=== PATIENT | male | born 1990 | race Caucasian/White ===

== ENCOUNTER 2017-06-23 18:51 | Emergency (ER) | payer MEDICAID ==
[~2017-06-23] VITALS: Ht 203.2 cm; Wt 141.5 kg
[~2017-06-23 18:51] MED LIST: APAP/HYDROCODON1 TA9 PO; AUGMENTIN 875-1 EACH PO; BUPROPION HCL75 M1 PO; CLONAZEPAM0.5 M1 PO; CYCLOBENZAPRINE10 M1 OR; DICLOFENAC 50MG50 MG PO; GABAPENTIN300 M1 PO; KEFLEX 500MG.500 MG PO; LISINOPRIL10 MG PO; MEDROL 4MG. DOSE4 MG PO; MOBIC7.5 MG PO; OXYCODONE 5MG TA5 MG PO; PANTOPRAZOLE SO40 M1 PO; PREDNISONE 20MG20 MG PO; PROTONIX 40MG T40 MG PO; TESSALON PERLE100 M1 PO; ZITHROMAX Z PA250 MG PO
[2017-06-23] MEDS ORDERED: ZITHROMAX Z-PA250 M2 PO (19:12)
[2017-06-23] MEDS ORDERED: PREDNISONE 20MG20 MG PO (19:12)
--- NOTE | 2017-06-23 19:12 | Urgent Treatment Center Report ---
History of Present Issue Date/Time Seen by Provider 06/23/17 1908 Visit Reason Pt arrived:Walked Presenting Problem:PT STATES HEADACHE, COLD CHILLS, COUGH, CONGESTION, TIREDNESS AND NAUSEA X1 WEEK Location if Accident: Onset of symptoms date/time:/ or onset unknown for:MEDICAL HX UNKNOWN Have you (or family members/close friends) recently traveled outside the [place]? N If Yes, where/when: Have you had exposure to infectious disease within the past month? TB? Other? Specify: Source patient Exam Limitations no limitations Comment 26-year-old male presents for cough, chest congestion, fever, chills, body aches , and nausea for one week. ALLERGIES Coded Allergies: tramadol (03/16/17) Home Medications Active Scripts Meloxicam (Mobic 7.5MG) 7.5 MG PO DAILY #7 TAB Prov: 04/06/17 Methylprednisolone (Medrol Dose Jason) 4 MG PO UD #1 JASON Prov: 05/10/17 Prednisone (Prednisone 20MG) 20 MG PO BID #10 TAB Prov: 04/01/17 Reported Medications BUPROPION HCL (Bupropion HCl 75MG) 75 MG PO DAILY #60 Lisinopril 10 MG PO DAILY #30 OXYCODONE IR (Oxycodone IR) 5 MG PO Q4HP PRN PAIN #90 Gabapentin 300 MG PO BID #60 Clonazepam (Clonazepam 0.5MG) 0.5 MG PO QHS #60 Pantoprazole Sodium 40 MG PO DAILY #30 History Medical History General CAD? No Angina: No [place]: No Hypertension? Yes Hyperlipidemia? No CHF? No DVT? No PE? No COPD? No Asthma? No Anemia? No GERD? No Gastric ulcers? No GI Bleed? No Hernia? No Thyroid Problems? No Hypothyroidism? No CVA? No Seizures? No Diabetes? No Renal Insuffiency? No UTI? No Stones? No BPH? No GB Disease: No Nephritic Syndrome? No Asplenia? No Hepatitis? No Sickle Cell Disease? No Arthritis? No Migraines? No Cataracts? No Glaucoma? No MRSA? No HIV? No TB? No Anxiety? Yes Depression? No Cancer? No More? Yes Additional hx: BACK PROBLEMS, ANXIETY, LUPUS Immunization HX DT/Tetanus 1-4 Years Ago Surgical Hx Previous Surgery?Y TONSILS Social History Smoking Hx Smoker: Current Every Day Smoker Tobacco: Yes Type Cigarettes Packs/day 1 1/2 - 2 Packs Alcohol Alcohol: No Review of Systems All Other Systems Reviewed and Negative Respiratory see HPI, cough, wheezing Physical Exam Vital Signs Vital Signs Date Time Temp Pulse Resp B/P Pulse O2 O2 Flow FiO2 Ox Delivery Rate 06/23 2003 97.7 67 20 143/99 100 06/23 1902 97.7 67 20 143/99 100 - WBC >12,000 or <4,000 or 10% bands? 2 or more SIRS Criteria Met? B/P:143/99 MAP:113 Creatinine >2.0? UA output<0.5ml/kg/hr for 2 hrs? Platelet count >100,000? Lactate >2.0mmol/1? INR >1.2 or PTT > than 60 sec? Evidence of Organ Dysfunction? Provider documented clinical suspician of infection? Sepsis Criteria Count: 1 Sepsis Risk: General Appearance normal appearance, WD/WN, no apparent distress Ear, Nose, Throat hearing grossly normal, normal ENT inspection, normal pharynx Neck normal inspection, full range of motion Respiratory Status Yes: trachea midline, chest symmetrical, non tender chest. No: respiratory distress. Lung Sounds posterior: decreased breath sounds, rhonchi, wheezing. left: decreased breath sounds, rhonchi, wheezing. Cardiovascular normal exam, regular rate/rhythm Neurologic alert, normal exam, oriented x 3 Medical Decision Making LABS/Meds/Orders Pt receiving controlled substance in ED? No Results/Orders Laboratory Tests 06/23/17 1930: Sodium 140, Potassium 3.8, Chloride 102, Carbon Dioxide 29, BUN 18, Creatinine 1.0, Estimated Creat Clear 220 H, Estimated GFR (MDRD) 89, Glucose 101, Calcium 9.4, Total Bilirubin 0.7, AST 24, ALT 34, Alkaline Phosphatase 90, Total Protein 7.8, Albumin 4.2, Globulin 3.6 H, Albumin/Globulin Ratio 1.2, WBC 6.8, RBC 4.88 , Hgb 14.7, Hct 44.1, MCV 90.4, RDW 13.8, Plt Count 148, Gran % 68.3, Gran # 4.6 , Lymphocytes % 27.3, Monocytes % 4.4, Lymphocytes # 1.9, Monocytes # 0.3, PUBS MCHC 33.3, MCH 30.1 Orders Procedure Date/time Status CHEST(2 VIEWS-NOT PORTABLE) 06/23 1907 Active CBC WITH AUTO DIFF 06/23 1907 Complete CHEM 12 PROFILE 06/23 1907 Complete Departure Departure Time of Disposition 1909 Disposition DC Home or Self Care(routine) Clinical Impression Primary Impression: Acute bronchitis Qualifiers: Bronchitis organism: unspecified organism Qualified Code: J20.9 - Acute bronchitis, unspecified Condition STABLE Referrals Chai NAVARRO,Guevara Shaffer (Family) Patient Instructions Acute Bronchitis, DI for Acute Bronchitis Additional Instructions Medications as ordered Follow-up with PCP this week if no improvement Tylenol Motrin as needed for pain or fever Return or be seen in the ER if symptoms worsen or do not improve Increase fluids Discharge Counseling Counseled pt/family regarding diagnosis, test results, medications/RX, home care, follow up needs Prescriptions Current Visit Scripts Azithromycin (Zithromax) 250 MG PO DAILY #6 TAB USE DIRECTED. Prednisone (Prednisone 20MG) 20 MG PO BID 5 Days at 2004
[2017-06-23 19:43] LABS: HEMOGLOBIN 14.7 g/dL (14.1-18.0)
[2017-06-23 19:44] LABS: LYMPH # 1.9 K/mm3 (0.7-4.5); LYMPH % 27.3 % (10-50)
[2017-06-23 20:03] VITALS: BP 143/99
--- NOTE | 2017-06-23 20:12 | RADIOLOGY REPORT PS360 ---
CHEST(2 VIEWS-NOT PORTABLE) INDICATION: Cough COMPARISON: PA and lateral chest 12/28/2016 FINDINGS: The lung white are well expanded and appear clear of infiltrate. The cardiomediastinal silhouette and vascularity are normal. The costophrenic angles are clear. The bony thorax is normal. IMPRESSION: Normal chest.
== END 2017-06-23 20:08 | disposition home or self-care (01) ==
LOC: UTC 18:51
PROVIDERS: Nurse Practitioner Family
DX: J20.9 Acute bronchitis, unspecified (principal); I10 Essential (primary) hypertension; F17.210 Nicotine dependence, cigarettes, uncomplicated; M35.9 Systemic involvement of connective tissue, unspecified; Z79.891 Long term (current) use of opiate analgesic; Z79.899 Other long term (current) drug therapy

== ENCOUNTER 2017-07-13 06:17 | Emergency (ER) | payer MEDICAID ==
[~2017-07-13] VITALS: Ht 203.2 cm; Wt 140.6 kg
--- NOTE | 2017-07-13 06:43 | Emergency Room Report ---
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 N Clinical Suspician of Infection? N Mental Status: 1 - Regular (Normal Baseline) Sepsis Risk:Low Sepsis Risk Have you (or family members/close friends) recently traveled outside the [place]? N If Yes, where/when: Have you had exposure to infectious disease within the past month? N TB? Other? Specify: Source patient, RN notes reviewed, family, old records Exam Limitations no limitations Comment hit scalp against light bulb with lac this am Cardiac Chest Pain Chest pain indicative of cardiac No Timing/Duration this morning Severity moderate ALLERGIES Coded Allergies: tramadol (03/16/17) Home Medications Active Scripts Azithromycin (Zithromax) 250 MG PO DAILY #6 TAB Prov: 06/23/17 Prednisone (Prednisone 20MG) 20 MG PO BID 5 Days Prov: 06/23/17 Meloxicam (Mobic 7.5MG) 7.5 MG PO DAILY #7 TAB Prov: 04/06/17 Methylprednisolone (Medrol Dose Jason) 4 MG PO UD #1 JASON Prov: 05/10/17 Prednisone (Prednisone 20MG) 20 MG PO BID #10 TAB Prov: 04/01/17 Reported Medications BUPROPION HCL (Bupropion HCl 75MG) 75 MG PO DAILY #60 Lisinopril 10 MG PO DAILY #30 OXYCODONE IR (Oxycodone IR) 5 MG PO Q4HP PRN PAIN #90 Gabapentin 300 MG PO BID #60 Clonazepam (Clonazepam 0.5MG) 0.5 MG PO QHS #60 Pantoprazole Sodium 40 MG PO DAILY #30 History Medical History General CAD? No Angina: No [place]: No Hypertension? Yes Hyperlipidemia? No CHF? No DVT? No PE? No COPD? No Asthma? No Anemia? No GERD? No Gastric ulcers? No GI Bleed? No Hernia? No Thyroid Problems? No Hypothyroidism? No CVA? No Seizures? No Diabetes? No Renal Insuffiency? No End Stage Renal Disease? No UTI? No Stones? No BPH? No GB Disease: No Nephritic Syndrome? No Asplenia? No Hepatitis? No Sickle Cell Disease? No Arthritis? No Migraines? No Cataracts? No Glaucoma? No MRSA? No HIV? No TB? No Anxiety? Yes Depression? No Cancer? No More? Yes Additional hx: BACK PROBLEMS, ANXIETY, LUPUS Immunization Hx DT/Tetanus 1-4 Years Ago Surgical Hx Previous Surgery?Y TONSILS Social History Smoking Hx Smoker: Current Every Day Smoker Tobacco: Yes Type Cigarettes Packs/day 1 1/2 - 2 Packs Alcohol Alcohol: No Drugs none Review of Systems All Other Systems Reviewed and Negative Constitutional denies fever Eyes denies drainage ENT denies: ear pain, epistaxis, throat swelling. Respiratory denies cough, denies shortness of breath Cardiovascular denies chest pain, denies syncope Gastrointestinal denies abdominal pain, denies diarrhea, denies vomiting Genitourinary denies: dysuria, frequency, hesitancy, hematuria. Musculoskeletal denies back pain, denies joint pain, denies joint swelling, denies neck pain Skin see HPI, denies rash, other Psychiatric/Neurological denies headache, denies seizure Physical Exam Vital Signs Vital Signs Date Time Temp Pulse Resp B/P Pulse O2 O2 Flow FiO2 Ox Delivery Rate 07/13 0622 97.9 79 20 131/99 96 - WBC >12,000 or <4,000 or 10% bands? 2 or more SIRS Criteria Met? B/P:131/99 MAP:109 Creatinine >2.0? UA output<0.5ml/kg/hr for 2 hrs? Platelet count >100,000? Lactate >2.0mmol/1? INR >1.2 or PTT > than 60 sec? Evidence of Organ Dysfunction? Provider documented clinical suspician of infection? N Sepsis Criteria Count: 1 Sepsis Risk: Low Sepsis Risk General Appearance no apparent distress Eye Exam - bilateral eye PERRL, bilateral eye EOMI Ear, Nose, Throat normal ENT inspection Neck supple Respiratory Status No: respiratory distress. 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 No Results/Orders Current Medication Orders Sig/Jonathan Start time Last Medication Dose Route Stop Time Status Admin Lidocaine HCl 0 .STK-MED ONE 07/13 0644 DC .ROUTE Procedures Laceration/Wound Repair Laceration/Wound Repair Risks/benefits discussed with pt/guardian? Yes Tetanus status up to date Wound Location head Wound Length (cm) 1 Wound's Depth, Shape sucutaneous tissue Wound Explored no FB identified Risk of retained FB explained to pt/guardian? Yes Irrigated w/ Saline (ccs) 0 Wound Prep Hibiclens, Saline Anesthesia 1% Lidocaine, Local Volume Anesthetic (ccs) 2 Wound Debrided none Wound Repaired With karina Layer Closure No Total Number Sutures 3 Sterile Dressing Applied No Splint Applied No Sling Applied No Departure Departure Time of Disposition 0643 Disposition DC Home or Self Care(routine) Clinical Impression Primary Impression: Scalp laceration Qualifiers: Encounter type: initial encounter Qualified Code: S01.01XA - Laceration without foreign body of scalp, initial encounter Condition STABLE Patient Instructions DI for Laceration Repair -- [place] Additional Instructions karina out 10 days Discharge Counseling Counseled pt/family regarding diagnosis, follow up needs ED Critical Care Critical Care No at 0674
[2017-07-13 06:55] VITALS: BP 131/99
--- OUTSIDE RECORDS SUMMARY | 2017-07-20 02:21 | External Medical Summary Rpt | CCD ---
Author Author , MARCELLA NARANJO Address Unknown Phone [email or web address] Care Team Providers Care Radius Grinder Name Role Phone PANG, PANG Unavailable Unavailable [facility] Unavailable Unavailable PHYSICIANS, [facility] DEREK REED Unavailable Unavailable JR FITZPATRICK FULLER, Unavailable Unavailable MIKI MICHELLE Unavailable Unavailable [facility] Unavailable Unavailable [facility], [facility] DOWD, DOWD Unavailable Unavailable DOW[facility], DOWD Unavailable Unavailable [facility], Unavailable Unavailable [facility] Unavailable Unavailable IM[facility]ING [facility], [facility], Unavailable Unavailable PLL[facility], [facility] RENUSCH, RENUSCH Unavailable Unavailable MARILY, Unavailable Unavailable MARILY NAVARRETE, Unavailable Unavailable [facility] Purpose Continuity of Care Document - 04-29-2014 through 2016 Problems Code Diagnosis DOS Provider Status [id number] OTHER LONG 05-18-2017 [facility] CURRENT INC DRUG THERAPY G8929 OTHER 05-11-2017 [facility]RONIC [facility] PAIN PLL[facility] I10 ESSENTIAL 05-11-2017 [facility] HYPERTENSIO INC N M545 LOW BACK 05-11-2017 [facility] PAIN [facility] Z720 TOBACCO USE 05-11-2017 [facility] INC L34935 PAIN IN 04-06-2017 [facility] 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 [facility] NEC E651LDC CONTUSION 04-06-2017 [facility] LOWER BACK PHYSICIANS, & PELVIS PLLC INITIAL ENCOUNTER [id number] STRAIN 04-06-2017 [facility] MUSCLE [facility], FASCIA & PLLC TENDON LOW BACK INITIAL N23 UNSPECIFIED 03-25-2017 [facility] RENAL [facility], COLIC PLLC R1012 LEFT UPPER 03-25-2017 [facility] PAIN INC R109 UNSPECIFIED 03-25-2017 [facility] ABDOMINAL [facility], PAIN PLLC K20159 PAIN IN 03-16-2017 [facility] LEFT MEDICAL SHOULDER [facility] X28825 PAIN IN 03-16-2017 [facility]IP [facility] H12290 PAIN IN 03-16-2017 [facility] LEFT ANKLE [facility]ICAL [facility] [id number] CONTUSION 03-16-2017 [facility] OF LEFT HIP PHYSICIANS, INITIAL PLLC ENCOUNTER E5866MC CONTUSION 03-16-2017 [facility] OF LEFT PHYSICIANS, LOWER LEG PLLC INITIAL ENCOUNTER [id number] CONTUSION 03-16-2017 [facility] ANKLE INC INITIAL ENCOUNTER T148 OTHER 03-16-2017 [facility] INJURY OF PHYSICIANS, UNSPECIFIED PLLC BODY REGION R070 PAIN IN 03-08-2017 [facility] THROAT [facility], PLLC R0989 OTH SPEC SX 03-08-2017 [facility] & SIGNS PHYSICIANS, INVLV THE PLLC CIRC & RESP SYS R42 DIZZINESS 03-08-2017 [facility] GIDDINESS INC M542 CERVICALGIA 02-05-2017 [facility] INC H5203 HYPERMETROP 02-02-2017 [facility] IA BILATERAL M5416 RADICULOPAT 01-17-2017 [facility] HY LUMBAR [facility]YS[facility] GROUP R768 OTH SPEC 01-17-2017 [facility] ABNORMAL PHYS[facility]ANS IMMUNOLOGIC GROUP AL FIND IN SERUM K219 GASTRO-ESOP 01-14-2017 [facility] H REFLUX PHYSICIANS, DISEASE PLLC WITHOUT ESOPHAGITIS R4702 DYSPHASIA 01-14-2017 [facility] [id number] UNS FB 01-14-2017 [facility] PHARYNX PHYSICI[facility], CAUSING OTH PLLC INJURY INIT ENC Z0000 ENCOUNTER 01-09-2017 [facility] MED EXAM INC W/O ABNORMAL FIND M5116 INTERVERTEB 01-07-2017 [facility] D/O INC W/RADICULOP ATHY LUMB RGN J209 ACUTE 12-28-2016 [facility] UNSPECIFIED INC R0602 SHORTNESS 12-28-2016 [facility] Z164SVE SPRAIN 12-10-2016 [facility] CERVICAL PHYSICIANS SPINE INITIAL ENCOUNTR J0100 ACUTE 11-22-2016 [facility] SINUSITIS INC UNSPECIFIED Allergies, Adverse Reactions, Alerts Clinical Alert Notifications Alert Member has >/= 10 ED visits within the past 365 days Medications Na ND Rx Da Fi Fi Am Da Di Ph RX Ph St me C No te ll ll ou ys ag ar # ys at rm s nt no ma ic us Or Da si cy ia de te s n re d HY 00 09 10 [address] 40 -0 -0 .0 00 TE ti OC 60 8- 6- 00 01 ve OD 12 20 20 19 AI ON 30 17 17 88 D -A 1 05 PH CE AR TA MA ID CY NO PH #3 EN 93 8 5- 32 5 LI 00 09 09 30 30 00 EA Ac SI 37 -0 -[address] ti NO 82 3- 9- 00 00 SI ve DE 07 20 20 50 DE IL 41 17 17 01 0 95 PH 10 AR MA MG CY TA OF BL CY ET NT HI AN A IN C ES 65 08 09 30 30 00 EA Ac CI 86 -1 -[address] ti TA 20 1- 8- 00 00 SI ve LO 37 20 20 49 DE DE 40 17 17 76 AM 1 51 PH AR 10 MA CY MG OF TA CY BL NT ET HI AN A IN C HY 00 08 09 [address] 40 -1 -[address] ti OC 60 1- 8- 00 00 SI ve OD 12 20 20 49 DE ON 30 17 17 76 -A 5 00 PH CE AR TA MA ID CY NO PH OF EN CY NT 5- HI 32 AN 5 A IN C GA 67 08 09 60 30 00 EA Ac BA 87 -1 -[address] ti PE 70 6- 8- 00 00 SI ve NT 22 20 20 49 DE IN 30 17 17 47 5 78 PH 30 AR 0 MA MG CY CA OF PS CY UL NT E HI AN A IN C CL 00 08 09 60 30 00 EA Ac ON 22 -1 -[address] ti AZ 83 6- 8- 00 00 SI ve EP 00 20 20 49 DE AM 35 17 17 47 0 77 PH 0. AR 5 MA MG CY TA OF BL CY ET NT HI AN A IN C LI 00 07 08 30 30 00 EA Ac SI 18 -3 -[address] ti NO 50 1- 5- 00 00 SI ve DE 61 20 20 49 DE IL 01 17 17 63 0 26 PH 10 AR MA MG CY TA OF BL CY ET NT HI AN A IN C BU 00 07 08 60 30 00 EA Ac DE 59 -3 -[address] ti OP 13 1- 5- 00 00 SI ve IO 54 20 20 49 DE N 10 17 17 34 HC 5 91 PH L AR SR MA CY 15 0 OF MG CY NT TA HI BL AN ET A IN C CL 00 07 08 60 30 00 EA Ac ON 22 -1 -[address] ti AZ 83 8- 1- 00 00 SI ve EP 00 20 20 49 DE AM 35 17 17 47 0 77 PH 0. AR 5 MA MG CY TA OF BL CY ET NT HI AN A IN C GA 67 07 08 60 30 00 EA Ac BA 87 -1 -[address] ti PE 70 8- 1- 00 00 SI ve NT 22 20 20 49 DE IN 30 17 17 47 5 78 PH 30 AR 0 MA MG CY CA OF PS CY UL NT E HI AN A IN C OX 65 07 08 90 30 00 EA Ac YC 16 -1 -[address] ti OD 20 8- 1- 00 00 SI ve ON 20 20 20 49 DE -A 75 17 17 47 CE 0 84 PH TA AR ID MA NO CY PH EN OF CY 7. NT 5- HI 32 AN 5 A IN C HY 00 07 07 [address] 40 -0 -[address] ti OC 60 5- 8- 00 00 SI ve OD 12 20 20 49 DE ON 40 17 17 34 -A 5 80 PH CE AR TA MA ID CY NO PH OF CY 7. NT 5- HI 32 AN 5 A IN C BU 60 07 07 60 30 00 EA Ac DE 50 -0 -[address] ti OP 50 1- 8- 00 00 SI ve IO 15 20 20 48 DE N 80 17 17 65 HC 1 70 PH L AR 75 MA CY MG OF TA CY BL NT ET HI AN A IN C LI 00 07 07 30 30 00 EA Ac SI 18 -0 -[address] ti NO 50 1- 8- 00 00 SI ve DE 61 20 20 48 DE IL 01 17 17 65 0 64 PH 10 AR MA MG CY TA OF BL CY ET NT HI AN A IN C OX 13 06 07 90 30 00 EA Ac YC 10 -2 -[address] ti OD 70 0- 4- 00 00 SI ve ON 05 20 20 49 DE E 50 17 17 19 HC 1 77 PH L AR 5 MA MG CY TA OF BL CY ET NT HI AN A IN C DI 00 06 07 30 15 00 EA Ac CL 22 -0 -[address] ti OF 82 9- 7- 00 00 SI ve EN 55 20 20 49 DE AC 09 17 17 08 6 19 PH SO AR D MA EC CY 50 OF CY MG NT HI TA AN B A IN C CL 06 06 60 30 00 EA Ac ON 18 -0 -[address] ti AZ 50 6- 0- 00 00 SI ve EP 06 20 20 49 DE AM 30 17 17 03 5 04 PH 0. AR 5 MA MG CY TA OF BL CY ET NT HI AN A IN C HY 06 90 [address] 40 -0 -[address] ti OC 60 6- 0- 00 00 SI ve OD 12 20 20 49 DE ON 40 17 17 03 -A 5 05 PH CE AR TA MA ID CY NO PH OF CY 7. NT 5- HI 32 AN 5 A IN C GA 06 60 30 00 EA Ac BA 87 -0 -[address] ti PE 70 7- 0- 00 00 SI ve NT 22 20 20 48 DE IN 30 17 17 65 5 63 PH 30 AR 0 MA MG CY CA OF PS CY UL NT E HI AN A IN C LI 06 30 30 00 EA Ac SI 18 -0 -[address] ti NO 50 7- 0- 00 00 SI ve DE 61 20 20 48 DE IL 01 17 17 65 0 64 PH 10 AR MA MG CY TA OF BL CY ET NT HI AN A IN C BU 60 05 06 60 30 00 EA Ac DE 50 -1 -[address] ti OP 50 8- 6- 00 00 SI ve IO 15 20 20 48 DE N 80 17 17 65 HC 1 70 PH L AR 75 MA CY MG OF TA CY BL NT ET HI AN A IN C HY 06 [address] 40 -0 -[address] ti OC 60 8- 2- 00 00 SI ve OD 12 20 20 48 DE ON 40 17 17 65 -A 5 65 PH CE AR TA MA ID CY NO PH OF CY 7. NT 5- HI 32 AN 5 A IN C GA 06 60 30 00 EA Ac BA 87 -0 -[address] ti PE 70 8- 2- 00 00 SI ve NT 22 20 20 48 DE IN 30 17 17 65 5 63 PH 30 AR 0 MA MG CY CA OF PS CY UL NT E HI AN A IN C LI 00 05 06 30 30 00 EA Ac SI 18 -0 -[address] ti NO 50 8- 2- 00 00 SI ve DE 61 20 20 48 DE IL 01 17 17 65 0 64 PH 10 AR MA MG CY TA OF BL CY ET NT HI AN A IN C OX 13 04 05 90 30 00 EA Ac YC 10 -1 -[address] ti OD 70 8- 2- 00 00 SI ve ON 05 20 20 48 DE E 50 17 17 40 HC 1 45 PH L AR 5 MA MG CY TA OF BL CY ET NT HI AN A IN C BU 60 04 05 60 30 00 WA Ac DE 50 -1 -1 .0 00 L- ti OP 50 8- 2- 00 07 MA ve IO 15 20 20 48 RT N 80 17 17 30 HC 1 87 PH L AR 75 MA CY MG #5 TA 91 BL ET CL 16 04 05 60 30 00 WA Ac ON 72 -1 -1 .0 00 L- ti AZ 90 8- 2- 00 04 MA ve EP 13 20 20 53 RT AM 61 17 17 00 6 58 PH 0. AR 5 MA MG CY TA #5 BL 91 ET PA 68 04 05 30 30 00 WA Ac NT 64 -0 -0 .0 00 L- ti OP 50 9- 5- 00 07 MA ve RA 49 20 20 48 RT ZO 27 17 17 12 LE 0 14 PH AR SO MA D CY DR #5 40 91 MG TA B HY 00 04 05 [address] 40 -1 -0 .0 00 TE ti OC 60 2- 5- 00 01 ve OD 12 20 20 17 AI ON 40 17 17 96 D -A 1 89 PH CE AR TA MA ID CY NO PH #3 93 7. 8 5- 32 5 LI 54 04 05 30 30 00 WA Ac SI 45 -1 -0 .0 00 L- ti NO 80 2- 5- 00 07 MA ve DE 99 20 20 48 RT IL 71 17 17 20 0 01 PH 10 AR MA MG CY TA #5 BL 91 ET GA 53 04 05 60 30 00 WA Ac BA 74 -1 -0 .0 00 L- ti PE 60 2- 5- 00 07 MA ve NT 10 20 20 48 RT IN 20 17 17 20 5 02 PH 30 AR 0 MA MG CY CA #5 PS 91 UL E PO 62 04 05 51 30 00 WA Ac LY 17 -1 -0 0. 00 L- ti ET 50 2- 5- 00 07 MA ve HY 44 20 20 0 48 RT LE 21 17 17 20 NE 5 03 PH AR GL MA YC CY OL #5 33 91 50 PO WD HY 00 04 04 30 [address] 40 -0 -2 .0 00 L- ti OC 60 4- 8- 00 02 MA ve OD 12 20 20 23 RT ON 30 17 17 98 -A 1 04 PH CE AR TA MA ID CY NO PH #5 EN 91 5- 32 5 GA 53 04 04 90 30 00 IL Ac BA 74 -0 -2 .0 00 L- ti PE 60 4- 8- 00 07 MA ve NT 10 20 20 48 RT IN 10 17 17 04 5 51 PH 10 AR 0 MA MG CY CA #5 PS 91 UL E DE 00 04 04 10 5 00 IL Ac ED 14 -0 -2 .0 00 L- ti NI 39 4- 8- 00 07 MA ve SO 73 20 20 48 RT NE 80 17 17 00 5 75 PH 20 AR MA MG CY TA #5 BL 91 ET AM 00 03 04 20 10 00 IL Ac OX 78 -2 -2 .0 00 L- ti -C 11 3- 1- 00 07 MA ve LA 85 20 20 47 RT V 22 17 17 82 87 0 43 PH 5- AR 12 MA 5 CY MG #5 TA 91 BL ET BE 68 03 04 30 10 00 [facility] [place] 38 -2 -2 .0 00 L- ti ON 20 3- 1- 00 07 MA ve AT 24 20 20 47 RT AT 70 17 17 82 E 1 44 PH 10 AR 0 MA MG CY CA #5 PS 91 UL E CY 10 03 03 30 10 00 RI Ac CL 70 -0 -3 .0 00 TE ti OB 20 6- 1- 00 01 ve EN 00 20 20 17 AI ZA 75 17 17 38 D DE 0 05 PH IN AR E MA 10 CY MG #3 93 TA 8 BL ET NA 68 03 03 30 15 00 RI Ac DE 46 -0 -3 .0 00 TE ti OX 20 6- 1- 00 01 ve EN 19 20 20 17 AI 00 17 17 38 D 50 1 06 PH 0 AR MG MA CY TA BL #3 ET 93 8 AZ 59 02 03 6. 5 00 IL Ac IT 76 -1 -1 00 00 L- ti HR 23 6- 7- 0 07 MA ve OM 06 20 20 47 RT YC 00 17 17 10 IN 1 53 PH AR 25 MA 0 CY MG #5 TA 91 BL ET Results Labs Lab Lab Date Result Refere Interp Status Commen Order Detail nces retati t Range on Drugs identified in Urine by Screen method (05-18-2017 09:35) Ampheta 0811-2 NEGATIV <1000 complet mine 017 E ed [Presen 09:35 ce] in Urine by Screen method 11-Hydr NEGATIV <50 complet oxy 017 E ed delta-9 09:35 tetrahy drocann abinol [Presen ce] in Unspeci fied specime n Urinalysis dipstick W Reflex Microscopic panel in Urine (05-15-2017 22:45) Bacteri 1+ O complet a 017 ed [Presen 22:45 ce] in Urine sedimen t by Light microsc opy Mucus OCC NONE complet [Presen 017 ed ce] in 22:45 Urine sedimen t by Light microsc opy Erythro OCC 0 complet cytes 017 ed [Presen 22:45 ce] in Urine sedimen t by Light microsc opy Drugs identified in Urine by Screen method (05-15-2017 22:45) Ampheta NEGATIV <1000 complet mine 017 E ed [Presen 22:45 ce] in Urine by Screen method 11-Hydr NEGATIV <50 complet oxy 017 E ed delta-9 22:45 tetrahy drocann abinol [Presen ce] in Unspeci fied specime n Urinalysis dipstick W Reflex Microscopic panel in Urine (05-15-2017 22:45) Appeara CLEAR CLEAR complet nce of 017 ed Urine 22:45 Bilirub NEGATIV NEG complet in 017 E ed [Presen 22:45 ce] in Urine by Test strip Erythro NEGATIV NEG complet cytes 017 E ed [Presen 22:45 ce] in Urine Color YELLOW YELLOW complet of 017 ed Urine 22:45 Ketones NEGATIV NEG complet 017 E ed [Presen 22:45 ce] in Urine by Automat ed test strip Mucus NEGATIV NEG complet [Presen 017 E ed ce] in 22:45 Urine sedimen t by Light microsc opy Nitrite NEGATIV NEG complet 017 E ed [Presen 22:45 ce] in Urine by Test strip Urobili 08-08-2 0.2 NEG complet nogen 017 ed [Presen 22:45 ce] in Urine by Test strip Drugs identified in Urine by Screen method (04-24-2017 09:45) Ampheta 04-24-2 NEGATIV <1000 complet mine 017 E ed [Presen 09:45 ce] in Urine by Screen method 11-Hydr 04-24-2 NEGATIV <50 complet oxy 017 E ed delta-9 09:45 tetrahy drocann abinol [Presen ce] in Unspeci fied specime n Drugs identified in Urine by Screen method (04-11-2017 14:15) Ampheta --2 NEGATIV <1000 complet mine 017 E ed [Presen 14:15 ce] in Urine by Screen method 11-Hydr 04-11-2 NEGATIV <50 complet oxy 017 E ed delta-9 14:15 tetrahy drocann abinol [Presen ce] in Unspeci fied specime n Drugs identified in Urine by Screen method (03-27-2017 13:10) Ampheta 03-27-2 NEGATIV <1000 complet mine 017 E ed [Presen 13:10 ce] in Urine by Screen method 11-Hydr 03-27-2 NEGATIV <50 complet oxy 017 E ed delta-9 13:10 tetrahy drocann abinol [Presen ce] in Unspeci fied specime n Drugs identified in Urine by Screen method (03-13-2017 13:15) Ampheta 06--2 NEGATIV <1000 complet mine 017 E ed [Presen 13:15 ce] in Urine by Screen method 11-Hydr 03-13-2 NEGATIV <50 complet oxy 017 E ed delta-9 13:15 tetrahy drocann abinol [Presen ce] in Unspeci fied specime n SYPHILIS IGG TEST (EIA) (06-10-2014 08:00) Community Outreach Advocate: Sadie Marquez MD FCAP Lab: [facility] Division of Laboratory Services Lab Address: [address] [place] [address], [address] [place] [address] 06-10-2014 8:00 am Specimen Collection Start Date/Time: Manager Credit Risk: Specimen Ming'valdez 06-15-2014 9:29 am Date/Time: Ordering Physician: ASIYA BEAL (RENETTA) 06-16-2014 8:31 am Results Rpt/Status Change Date/Time: This report contains patient information that must be protected in accordance with the Health Insurance Portability and Accountability Act. SYPHILI NON-GHASSAN complet S IGG 014 CTIVE ed TEST 08:00 (EIA) Comment: METHOD OF ANALYSIS: EIA Comment: NORMAL RANGE: NON-REACTIVE Comment: \E\.br\E\This report contains patient information that must be protected in accordance with the Health Insurance Portability and Accountability Act. CHART [id number] complet NUMBER 014 ed 08:00 SPECIME BLOOD complet N 014 ed SOURCE 08:00 PURPOSE ROUTINE complet OF 014 ed EXAM 08:00 ETHNICI W complet TY 014 ed 08:00 COLLECT N/A complet OR 014 ed 08:00 Treponema pallidum IgG Ab [Presence] in Serum by Immunoassay (06-10-2014 08:00) Trepone NON-GHASSAN complet ma 014 CTIVE ed pallidu 08:00 m IgG Ab [Presen ce] in Serum by Immunoa ssay Treponema pallidum IgG Ab [Presence] in Serum by Immunoassay (06-10-2014 08:00) COLLECT N/A complet OR 014 ed 08:00 ETHNICI W complet TY 014 ed 08:00 PURPOSE ROUTINE complet OF 014 ed EXAM 08:00 SPECIME BLOOD complet N 014 ed SOURCE 08:00 CHART [id number] complet NUMBER 014 ed 08:00 Trepone Pending complet ma 014 ed pallidu 08:00 m IgG Ab [Presen ce] in Serum by Immunoa ssay Procedures Procedure DOS Code Location Performer Comment DRUG TEST 67110 [facility] QUAL DIR INC INC OPTICAL OBS PER DAY THERAPEUT 00227 [facility] IC [facility] PROPHYLAC INC INC TIC/DX INJECTION SUBQ/IM DRUG TEST 64840 [facility] QUAL DIR INC INC OPTICAL OBS PER DAY DRUG TEST 87911 [facility]V [facility] QUAL DIR INC INC OPTICAL OBS PER DAY RADEX 94667 [facility] SPINE [facility] LUMBOSACR INC INC AL MINIMUM 4 VIEWS RADEX 30501 [facility] SACRUM & [facility] COCCYX INC INC MINIMUM 2 VIEWS RADIOLOGI 03306 [facility] C [facility] EXAMINATI INC INC ON PELVIS 1/2 VIEWS DRUG TEST 60372 [facility] QUAL DIR INC INC OPTICAL OBS PER DAY COMPREHEN 64573 [facility] SIVE [facility] METABOLIC INC INC PANEL URNLS DIP 00928 [facility] STICK/TAB INC INC LET RGNT AUTO W/O MICROSCOP Y FINAL G9638 [place] [facility] REPORTS 7 MEDICAL W/O DOC IMAGING 1/MORE ASS DOSE REDUCTION TECH FINAL G9551 [place] [facility] REPR ABD 7 MEDICAL IMAG STS IMAGING W/O ASS INCIDNT FND LES NTD: THER 66059 [facility] PROPH/DX [facility] NJX EA INC INC SEQL IV PUSH SBST/[place] [address] [facility]OM[facility] & 7 MEDICAL PELVIS IMAGING [place] [address] [facility] INFUSION [facility] THERAPY/P INC INC ROPHYLAXI S /DX 1ST TO 1 HR THERAPEUT 31257 [facility] IC [facility] INJECTION INC INC IV PUSH EACH NEW DRUG BLOOD 03228 [facility] COUNT [facility] COMPLETE INC INC AUTO&AUTO DIFRNTL WBC RADEX 11663 [facility] HIPS [facility] BILATERAL INC INC WITH PELVIS 2 VIEWS RADEX 67794 [facility] SACRUM & 7 MEDICAL COCCYX IMAGING MINIMUM 2 ASS VIEWS RADEX 11003 [place] [facility] HIPS 7 MEDICAL BILATERAL IMAGING WITH ASS PELVIS 3-4 VIEWS RADEX 72547 [facility] ANKLE 7 MEDICAL COMPLETE IMAGING MINIMUM 3 ASS VIEWS DRUG TEST G0481 [facility] DEFINITV [address] [facility] [address] ID INC INC METH P DAY 8-14 DRUG CL DRUG TEST 46638 [facility] QUAL DIR INC INC OPTICAL OBS PER DAY FINAL G9638 [facility] REPORTS 7 MEDICAL W/O DOC IMAGING 1/MORE ASS DOSE REDUCTION TECH CT SOFT 84065 [facility] TISSUE 7 MEDICAL NECK IMAGING W/CONTRAS ASS T MATERIAL BLOOD 76004 [facility] COUNT [facility] COMPLETE INC INC AUTO&AUTO DIFRNTL WBC FINAL RPT G[address]/MRI 7 MEDICAL CHEST/NCK IMAGING /U/S NO ASS THR NOD<1.0 CM BASIC 11906 [facility] METABOLIC [facility] PANEL INC INC CALCIUM TOTAL THERAPEUT 20211 [facility] IC PX 1/> 7 [facility] AREAS INC INC EACH 15 MIN EXERCISES DRUG TEST 54528 [facility]V [facility] QUAL DIR INC INC OPTICAL OBS PER DAY DRUG 42053 [facility] SCREENING 7 [facility] OPIOIDS INC INC & OPIATE ANALOGS 5/MORE THERAPEUT 09378 [facility] IC PX 1/> 7 [facility] AREAS INC INC EACH 15 MIN EXERCISES OPHTH 87096 [facility] 7 XM&EVAL COMPRE NEW PT 1/> VST THERAPEUT 17915 [facility] IC PX 1/> 7 [facility] AREAS INC INC EACH 15 MIN EXERCISES DRUG 48966 [facility] SCREENING 7 [facility] OPIOIDS INC INC & OPIATE ANALOGS 5/MORE DRUG TEST 09662 [facility] PRSMV [facility] QUAL DIR INC INC OPTICAL OBS PER DAY PHYSICAL 87073 [facility] THERAPY 7 [facility] EVALUATIO INC INC N MOD COMPLEX 30 MINS RADIOLOGI 65722 [facility] C [facility] EXAMINATI [place] [address] [facility] STREPTOCO 7 [facility] CCUS INC INC GROUP A CUL BACT 36340 [facility] XCPT [facility] URINE INC INC BLOOD/[place] [address] [facility] BLOOD/URI 7 [facility] C ACID INC INC BLOOD 40734 [facility] COUNT 7 [facility] COMPLETE INC INC AUTO&AUTO DIFRNTL WBC ANTINUCLE 54871 [facility] AR 7 [facility] ANTIBODIE INC INC S ANITA SEDIMENTA 38015 [facility] TIJOSHUA RATE 7 [facility] RBC INC INC NON-AUTOM ATED C-REACTIV 85882 [facility] E PROTEIN 7 [facility] INC INC COMPREHEN 55922 [facility] SIVE 7 [facility] METABOLIC INC INC PANEL DRUG TEST 38794 [facility] PRSMV 7 [facility] QUAL DIR INC INC OPTICAL OBS PER DAY LIPID 27352 [facility] PANEL 7 [facility] INC INC RHEUMATOI 63256 [facility] D FACTOR 7 [facility] QUANTITAT INC INC JOAN HEMOGLOBI 97208 W[facility] N 7 [facility] GLYCOSYLA [place] [address] [facility] FREE [facility] [place] [address] [facility] THYROID 7 [facility] STIMULATI INC INC NG HORMONE TSH URNLS DIP 27535 [facility] STICK/TAB INC INC LET REAGENT AUTO MICROSCOP Y RADIOLOGI 05962 [facility] EXAM 7 MEDICAL CHEST 2 IMAGING VIEWS ASS FRONTAL&L ATERAL IAADIADOO 51419 [facility] STREPTOCO INC INC CCUS GROUP A IAADIADOO 84299 [facility] INFLUENZA INC INC Encounters Encounter Start End Date Code Location Performer Type Date [facility] WAN - 7 7 [facility] OUTPATIEN INC T EMERGENCY 69601 [facility] FERREIRA 7 7 PHYSICIAN DEPARTMEN S [facility] T VISIT HIGH/URGE NT SEVERITY HOSPITAL WAN Guzman 7 [facility] OUTPATIEN INC T EMERGENCY 57948 WAN 7 7 [facility] DEPARTMEN [facility] T VISIT LOW/MODER SEVERITY HOSPITAL WAN - 7 7 [facility] OUTPATIEN INC T HOSPITAL WAN - 7 7 [facility] OUTPATIEN INC T EMERGENCY 94043 MARRY LIVINGSTON 7 7 PHYSICIAN [facility] T VISIT HIGH/URGE NT SEVERITY EMERGENCY 66531 WAN 7 7 [facility] DEPARTMEN [facility] T VISIT LOW/MODER SEVERITY HOSPITAL WAN - 7 7 [facility] OUTPATIEN INC HOSPITAL WAN - 7 7 [facility] OUTPATIEN INC T EMERGENCY 24432 WAN CORTEST 7 7 [facility] VISIT INC HIGH SEVERITY& THREAT FUN HOSPITAL WAN - 7 7 [facility] OUTPATIEN INC HOSPITAL WAN - 7 7 [facility] OUTPATIEN INC T EMERGENCY 75734 Megan YANG 7 [facility] T VISIT HIGH/URGE NT SEVERITY EMERGENCY 75014 WAN 7 7 [facility] DEPARTMEN INC T VISIT LOW/MODER SEVERITY HOSPITAL WAN - Megan 7 [facility] OUTPATIEN INC T EMERGENCY [id number] MARRY GALINDO 7 7 PHYSICIAN VISIT S, [facility] HIGH SEVERITY& THREAT FUNCJ EMERGENCY [id number] WAN 7 7 [facility] DEPARTMEN [facility] T VISIT LOW/MODER SEVERITY [facility]OSPITAL WAN - 7 7 [facility] T [facility] WAN - 7 7 [facility] T [facility] WAN - 7 7 [facility] T [facility] WAN - 7 7 [facility] T OFF[facility] [id number] [facility]YSICIAN T VISIT S GROUP 25 MINUTES HOSPITAL WAN - 7 7 [facility] OUTPATIEN INC T EMERGENCY [id number] WAN 7 7 [facility] DEPARTMEN [facility] T VISIT LOW/MODER SEVERITY HOSPITAL WAN - 7 7 [facility] OUTPATIEN INC T EMERGENCY [id number] MARRY TEMPLE 7 7 PHYSICIAN U DEPARTMEN S, [facility] T VISIT HIGH/URGE NT SEVERITY HOSPITAL WAN - 7 7 [facility] OUTPATIEN INC T EMERGENCY [id number] WAN 7 7 [facility] DEPARTMEN [facility] T VISIT LOW/MODER SEVERITY HOSPITAL WAN - 7 7 [facility] OUTPATIEN [facility] T HOSPITAL WAN - 7 7 [facility] OUTPATIEN [facility] T EMERGENCY [id number] WAN 7 7 [facility] DEPARTMEN [facility] T VISIT LOW/MODER SEVERITY EMERGENCY [id number] CHITO CASEY 7 7 EMERGENCY N DEPARTMEN T VISIT PHYSICIAN MODERATE S SEVERITY OFFICE [id number] WAN NAVAS 7 7 [facility] T NEW 10 INC MINUTES HOSPITAL WAN - 7 7 [facility] OUTPATIEN INC T
--- OUTSIDE RECORDS SUMMARY | 2017-07-20 02:21 | External Medical Summary Rpt | CCD ---
Author Author , MARCELLA NARANJO Address Unknown Phone [email or web address] Care Team Providers Care Gallery Or Museum Guide Name Role Phone PANG, PANG Unavailable Unavailable [facility] Unavailable Unavailable PHYSICIANS, [facility] DEREK REED Unavailable Unavailable JR FITZPATRICK FULLER, Unavailable Unavailable MIKI MICHELLE Unavailable Unavailable [facility] Unavailable Unavailable INC, [facility] DOWD, DOWD Unavailable Unavailable [facility], DOWD Unavailable Unavailable [facility], Unavailable Unavailable [facility] Unavailable Unavailable IM[facility]ING [facility], [facility], Unavailable Unavailable PLL[facility], [facility] RENUSCH, RENUSCH Unavailable Unavailable MARILY, Unavailable Unavailable MARILY NAVARRETE, Unavailable Unavailable SOT[facility] Purpose Continuity of Care Document - 04-29-2014 through 2016 Problems Code Diagnosis DOS Provider Status [id number] OTHER LONG 05-18-2017 [facility] CURRENT INC DRUG THERAPY G8929 OTHER 05-11-2017 [facility]RONIC [facility] PAIN [facility] I10 ESSENTIAL 05-11-2017 [facility] HYPERTENSIO INC N M545 LOW BACK 05-11-2017 [facility] PAIN [facility] Z720 TOBACCO USE 05-11-2017 [facility] INC N72814 PAIN IN 04-06-2017 [facility] 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 04-06-2017 [facility]AL [facility] DISORDERS [facility] NEC H171CSG CONTUSION 04-06-2017 [facility] LOWER BACK PHYSICIANS, & PELVIS PLLC INITIAL ENCOUNTER [id number] STRAIN 04-06-2017 [facility] MUSCLE [facility], FASCIA & PLLC TENDON LOW BACK INITIAL N23 UNSPECIFIED 03-25-2017 [facility] RENAL [facility], COLIC PLLC R1012 LEFT UPPER 03-25-2017 [facility] PAIN INC R109 UNSPECIFIED 03-25-2017 [facility] ABDOMINAL [facility], PAIN PLLC M05672 PAIN IN 03-16-2017 [facility] LEFT MEDICAL SHOULDER [facility] W16708 PAIN IN 03-16-2017 [facility] LEFT [facility]IP [facility] J51968 PAIN IN 03-16-2017 [facility] LEFT ANKLE [facility]ICAL [facility] J2040QE CONTUSION 03-16-2017 [facility] OF LEFT HIP PHYSICIANS, INITIAL PLLC ENCOUNTER G9006VX CONTUSION 03-16-2017 [facility] OF LEFT PHYSICIANS, LOWER LEG PLLC INITIAL ENCOUNTER G6193GH CONTUSION 03-16-2017 [facility] LEFT [facility] [...] 02-02-2017 [facility] IA BILATERAL M5416 RADICULOPAT 01-17-2017 [facility] R768 OTH SPEC 01-17-2017 [facility] ABNORMAL [facility] IMMUNOLOGIC GROUP AL FIND IN SERUM K219 GASTRO-ESOP 01-14-2017 [facility] H REFLUX [facility]YS[facility], DISEASE PLLC WITHOUT ESOPHAGITIS R4702 DYSPHASIA 01-14-2017 [facility] [id number] UNS FB 01-14-2017 [facility] PHARYNX [facility], CAUSING OTH PLLC INJURY INIT ENC Z0000 ENCOUNTER 01-09-2017 [facility] MED EXAM INC W/O ABNORMAL FIND M5116 INTERVERTEB 01-07-2017 [facility] D/O INC W/RADICULOP ATHY LUMB RGN J209 ACUTE 12-28-2016 [facility] UNSPECIFIED INC R0602 SHORTNESS 12-28-2016 [facility] MEDICAL [facility] [id number] SPRAIN 12-10-2016 [facility] CERVICAL PHYSIC[facility]ANS [...] 1 05 PH CE AR TA MA NM CY NO PH #3 EN 93 8 5- 32 5 LI 00 09 09 30 30 00 EA Ac SI 37 -0 -[address] ti NO 82 3- 9- 00 00 SI ve NH 07 20 20 50 DE IL 41 17 17 01 0 95 PH 10 AR MA MG CY TA OF BL CY ET NT HI AN A IN C ES 65 08 09 30 30 00 EA Ac CI 86 -1 -[address] ti TA 20 1- 8- 00 00 SI ve LO 37 20 20 49 DE NH 40 17 17 76 AM 1 51 [...] 5 00 PH CE AR TA MA NM CY NO PH OF EN CY NT [...] 50 1- 5- 00 00 SI ve NH 61 20 20 49 DE IL 01 17 17 63 0 26 PH 10 AR MA MG CY TA OF BL CY ET NT HI AN A IN C BU 00 07 08 60 30 00 EA Ac NH 59 -3 -[address] ti [...] 47 CE 0 84 PH TA AR NM MA NO CY PH EN OF CY 7. NT 5- HI 32 AN 5 A IN C HY 00 07 07 [address] 40 -0 -[address] ti OC 60 5- 8- 00 00 SI ve OD 12 20 20 49 DE ON 40 17 17 34 -A 5 80 PH CE AR TA MA NM CY NO PH OF CY 7. NT 5- HI 32 AN 5 A IN C BU 60 07 07 60 30 00 EA Ac NH 50 -0 -[address] ti [...] 50 1- 8- 00 00 SI ve NH 61 20 20 48 DE IL 01 [...] 5 05 PH CE AR TA MA NM CY NO PH OF CY 7. NT [...] 50 7- 0- 00 00 SI ve NH 61 20 20 48 DE IL 01 17 17 65 0 64 PH 10 AR MA MG CY TA OF BL CY ET NT HI AN A IN C BU 60 05 06 60 30 00 EA Ac NH 50 -1 -[address] ti [...] 5 65 PH CE AR TA MA NM CY NO PH OF CY 7. NT [...] 50 8- 2- 00 00 SI ve NH 61 20 20 48 DE IL 01 [...] 04 05 60 30 00 WA Ac NH 50 -1 -1 .0 00 L- ti [...] 1 89 PH CE AR TA MA NM CY NO PH #3 93 7. 8 5- 32 5 LI 54 04 05 30 30 00 WA Ac SI 45 -1 -0 .0 00 L- ti NO 80 2- 5- 00 07 MA ve NH 99 20 20 48 RT IL 71 [...] 1 04 PH CE AR TA MA NM CY NO PH #5 EN 91 5- 32 5 GA 53 04 04 90 30 00 MI Ac BA 74 -0 -2 .0 00 L- ti PE 60 4- 8- 00 07 MA ve NT 10 20 20 48 RT IN 10 17 17 04 5 51 PH 10 AR 0 MA MG CY CA #5 PS 91 UL E NH 00 04 04 10 5 00 MI Ac ED 14 -0 -2 .0 00 L- ti NI 39 4- 8- 00 07 MA ve SO 73 20 20 48 RT NE 80 17 17 00 5 75 PH 20 AR MA MG CY TA #5 BL 91 ET AM 00 03 04 20 10 00 MI Ac OX 78 -2 -2 .0 00 L- ti -C 11 3- 1- 00 07 MA ve LA 85 20 20 47 RT V 22 17 17 82 87 0 43 PH 5- AR 12 MA 5 CY MG #5 TA 91 BL ET BE 68 03 04 30 10 00 [facility] [place] 38 -2 -2 .0 00 L- [...] AI ZA 75 17 17 38 D NH 0 05 PH IN AR E MA 10 CY MG #3 93 TA 8 BL ET NA 68 03 03 30 15 00 RI Ac NH 46 -0 -3 .0 00 TE ti OX 20 6- 1- 00 01 ve EN 19 20 20 17 AI 00 17 17 38 D 50 1 06 PH 0 AR MG MA CY TA BL #3 ET 93 8 AZ 59 02 03 6. 5 00 MI Ac IT 76 -1 -1 00 00 [...] n SYPHILIS IGG TEST (EIA) (06-10-2014 08:00) Car Top Bolter: Sadie Marquez MD FCAP Lab: [facility] Division of Laboratory Services Lab Address: [address] [place] [address], [address] [place] [address] 06-10-2014 8:00 am Specimen Collection Start Date/Time: R D Manager: Specimen Ming'valdez 06-15-2014 9:29 am Date/Time: Ordering [...] Health Insurance Portability and Accountability Act. CHART [id number] complet NUMBER 014 ed 08:00 SPECIME BLOOD [...] complet N 014 ed SOURCE 08:00 CHART [id number] complet NUMBER 014 ed 08:00 Trepone Pending complet ma 014 ed pallidu 08:00 m IgG Ab [Presen ce] in Serum by Immunoa ssay Procedures Procedure DOS Code Location Performer Comment DRUG TEST 00864 [facility] QUAL DIR INC INC OPTICAL OBS PER DAY THERAPEUT 24640 [facility] IC [facility] PROPHYLAC INC INC TIC/DX INJECTION SUBQ/IM DRUG TEST 25014 [facility] QUAL DIR INC INC OPTICAL OBS PER DAY DRUG TEST 21631 [facility] QUAL DIR INC INC OPTICAL OBS PER DAY RADEX 50716 [facility] SPINE [facility] LUMBOSACR INC INC AL MINIMUM 4 VIEWS RADEX 03640 [facility] SACRUM & [facility] COCCYX INC INC MINIMUM 2 VIEWS RADIOLOGI 39570 [facility] C [facility] EXAMINATI INC INC ON PELVIS 1/2 VIEWS DRUG TEST 77659 [facility] QUAL DIR INC INC OPTICAL OBS PER DAY COMPREHEN 10783 [facility] SIVE [facility] METABOLIC INC INC PANEL URNLS DIP 91391 [facility] STICK/TAB INC INC LET RGNT AUTO W/O MICROSCOP Y FINAL G9638 [facility] REPORTS 7 MEDICAL W/O DOC IMAGING 1/MORE ASS DOSE REDUCTION TECH FINAL G9551 [facility] REPR ABD 7 MEDICAL IMAG STS IMAGING W/O ASS INCIDNT FND LES NTD: THER 75741 [facility] PROPH/DX [facility] NJX EA INC INC SEQL IV PUSH SBST/[place] [address] [facility] & 7 MEDICAL PELVIS IMAGING W/[place] [address] [facility] INFUSION [facility] THERAPY/P INC INC ROPHYLAXI S /DX 1ST TO 1 HR THERAPEUT 44950 [facility] IC [facility] INJECTION INC INC IV PUSH EACH NEW DRUG BLOOD 50723 [facility] COUNT [facility] COMPLETE INC INC AUTO&AUTO DIFRNTL WBC RADEX 30313 [facility] HIPS [facility] BILATERAL INC INC WITH PELVIS 2 VIEWS RADEX 72215 [facility] SACRUM & 7 MEDICAL COCCYX IMAGING MINIMUM 2 ASS VIEWS RADEX 75002 [facility] HIPS 7 MEDICAL BILATERAL IMAGING WITH ASS PELVIS 3-4 VIEWS RADEX 97213 [facility] PANG ANKLE 7 MEDICAL COMPLETE IMAGING MINIMUM 3 ASS VIEWS DRUG TEST G0481 [facility] DEFINITV [address] ID INC INC METH P DAY 8-14 DRUG CL DRUG TEST 55117 [facility] PRSMV [facility] QUAL DIR INC INC OPTICAL OBS PER DAY FINAL G9638 KELSIE PANG REPORTS 7 MEDICAL W/O DOC IMAGING 1/MORE ASS DOSE REDUCTION TECH CT SOFT 89694 K[facility] PANG TISSUE 7 MEDICAL NECK IMAGING W/CONTRAS ASS T MATERIAL BLOOD 89265 [facility] COUNT [facility] COMPLETE INC INC AUTO&AUTO DIFRNTL WBC FINAL RPT G[address]/MRI 7 MEDICAL CHEST/NCK IMAGING /U/S NO ASS THR NOD<1.0 CM BASIC 83720 [facility] METABOLIC [facility] PANEL INC INC CALCIUM TOTAL THERAPEUT 03457 [facility] IC PX 1/> 7 [facility] AREAS INC INC EACH 15 MIN EXERCISES DRUG TEST 66801 [facility] PRSMV [facility] QUAL DIR INC INC OPTICAL OBS PER DAY DRUG 04736 [facility] SCREENING 7 [facility] OPIOIDS INC INC & OPIATE ANALOGS 5/MORE THERAPEUT 50858 [facility] IC PX 1/> 7 [facility] AREAS INC INC EACH 15 MIN EXERCISES OPHTH 40154 [facility] 7 XM&EVAL COMPRE NEW PT 1/> VST THERAPEUT 59186 [facility] IC PX 1/> 7 [facility] AREAS INC INC EACH 15 MIN EXERCISES DRUG 49113 [facility] SCREENING 7 [facility] OPIOIDS INC INC & OPIATE ANALOGS 5/MORE DRUG TEST 54633 [facility] PRSMV [facility] QUAL DIR INC INC OPTICAL OBS PER DAY PHYSICAL 66595 [facility] THERAPY 7 [facility] EVALUATIO INC INC N MOD COMPLEX 30 MINS RADIOLOGI 45785 [facility] C [facility] EXAMINATI [place] [address] [facility] STREPTOCO 7 [facility] CCUS INC INC GROUP A CUL BACT 01573 [facility] XCPT [facility] URINE INC INC BLOOD/[place] [address] [facility] BLOOD/URI 7 [facility] C ACID INC INC BLOOD 00894 [facility] COUNT 7 [facility] COMPLETE INC INC AUTO&AUTO DIFRNTL WBC ANTINUCLE 09365 [facility] AR 7 [facility] ANTIBODIE INC INC S ANITA SEDIMENTA 72719 [facility] TIJOSHUA RATE 7 [facility] RBC INC INC NON-AUTOM ATED C-REACTIV 19218 [facility] E PROTEIN 7 [facility] INC INC COMPREHEN 10210 [facility] SIVE 7 [facility] METABOLIC INC INC PANEL DRUG TEST 41258 [facility] PRSMV 7 [facility] QUAL DIR INC INC OPTICAL OBS PER DAY LIPID 40991 [facility] PANEL 7 [facility] INC INC RHEUMATOI 51058 [facility] D FACTOR [facility] QUANTITAT INC INC JOAN HEMOGLOBI 29077 [facility] N [facility] GLYCOSYLA [place] [address] [facility] FREE 7 [facility] [place] [address] [facility] THYROID 7 [facility] STIMULATI INC INC NG HORMONE TSH URNLS DIP 85618 [facility] STICK/TAB INC INC LET REAGENT AUTO MICROSCOP Y RADIOLOGI 01954 [facility] EXAM 7 MEDICAL CHEST 2 IMAGING VIEWS ASS FRONTAL&L ATERAL IAADIADOO 87380 [facility] STREPTOCO INC INC CCUS GROUP A IAADIADOO 51723 [facility] INFLUENZA INC INC Encounters Encounter Start End Date Code Location Performer Type Date [facility] - 7 7 [facility] OUTPATIEN INC T EMERGENCY 21162 [facility] FERREIRA 7 [address] [facility] T VISIT HIGH/URGE NT SEVERITY HOSPITAL WAN Guzman 7 [facility] OUTPATIEN INC T EMERGENCY 00117 [facility] 7 7 [facility] DEPARTMEN [facility] T VISIT LOW/MODER SEVERITY HOSPITAL WAN - 7 7 [facility] OUTPATIEN INC T HOSPITAL WAN - 7 7 [facility] OUTPATIEN INC T EMERGENCY 01586 MARRY LIVINGSTON 7 7 PHYSICIAN [facility] S [facility] T VISIT HIGH/URGE NT SEVERITY EMERGENCY 97674 W[facility] 7 7 [facility] DEPARTMEN [facility] T VISIT LOW/MODER SEVERITY HOSPITAL WAN - 7 7 [facility] OUTPATIEN INC HOSPITAL WAN - 7 7 [facility] OUTPATIEN INC T EMERGENCY 92728 WAN CORTEST 7 7 [facility] VISIT INC HIGH SEVERITY& THREAT FUN HOSPITAL WAN - 7 7 [facility] OUTPATIEN INC HOSPITAL W[facility] - 7 7 [facility] OUTPATIEN INC T EMERGENCY 93922 Megan YANG 7 [facility] T VISIT HIGH/URGE NT SEVERITY EMERGENCY 46349 [facility] 7 7 [facility] DEPARTMEN INC T VISIT LOW/MODER SEVERITY HOSPITAL WAN - Megan 7 [facility] OUTPATIEN INC T EMERGENCY 07835 MARRY GALINDO 7 7 PHYSICIAN VISIT S, [facility] HIGH SEVERITY& THREAT FUNCJ EMERGENCY 74079 WAN 7 7 [facility] DEPARTMEN [facility] T VISIT LOW/MODER SEVERITY HOSPITAL WAN - 7 7 [facility] OUTPATIEN INC T HOSPITAL WAN - 7 7 [facility] OUTPATIEN INC T HOSPITAL W[facility] - 7 7 [facility] OUTPATIEN INC T HOSPITAL WAN - 7 7 [facility] OUTPATIEN INC T OFFICE 89986 [facility] OUTPATIEN 7 7 PHYSICIAN T VISIT S GROUP 25 MINUTES HOSPITAL WAN - 7 7 [facility] OUTPATIEN INC T EMERGENCY 50567 W[facility] 7 7 [facility] DEPARTMEN [facility] T VISIT LOW/MODER SEVERITY HOSPITAL WAN - 7 7 [facility] OUTPATIEN INC T EMERGENCY 06867 M[facility]Y TEMPLE 7 7 PHYSICIAN U DEPARTMEN S, [facility] T VISIT HIGH/URGE NT SEVERITY HOSPITAL WAN - 7 7 [facility] OUTPATIEN INC T EMERGENCY 81850 W[facility] 7 7 [facility] DEPARTMEN [facility] T VISIT LOW/MODER SEVERITY HOSPITAL WAN - 7 7 [facility] OUTPATIEN [facility] T HOSPITAL WAN - 7 7 [facility] OUTPATIEN [facility] T EMERGENCY 09123 W[facility] 7 7 [facility] DEPARTMEN [facility] T VISIT LOW/MODER SEVERITY EMERGENCY 25867 CHITO CASEY 7 7 EMERGENCY N DEPARTMEN T VISIT PHYSICIAN MODERATE S SEVERITY OFFICE 29017 WAN NAVAS 7 7 MEM [facility] T NEW 10 INC MINUTES HOSPITAL WAN - 7 7 [facility] OUTPATIEN INC T
--- OUTSIDE RECORDS SUMMARY | 2017-07-20 02:23 | External Medical Summary Rpt | CCD ---
Author Author , MARCELLA NARANJO Address Unknown Phone [email or web address] Care Team Providers Care Machine Riveter Name Role Phone PANG, PANG Unavailable Unavailable [facility] Unavailable Unavailable PHYSICIANS, [facility] DEREK REED Unavailable Unavailable JR FITZPATRICK FULLER, Unavailable Unavailable JR MIKI LIVINGSTON Unavailable Unavailable [facility] Un[facility] Unavailable INC, [facility] DOWD, DOWD Unavailable Unavailable DOWD, DOWD Unavailable Unavailable [facility], Unavailable Unavailable [facility] Unavailable Unavailable [facility], [facility], Unavailable Unavailable PLL[facility], [facility] RENUSCH, RENUSCH Unavailable Unavailable [facility], Unavailable Unavailable [facility] SOTINGEANU, Unavailable Unavailable SOTINGEANU Purpose Continuity of Care Document - 11-22-2016 through 2016 Problems Code Diagnosis DOS Provider Status [id number] OTHER LONG 05-18-2017 [facility] CURRENT INC DRUG THERAPY G8929 OTHER 05-11-2017 [facility]RONIC [facility] PAIN [facility] I10 ESSENTIAL 05-11-2017 [facility] HYPERTENSIO INC N M545 LOW BACK 05-11-2017 [facility] PAIN [facility] Z720 TOBACCO USE 05-11-2017 [facility] [id number] PAIN IN 04-06-2017 [facility] 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 [facility] NEC [id number] CONTUSION 04-06-2017 [facility] LOWER BACK PHYSICIANS, & PELVIS PLLC INITIAL ENCOUNTER [id number] STRAIN 04-06-2017 [facility] MUSCLE [facility], FASCIA & PLLC TENDON LOW BACK INITIAL N23 UNSPECIFIED 03-25-2017 [facility] RENAL [facility], COLIC PLLC R1012 LEFT UPPER 03-25-2017 [facility] PAIN INC R109 UNSPECIFIED 03-25-2017 [facility] ABDOMINAL [facility], PAIN PLLC E49097 PAIN IN 03-16-2017 [facility]ICAL SHOULDER [facility] O10777 PAIN IN 03-16-2017 [facility] I26381 PAIN IN 03-16-2017 [facility] ANKLE [facility] M1301NQ CONTUSION 03-16-2017 [facility] OF LEFT HIP PHYSICIANS, INITIAL PLLC ENCOUNTER M0521EF CONTUSION 03-16-2017 [facility] OF LEFT PHYSICIANS, LOWER LEG PLLC INITIAL ENCOUNTER [id number] CONTUSION 03-16-2017 [facility] [...] 02-02-2017 [facility] IA BILATERAL M5416 RADICULOPAT 01-17-2017 [facility] HY LUMBAR [facility] R768 OTH SPEC 01-17-2017 [facility] ABNORMAL PHYSICIANS IMMUNOLOGIC GROUP AL FIND IN SERUM K219 GASTRO-ESOP 01-14-2017 [facility] H REFLUX [facility]YS[facility], DISEASE PLLC WITHOUT ESOPHAGITIS R4702 DYSPHASIA 01-14-2017 [facility] [id number] UNS FB 01-14-2017 [facility] PHARYNX [facility], CAUSING OTH PLLC INJURY INIT ENC Z0000 ENCOUNTER 01-09-2017 [facility] MED EXAM INC W/O ABNORMAL FIND M5116 INTERVERTEB 01-07-2017 [facility] D/O INC W/RADICULOP ATHY LUMB RGN J209 ACUTE 12-28-2016 [facility] UNSPECIFIED INC R0602 SHORTNESS 12-28-2016 [facility] MEDICAL [facility] [id number] SPRAIN 12-10-2016 [facility] CERVICAL PHYSICIANS SPINE INITIAL ENCOUNTR J0100 ACUTE 11-22-2016 [facility] SINUSITIS INC UNSPECIFIED Medications Na ND Rx Da Fi Fi [...] 1 05 PH CE AR TA MA AR CY NO PH #3 EN 93 8 5- 32 5 LI 00 09 09 30 30 00 EA Ac SI 37 -0 -[address] ti NO 82 3- 9- 00 00 SI ve SC 07 20 20 50 DE IL 41 17 17 01 0 95 PH 10 AR MA MG CY TA OF BL CY ET NT HI AN A IN C ES 65 08 09 30 30 00 EA Ac CI 86 -1 -[address] ti TA 20 1- 8- 00 00 SI ve LO 37 20 20 49 DE SC 40 17 17 76 AM 1 51 [...] 5 00 PH CE AR TA MA AR CY NO PH OF EN CY NT [...] 50 1- 5- 00 00 SI ve SC 61 20 20 49 DE IL 01 17 17 63 0 26 PH 10 AR MA MG CY TA OF BL CY ET NT HI AN A IN C BU 00 07 08 60 30 00 EA Ac SC 59 -3 -[address] ti [...] 47 CE 0 84 PH TA AR AR MA NO CY PH EN OF CY 7. NT 5- HI 32 AN 5 A IN C BU 60 07 07 60 30 00 EA Ac SC 50 -0 -[address] ti [...] 50 1- 8- 00 00 SI ve SC 61 20 20 48 DE IL 01 17 17 65 0 64 PH 10 AR MA MG CY TA OF BL CY ET NT HI AN A IN C HY 00 07 07 [address] 40 -0 -[address] ti OC 60 5- 8- 00 00 SI ve OD 12 20 20 49 DE ON 40 17 17 34 -A 5 80 PH CE AR TA MA AR CY NO PH OF CY 7. NT 5- HI 32 AN 5 A IN C OX 13 06 07 [...] HI TA AN B A IN C GA 67 06 06 60 30 00 EA Ac BA 87 -0 -[address] ti PE 70 7- 0- 00 00 SI ve NT 22 20 20 48 DE IN 30 17 17 65 5 63 PH 30 AR 0 MA MG CY CA OF PS CY UL NT E HI AN A IN C LI 00 06 06 30 30 00 EA Ac SI 18 -0 -[address] ti NO 50 7- 0- 00 00 SI ve SC 61 20 20 48 DE IL 01 17 17 65 0 64 PH 10 AR MA MG CY TA OF BL CY ET NT HI AN A IN C CL 06 60 30 00 EA Ac ON [...] 5 05 PH CE AR TA MA AR CY NO PH OF CY 7. NT 5- HI 32 AN 5 A IN C BU 60 05 06 60 30 00 EA Ac SC 50 -1 -[address] ti OP 50 8- 6- 00 00 SI ve IO 15 20 20 48 DE N 80 17 17 65 HC 1 70 PH L AR 75 MA CY MG OF TA CY BL NT ET HI AN A IN C HY 00 02 10 [address] 40 -0 -[address] ti OC 60 8- 2- 00 00 SI ve OD 12 20 20 48 DE ON 40 17 17 65 -A 5 65 PH CE AR TA MA AR CY NO PH OF CY 7. NT 5- HI 32 AN 5 A IN C GA 67 05 06 60 30 00 EA Ac BA [...] 50 8- 2- 00 00 SI ve SC 61 20 20 48 DE IL 01 [...] BU 60 04 05 60 30 00 AL Ac SC 50 -1 -1 .0 00 L- ti OP 50 8- 2- 00 07 MA ve IO 15 20 20 48 RT N 80 17 17 30 HC 1 87 PH L AR 75 MA CY MG #5 TA 91 BL ET CL 16 04 05 60 30 00 AL Ac ON 72 -1 -1 .0 00 L- ti AZ 90 8- 2- 00 04 MA ve EP 13 20 20 53 RT AM 61 17 17 00 6 58 PH 0. AR 5 MA MG CY TA #5 BL 91 ET PA 68 04 05 30 30 00 [facility] NT 64 -0 -0 .0 00 L- [...] 1 89 PH CE AR TA MA AR CY NO PH #3 93 7. 8 5- 32 5 LI 54 04 05 30 30 00 [facility] SI 45 -1 -0 .0 00 L- ti NO 80 2- 5- 00 07 MA ve SC 99 20 20 48 RT IL 71 17 17 20 0 01 PH 10 AR MA MG CY TA #5 BL 91 ET GA 53 04 05 60 30 00 AL Ac BA 74 -1 -0 .0 00 L- ti PE 60 2- 5- 00 07 MA ve NT 10 20 20 48 RT IN 20 17 17 20 5 02 PH 30 AR 0 MA MG CY CA #5 PS 91 UL E PO 62 04 05 51 30 00 AL Ac LY 17 -1 -0 0. 00 L- ti ET 50 2- 5- 00 07 MA ve HY 44 20 20 0 48 RT LE 21 17 17 20 NE 5 03 PH AR GL MA YC CY OL #5 33 91 50 PO WD HY 00 04 04 [address] 40 -0 -2 .0 00 L- ti OC 60 4- 8- 00 02 MA ve OD 12 20 20 23 RT ON 30 17 17 98 -A 1 04 PH CE AR TA MA AR CY NO PH #5 EN 91 5- 32 5 GA 53 04 04 90 30 00 WA Ac BA 74 -0 -2 .0 00 L- ti PE 60 4- 8- 00 07 MA ve NT 10 20 20 48 RT IN 10 17 17 04 5 51 PH 10 AR 0 MA MG CY CA #5 PS 91 UL E SC 00 04 04 10 5 00 WA Ac ED 14 -0 -2 .0 00 L- ti NI 39 4- 8- 00 07 MA ve SO 73 20 20 48 RT NE 80 17 17 00 5 75 PH 20 AR MA MG CY TA #5 BL 91 ET AM 00 03 04 20 10 00 WA Ac OX 78 -2 -2 .0 00 L- ti -C 11 3- 1- 00 07 MA ve LA 85 20 20 47 RT V 22 17 17 82 87 0 43 PH 5- AR 12 MA 5 CY MG #5 TA 91 BL ET BE 68 03 04 30 10 00 AL Ac NZ 38 -2 -2 .0 00 L- [...] AI ZA 75 17 17 38 D SC 0 05 PH IN AR E MA 10 CY MG #3 93 TA 8 BL ET NA 68 03 03 30 15 00 RI Ac SC 46 -0 -3 .0 00 TE ti OX 20 6- 1- 00 01 ve EN 19 20 20 17 AI 00 17 17 38 D 50 1 06 PH 0 AR MG MA CY TA BL #3 ET 93 8 AZ 59 02 03 6. 5 00 AL Ac IT 76 -1 -1 00 00 L- ti HR 23 6- 7- 0 07 MA ve OM 06 20 20 47 RT YC 00 17 17 10 IN 1 53 PH AR 25 MA 0 CY MG #5 TA 91 BL ET Procedures Procedure DOS Code Location Performer Comment DRUG TEST 77581 [facility] QUAL DIR INC INC OPTICAL OBS PER DAY THERAPEUT 41232 [facility] IC [facility] PROPHYLAC INC INC TIC/DX INJECTION SUBQ/IM DRUG TEST 99169 [facility] QUAL DIR INC INC OPTICAL OBS PER DAY DRUG TEST 20014 [facility] QUAL DIR INC INC OPTICAL OBS PER DAY RADIOLOGI 85897 KELSIE PANG C 7 MEDICAL EXAMINATI IMAGING ON PELVIS ASS 1/2 VIEWS RADEX 19448 KELSIE PANG SACRUM & 7 MEDICAL COCCYX IMAGING MINIMUM 2 ASS VIEWS RADEX 56721 KELSIE PANG SPINE 7 MEDICAL LUMBOSACR IMAGING AL ASS MINIMUM 4 VIEWS DRUG TEST 81030 [facility] QUAL DIR INC INC OPTICAL OBS PER DAY COMPREHEN 95184 [facility] SIVE [facility] METABOLIC INC INC PANEL FINAL G9638 KELSIE BURDICKUTCHER REPORTS 7 MEDICAL W/O DOC IMAGING 1/[place] [address] [facility]FUSION [facility] THERAPY/P INC INC ROPHYLAXI S /DX 1ST TO 1 HR THERAPEUT 94583 [facility] IC [facility] INJECTION INC INC IV PUSH EACH NEW DRUG FINAL G9551 KELSIE DEREK REPR ABD 7 MEDICAL IMAG STS IMAGING W/O ASS INCIDNT FND LES NTD: BLOOD 72546 [facility] COUNT [facility] COMPLETE INC INC AUTO&AUTO DIFRNTL WBC URNLS DIP 78651 [facility] STICK/TAB INC INC LET RGNT AUTO W/O MICROSCOP Y THER 51309 [facility] PROPH/DX [facility] NJX EA INC INC SEQL IV PUSH SBST/[place] [address] [facility] ABDOMEN & 7 [facility] PELVIS INC INC W/O CONTRAST MATERIAL RADEX 42128 [facility] HIPS 7 [facility] BILATERAL INC INC WITH PELVIS 2 VIEWS RADEX 35306 KELSIE PANG HIPS 7 MEDICAL BILATERAL IMAGING WITH ASS PELVIS 3-4 VIEWS RADEX 30168 KELSIE PANG ANKLE 7 MEDICAL COMPLETE IMAGING MINIMUM 3 ASS VIEWS RADEX 77586 KELSIE PANG SACRUM & 7 MEDICAL COCCYX IMAGING MINIMUM 2 ASS VIEWS DRUG TEST 92886 [facility]AN [facility] PRSMV 7 [facility] QUAL DIR INC INC OPTICAL OBS PER DAY DRUG TEST G0481 [facility] DEFINITV [address] ID INC INC METH P DAY 8-14 DRUG CL BLOOD 62705 WANJOSHUA LADDON COUNT 7 [facility] COMPLETE INC INC AUTO&AUTO DIFRNTL WBC FINAL G9638 KELSIE PANG REPORTS 7 MEDICAL W/O DOC IMAGING 1/MORE ASS DOSE REDUCTION TECH CT SOFT 24860 [facility] TISSUE [facility] NECK INC INC W/CONTRAS T MATERIAL BASIC 19046 [facility] METABOLIC 7 [facility] PANEL INC INC CALCIUM TOTAL FINAL RPT G[address]/MRI 7 MEDICAL CHEST/NCK IMAGING /U/S NO ASS THR NOD<1.0 CM DRUG 38203 [facility] SCREENING 7 [facility] OPIOIDS INC INC & OPIATE ANALOGS 5/MORE THERAPEUT 68793 [facility] IC PX 1/> 7 [facility] AREAS INC INC EACH 15 MIN EXERCISES DRUG TEST 33188 [facility] PRSMV 7 [facility] QUAL DIR INC INC OPTICAL OBS PER DAY THERAPEUT 56621 [facility] IC PX 1/> 7 [facility] AREAS INC INC EACH 15 MIN EXERCISES OPHTH 35576 [facility] 7 XM&EVAL COMPRE NEW PT 1/> VST THERAPEUT 31377 [facility] IC PX 1/> 7 [facility] AREAS INC INC EACH 15 MIN EXERCISES DRUG 86395 [facility] SCREENING 7 [facility] OPIOIDS INC INC & OPIATE ANALOGS 5/MORE DRUG TEST 56963 [facility] PRSMV [facility] QUAL DIR INC INC OPTICAL OBS PER DAY PHYSICAL 22222 [facility] THERAPY [facility] EVALUATIO INC INC N MOD COMPLEX [address] [place] [address] [facility] STREPTOCO 7 [facility] CCUS INC INC GROUP A RADIOLOGI 32953 [facility] C [facility] EXAMINATI INC INC ON NECK SOFT TISSUE CUL BACT 29561 [facility] XCPT [facility] URINE INC INC BLOOD/[place] [address] [facility] BLOOD/URI 7 [facility] C ACID INC INC ANTINUCLE 47509 [facility] AR [facility] ANTIBODIE INC INC S ANITA SEDIMENTA 34401 [facility] TIJOSHUA RATE 7 [facility] RBC INC INC NON-AUTOM ATED HEMOGLOBI 73000 [facility] N 7 [facility] GLYCOSYLA INC INC MONSERRAT A1C BLOOD 58454 [facility] COUNT 7 [facility] COMPLETE INC INC AUTO&AUTO DIFRNTL WBC RHEUMATOI 78540 AWN Varela FACTOR 7 [facility] QUANTITAT INC INC JOAN C-REACTIV 91463 [facility] E PROTEIN 7 [facility] INC INC LIPID 15221 [facility] PANEL 7 [facility] INC INC DRUG TEST 31378 [facility] PRSMV 7 [facility] QUAL DIR [place] [address] [facility] FREE 7 [facility] [place] [address] [facility] THYROID 7 [facility] STIMULATI INC INC NG HORMONE TSH COMPREHEN 77692 [facility] SIVE 7 [facility] METABOLIC INC INC PANEL URNLS DIP 30156 [facility] STICK/TAB INC INC LET REAGENT AUTO MICROSCOP Y RADIOLOGI 60578 [facility] C EXAM 7 MEDICAL CHEST 2 IMAGING VIEWS ASS FRONTAL&L ATERAL IAADIADOO 26776 [facility] 7 [facility] STREPTOCO INC INC CCUS GROUP A IAADIADOO 77394 [facility] 7 [facility] INFLUENZA INC INC Encounters Encounter Start End Date Code Location Performer Type Date HOSPITAL [facility] INC T EMERGENCY 98578 [facility] 7 7 [facility] DEPARTMEN INC T VISIT LOW/MODER SEVERITY HOSPITAL [facility] 7 [facility] T EMERGENCY 73150 [facility] FERREIRA 7 7 PHYSICIAN ZOFIA [facility] T VISIT HIGH/URGE NT SEVERITY HOSPITAL [facility] 7 [facility] T HOSPITAL WAN Guz[facility] 7 [facility]PAT[facility] INC T EMERGENCY 40277 W[facility] 7 7 [facility] DEPARTMEN INC T VISIT LOW/MODER SEVERITY HOSPITAL W[facility] 7 [facility] OUTPATIEN INC T EMERGENCY 05657 M[facility] LIVINGSTON 7 7 PHYSICIAN ZOFIA Penaloza [facility] T VISIT HIGH/URGE NT SEVERITY HOSPITAL [facility] 7 [facility] HOSPITAL W[facility] 7 [facility] T EMERGENCY 56790 W[facility] GALINDO 7 7 [facility] VISIT INC HIGH SEVERITY& THREAT [facility] WAN Guzman 7 [facility] OUTPATI[facility] INC T EMERGENCY 66317 Megan YANG 7 PHYSICIAN JR ZOFAI Penaloza [facility] T VISIT HIGH/URGE NT SEVERITY EMERGENCY 20104 [facility] 7 7 [facility] DEPARTMEN INC T VISIT LOW/MODER SEVERITY HOSPITAL W[facility] Guzman 7 [facility] T HOSPITAL W[facility] Guzman 7 [facility] OUTPATIEN INC T EMERGENCY 56384 [facility] 7 7 [facility] DEPARTMEN INC T VISIT LOW/MODER SEVERITY EMERGENCY 74429 [facility] FERREIRA DEPT 7 7 PHYSICIAN VISIT S, [facility] HIGH SEVERITY& [facility] - 7 7 [facility]PATIEN [facility] AWN - 7 7 [facility]IEN [facility] WAN - 7 7 [facility] OUTPATIEN [facility] OFF[facility] 81681 [facility] OUTPATIEN 7 7 PHYSICIAN T VISIT S GROUP 25 MINUTES HOSPITAL WAN - 7 7 [facility] OUTPATIEN [facility] EMERGENCY 03106 [facility] TEMPLE 7 [facility] T VISIT HIGH/URGE NT SEVERITY HOSPITAL [facility] - 7 [facility] EM[facility]GENC[facility] 72728 [facility] 7 [facility] T VISIT LOW/MODER SEVERITY HOSPITAL WAN - 7 7 [facility] OUTPATIEN [facility] WAN - 7 7 [facility] OUTPATIEN [facility] EMERGENCY 07399 W[facility] 7 7 [facility] T VISIT LOW/MODER SEVERITY EMERGENCY 85003 WAN 7 7 [facility] T VISIT LOW/MODER SEVERITY HOSPITAL WAN - 7 7 [facility] OUTPATIEN [facility] EMERGENC[facility] 59921 [facility] RICHARDSO 7 7 EMERGENCY N DEPARTMEN T VISIT PHYSICIAN MODERATE S SEVERITY OFFICE 32520 WAN NAVAS 7 7 [facility] T NEW 10 INC MINUTES HOSPITAL WAN - 7 7 [facility]
--- OUTSIDE RECORDS SUMMARY | 2017-07-20 02:23 | External Medical Summary Rpt | CCD ---
Author Author , MARCELLA NARANJO Address Unknown Phone .iRewind Care Team Providers Care Networker Name Role Phone PANG, PANG Unavailable Unavailable [facility] Unavailable Unavailable PHYSICIANS, [facility] DEREK REED Unavailable Unavailable JR FITZPATRICK FULLER, Unavailable Unavailable JR MIKI LIVINGSTON Unavailable Unavailable [facility] Un[facility] Un[facility], [facility] DOWD, DOWD Unavailable Unavailable D[facility], DOWD Unavailable Unavailable [facility], Unavailable Unavailable [facility] Unavailable Unavailable [facility], [facility], Unavailable Unavailable PLL[facility], [facility] RENUSCH, RENUSCH Unavailable Unavailable [facility], Unavailable Unavailable [facility] SOTINGEANU, Unavailable Unavailable SOTINGEANU Purpose Continuity of Care Document - 11-22-2016 through 2016 Problems Code Diagnosis DOS Provider Status [id number] OTHER LONG 05-18-2017 [facility] CURRENT INC DRUG THERAPY G8929 OTHER 05-11-2017 [facility]RONIC [facility] PAIN [facility] I10 ESSENTIAL 05-11-2017 [facility] HYPERTENSIO INC N M545 LOW BACK 05-11-2017 [facility] PAIN [facility] Z720 TOBACCO USE 05-11-2017 [facility] N90324 PAIN IN 04-06-2017 [facility] 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 04-06-2017 [facility] EAL [facility] DISORDERS [facility] NEC C659SHO CONTUSION 04-06-2017 [facility] LOWER BACK PHYSICIANS, & PELVIS PLLC INITIAL ENCOUNTER [id number] STRAIN 04-06-2017 [facility] MUSCLE [facility] FASCIA & PLLC TENDON LOW BACK INITIAL N23 UNSPECIFIED 03-25-2017 [facility] RENAL [facility], COLIC PLLC R1012 LEFT UPPER 03-25-2017 [facility] PAIN INC R109 UNSPECIFIED 03-25-2017 [facility] ABDOMINAL [facility], PAIN PLLC W43551 PAIN IN 03-16-2017 [place] LEFT MEDICAL SHOULDER [facility] S17244 PAIN IN 03-16-2017 [place] LEFT [facility]IP [facility] K82454 PAIN IN 03-16-2017 [place] LEFT ANKLE [facility]ICAL [facility] T1891ZH CONTUSION 03-16-2017 [facility] OF LEFT HIP PHYSICIANS, INITIAL PLLC ENCOUNTER I7120UM CONTUSION 03-16-2017 [facility] OF LEFT PHYSICIANS, LOWER LEG PLLC INITIAL ENCOUNTER M1654QO CONTUSION 03-16-2017 [facility] [...] 02-02-2017 [facility] IA BILATERAL M5416 RADICULOPAT 01-17-2017 [facility] HY LUMBAR PHYS[facility]ANS [facility] GROUP R768 OTH SPEC 01-17-2017 [facility] ABNORMAL PHYSICIANS IMMUNOLOGIC GROUP AL FIND IN SERUM K219 GASTRO-ESOP 01-14-2017 [facility] H REFLUX [facility], DISEASE PLLC WITHOUT ESOPHAGITIS R4702 DYSPHASIA 01-14-2017 [facility] [id number] UNS FB 01-14-2017 [facility] PHARYNX [facility], CAUSING OTH PLLC INJURY INIT ENC Z0000 ENCOUNTER 01-09-2017 [facility] MED EXAM INC W/O ABNORMAL FIND M5116 INTERVERTEB 01-07-2017 [facility] D/O INC W/RADICULOP ATHY LUMB RGN J209 ACUTE 12-28-2016 [facility] UNSPECIFIED INC R0602 SHORTNESS 12-28-2016 [facility] [id number] SPRAIN 12-10-2016 [facility] CERVICAL [facility]YSIC[facility]ANS [...] 1 05 PH CE AR TA MA AK CY NO PH #3 EN 93 8 5- 32 5 LI 00 09 09 30 30 00 EA Ac SI 37 -0 -[address] ti NO 82 3- 9- 00 00 SI ve MI 07 20 20 50 DE IL 41 17 17 01 0 95 PH 10 AR MA MG CY TA OF BL CY ET NT HI AN A IN C ES 65 08 09 30 30 00 EA Ac CI 86 -1 -[address] ti TA 20 1- 8- 00 00 SI ve LO 37 20 20 49 DE MI 40 17 17 76 AM 1 51 [...] 5 00 PH CE AR TA MA AK CY NO PH OF EN CY NT [...] 50 1- 5- 00 00 SI ve MI 61 20 20 49 DE IL 01 17 17 63 0 26 PH 10 AR MA MG CY TA OF BL CY ET NT HI AN A IN C BU 00 07 08 60 30 00 EA Ac MI 59 -3 -[address] ti [...] 47 CE 0 84 PH TA AR AK MA NO CY PH EN OF CY 7. NT 5- HI 32 AN 5 A IN C BU 60 07 07 60 30 00 EA Ac MI 50 -0 -[address] ti [...] 50 1- 8- 00 00 SI ve MI 61 20 20 48 DE IL 01 [...] 5 80 PH CE AR TA MA AK CY NO PH OF CY 7. NT [...] 50 7- 0- 00 00 SI ve MI 61 20 20 48 DE IL 01 [...] 5 05 PH CE AR TA MA AK CY NO PH OF CY 7. NT 5- HI 32 AN 5 A IN C BU 60 05 06 60 30 00 EA Ac MI 50 -1 -[address] ti [...] 5 65 PH CE AR TA MA AK CY NO PH OF CY 7. NT [...] 50 8- 2- 00 00 SI ve MI 61 20 20 48 DE IL 01 [...] BU 60 04 05 60 30 00 SC Ac MI 50 -1 -1 .0 00 L- ti OP 50 8- 2- 00 07 MA ve IO 15 20 20 48 RT N 80 17 17 30 HC 1 87 PH L AR 75 MA CY MG #5 TA 91 BL ET CL 16 04 05 60 30 00 SC Ac ON 72 -1 -1 .0 00 L- ti AZ 90 8- 2- 00 04 MA ve EP 13 20 20 53 RT AM 61 17 17 00 6 58 PH 0. AR 5 MA MG CY TA #5 BL 91 ET PA 68 04 05 30 30 00 [facility] NT 64 -0 -0 .0 00 L- [...] 1 89 PH CE AR TA MA AK CY NO PH #3 93 7. 8 5- 32 5 LI 54 04 05 30 30 00 [facility] SI 45 -1 -0 .0 00 L- ti NO 80 2- 5- 00 07 MA ve MI 99 20 20 48 RT IL 71 17 17 20 0 01 PH 10 AR MA MG CY TA #5 BL 91 ET GA 53 04 05 60 30 00 SC Ac BA 74 -1 -0 .0 00 L- ti PE 60 2- 5- 00 07 MA ve NT 10 20 20 48 RT IN 20 17 17 20 5 02 PH 30 AR 0 MA MG CY CA #5 PS 91 UL E PO 62 04 05 51 30 00 SC Ac LY 17 -1 -0 0. 00 L- ti ET 50 2- 5- 00 07 MA ve HY 44 20 20 0 48 RT LE 21 17 17 20 NE 5 03 PH AR GL MA YC CY OL #5 33 91 50 PO WD HY 00 04 04 [address] 40 -0 -2 .0 00 L- ti OC 60 4- 8- 00 02 MA ve OD 12 20 20 23 RT ON 30 17 17 98 -A 1 04 PH CE AR TA MA AK CY NO PH #5 EN 91 5- 32 5 GA 53 04 04 90 30 00 WA Ac BA 74 -0 -2 .0 00 L- ti PE 60 4- 8- 00 07 MA ve NT 10 20 20 48 RT IN 10 17 17 04 5 51 PH 10 AR 0 MA MG CY CA #5 PS 91 UL E MI 00 04 04 10 5 00 WA [...] BE 68 03 04 30 10 00 SC Ac NZ 38 -2 -2 .0 00 [...] AI ZA 75 17 17 38 D MI 0 05 PH IN AR E MA 10 CY MG #3 93 TA 8 BL ET NA 68 03 03 30 15 00 RI Ac MI 46 -0 -3 .0 00 TE ti OX 20 6- 1- 00 01 ve EN 19 20 20 17 AI 00 17 17 38 D 50 1 06 PH 0 AR MG MA CY TA BL #3 ET 93 8 AZ 59 02 03 6. 5 00 SC Ac IT 76 -1 -1 00 00 L- ti HR 23 6- 7- 0 07 MA ve OM 06 20 20 47 RT YC 00 17 17 10 IN 1 53 PH AR 25 MA 0 CY MG #5 TA 91 BL ET Procedures Procedure DOS Code Location Performer Comment DRUG TEST 17209 [facility] QUAL DIR INC INC OPTICAL OBS PER DAY THERAPEUT 57015 [facility] IC [facility] PROPHYLAC INC INC TIC/DX INJECTION SUBQ/IM DRUG TEST 04456 [facility] QUAL DIR INC INC OPTICAL OBS PER DAY DRUG TEST 04935 [facility] QUAL DIR INC INC OPTICAL OBS PER DAY RADIOLOGI 36295 KELSIE PANG C 7 MEDICAL EXAMINATI IMAGING ON PELVIS ASS 1/2 VIEWS RADEX 32778 KELSIE PANG SACRUM & 7 MEDICAL COCCYX IMAGING MINIMUM 2 ASS VIEWS RADEX 82842 KELSIE PANG SPINE 7 MEDICAL LUMBOSACR IMAGING AL ASS MINIMUM 4 VIEWS DRUG TEST 11371 [facility] PR[facility]V [facility] QUAL DIR INC INC OPTICAL OBS PER DAY COMPREHEN 62900 [facility] SIVE [facility] METABOLIC INC INC PANEL FINAL G9638 KELSIE BURDICKUTCHER REPORTS 7 MEDICAL W/O DOC IMAGING 1/[place] [address] [facility]FUSION [facility] THERAPY/P INC INC ROPHYLAXI S /DX 1ST TO 1 HR THERAPEUT 21607 [facility] IC [facility] INJECTION INC INC IV PUSH EACH NEW DRUG FINAL G9551 KELSIE DEREK REPR ABD 7 MEDICAL IMAG STS IMAGING W/O ASS INCIDNT FND LES NTD: BLOOD 51345 [facility] COUNT [facility] COMPLETE INC INC AUTO&AUTO DIFRNTL WBC URNLS DIP 26021 [facility] STICK/TAB INC INC LET RGNT AUTO W/O MICROSCOP Y THER 97901 [facility] PROPH/DX 7 [facility] NJX EA INC INC SEQL [place]ST[place] [address] [facility] ABDOMEN & 7 [facility] PELVIS INC INC W/O CONTRAST MATERIAL RADEX 81891 [facility] HIPS 7 [facility] BILATERAL INC INC WITH PELVIS 2 VIEWS RADEX 74652 KELSIE PANG HIPS 7 MEDICAL BILATERAL IMAGING WITH ASS PELVIS 3-4 VIEWS RADEX 64296 KELSIE PANG ANKLE 7 MEDICAL COMPLETE IMAGING MINIMUM 3 ASS VIEWS RADEX 50398 KELSIE PANG SACRUM & 7 MEDICAL COCCYX IMAGING MINIMUM 2 ASS VIEWS DRUG TEST 02977 [facility] PRSMV [facility] QUAL DIR INC INC OPTICAL OBS PER DAY DRUG TEST G0481 [facility] DEFINITV [address] ID INC INC METH P DAY 8-14 DRUG CL BLOOD 29510 WANJOSHUA LADDON COUNT 7 [facility] COMPLETE INC INC AUTO&AUTO DIFRNTL WBC FINAL G9638 KELSIE PANG REPORTS 7 MEDICAL W/O DOC IMAGING 1/MORE ASS DOSE REDUCTION TECH CT SOFT 96587 [facility] TISSUE [facility] NECK INC INC W/CONTRAS T MATERIAL BASIC 72065 [facility] METABOLIC 7 [facility] PANEL INC INC CALCIUM TOTAL FINAL RPT G[address]/MRI 7 MEDICAL CHEST/NCK IMAGING /U/S NO ASS THR NOD<1.0 CM DRUG 18674 [facility] SCREENING 7 [facility] OPIOIDS INC INC & OPIATE ANALOGS 5/MORE THERAPEUT 00294 [facility] IC PX 1/> 7 [facility] AREAS INC INC EACH 15 MIN EXERCISES DRUG TEST 20382 [facility] PRSMV 7 [facility] QUAL DIR INC INC OPTICAL OBS PER DAY THERAPEUT 52431 [facility] IC PX 1/> 7 [facility] AREAS INC INC EACH 15 MIN EXERCISES OPHTH 50786 [facility] 7 XM&EVAL COMPRE NEW PT 1/> VST THERAPEUT 45939 [facility] IC PX 1/> 7 [facility] AREAS INC INC EACH 15 MIN EXERCISES DRUG 24171 [facility] SCREENING 7 [facility] OPIOIDS INC INC & OPIATE ANALOGS 5/MORE DRUG TEST 65095 [facility] PRSMV 7 [facility] QUAL DIR INC INC OPTICAL OBS PER DAY PHYSICAL 54298 [facility] THERAPY 7 [facility] EVALUATIO INC INC N MOD COMPLEX [address] [place] [address] [facility] STREPTOCO 7 [facility] CCUS INC INC GROUP A RADIOLOGI 48463 [facility] C [facility] EXAMINATI INC INC ON NECK SOFT TISSUE CUL BACT 41782 [facility] XCPT 7 [facility] URINE INC INC BLOOD/[place] [address] [facility] BLOOD/URI 7 [facility] C ACID INC INC ANTINUCLE 52347 [facility] AR 7 [facility] ANTIBODIE INC INC S ANITA SEDIMENTA 76038 [facility] TIJOSHUA RATE 7 [facility] RBC INC INC NON-AUTOM ATED HEMOGLOBI 00491 [facility] N 7 [facility] GLYCOSYLA INC INC MONSERRAT A1C BLOOD 68593 [facility] COUNT 7 [facility] COMPLETE INC INC AUTO&AUTO DIFRNTL WBC RHEUMATOI 16560 [facility] Varela FACTOR [facility] QUANTITAT INC INC JOAN C-REACTIV 96327 [facility] E PROTEIN 7 [facility] INC INC LIPID 07365 [facility] PANEL 7 [facility] INC INC DRUG TEST 64151 [facility] PRSMV [facility] QUAL DIR [place] [address] [facility] FREE 7 [facility] [place] [address] [facility] THYROID 7 [facility] STIMULATI INC INC NG HORMONE TSH COMPREHEN 53248 [facility] SIVE 7 [facility] METABOLIC INC INC PANEL URNLS DIP 52650 [facility] STICK/TAB INC INC LET REAGENT AUTO MICROSCOP Y RADIOLOGI 12972 [facility] C EXAM 7 MEDICAL CHEST 2 IMAGING VIEWS ASS FRONTAL&L ATERAL IAADIADOO 66714 [facility] 7 [facility] STREPTOCO INC INC CCUS GROUP A IAADIADOO 68242 [facility] 7 [facility] INFLUENZA INC INC Encounters Encounter Start End Date Code Location Performer Type Date HOSPITAL WNA Guzman 7 [facility] OUTPATIEN INC T EMERGENCY 15790 WAN 7 7 [facility] DEPARTMEN INC T VISIT LOW/MODER SEVERITY HOSPITAL WAN Guzman 7 [facility] OUTPATIEN INC T EMERGENCY 86974 [facility] FERREIRA 7 7 PHYSICIAN ZOFIA S [facility] T VISIT HIGH/URGE NT SEVERITY HOSPITAL WAN Guzman 7 [facility] OUTPATIEN INC T HOSPITAL WAN Guzman 7 [facility] OUTPATIEN INC T EMERGENCY 61686 WAN 7 7 [facility] DEPARTMEN INC T VISIT LOW/MODER SEVERITY HOSPITAL WAN Guzman 7 [facility] OUTPATIEN INC T EMERGENCY 31403 MARRY LIVINGSTON 7 7 PHYSICIAN ZOFIA Penaloza [facility] T VISIT HIGH/URGE NT SEVERITY HOSPITAL AWN Guzman 7 [facility] OUTPATIEN INC HOSPITAL WAN Guzman 7 [facility] OUTPATIEN INC T EMERGENCY 80471 WAN GALINDO 7 7 [facility] VISIT INC HIGH SEVERITY& THREAT [facility] WAN Guzman 7 [facility] OUTPATIEN INC T EMERGENCY 91320 Megan YANG 7 PHYSICIAN JR ZOFIA Penaloza [facility] T VISIT HIGH/URGE NT SEVERITY EMERGENCY 31633 WAN 7 7 [facility] DEPARTMEN INC T VISIT LOW/MODER SEVERITY HOSPITAL WAN Guzman 7 [facility] OUTPATIEN INC T HOSPITAL WAN Guzman 7 [facility] OUTPATIEN INC T EMERGENCY 01084 WAN 7 7 [facility] DEPARTMEN INC T VISIT LOW/MODER SEVERITY EMERGENCY 49526 M[facility]Y FERREIRA DEPT 7 7 PHYSICIAN VISIT S, [facility] HIGH SEVERITY& THREAT [facility] - 7 7 [facility] - 7 7 [facility] WAN - 7 7 [facility]PAT[facility]EN [facility] OFFICE 76829 [facility] OUTPATIEN 7 7 PHYSICIAN T VISIT S GROUP 25 MINUTES HOSPITAL WAN - 7 7 [facility] OUTPATIEN [facility] EMERGENCY 51631 MARRY TEMPLE 7 7 [facility], [facility] T VISIT HIGH/URGE NT SEVERITY HOSPITAL [facility] EM[facility]GENCY 75512 WAN 7 7 MEM H[facility] T VISIT LOW/MODER SEVERITY HOSPITAL WAN - 7 7 [facility] OUTPAT[facility]EN [facility] WAN - 7 7 [facility]PAT[facility]EN [facility]GENCY 48905 WAN 7 7 [facility] T VISIT LOW/MODER SEVERITY EMERGENCY 75463 WAN 7 7 MEM H[facility] T VISIT LOW/MODER SEVERITY HOSPITAL WAN - 7 7 [facility] OUTPATIEN [facility] EMERGENCY 31547 [facility] 7 7 EMERGENCY N DEPARTMEN T VISIT PHYSICIAN MODERATE S SEVERITY OFFICE 87246 WAN NAVAS 7 7 MEM HOS[facility] T NEW 10 INC MINUTES HOSPITAL W[facility] - 7 7 [facility]
--- OUTSIDE RECORDS SUMMARY | 2017-07-20 02:24 | External Medical Summary Rpt | CCD ---
Demographics Preferred Language Puerto Rican Marital Status Unknown Islam Affiliation Unknown Race Unknown Ethnic Group Unknown Author Author , MARCELLA NARANJO Address Unknown Phone Immunization No patient found.
--- OUTSIDE RECORDS SUMMARY | 2017-07-20 02:24 | External Medical Summary Rpt | CCD ---
Demographics Preferred Language Cuban Marital Status Unknown Samaritan Affiliation Unknown Race Unknown Ethnic Group Unknown Author Author , MARCELLA NARANJO Address Unknown Phone Immunization No patient found.
--- OUTSIDE RECORDS SUMMARY | 2017-07-20 02:26 | External Medical Summary Rpt ---
Author Author MARCELLA Abiola, [employer] Organization [employer] Address Unknown Phone Unavailable Results Comprehensive metabolic 2000 panel in Serum or Plasma Observa Value Referen Units Interpr Notes Date tion ce etation Range Albumin/G 1.1 - 1.8 No Normal No Sep 16 lobulin informati informati 2017 7:30 [Mass on in on in PM ratio] in source source Serum or data data Plasma Albumin 3.4 - 5.0 gm/dL Normal No Sep 16 [Mass/vol informati 2017 7:30 ume] in on in PM Serum or source Plasma data Alkaline 46 - 116 U/L Normal No Sep 16 phosphata informati 2017 7:30 se on in PM [Enzymati source c data activity/ volume] in Serum or Plasma Bilirubin 0.2 - 1.0 mg/dL Normal No Sep 16 .total informati 2017 7:30 [Mass/vol on in PM ume] in source Serum or data Plasma Urea 7 - 18 mg/dL Normal No Sep 16 nitrogen informati 2017 7:30 [Mass/vol on in PM ume] in source Serum or data Plasma Calcium 8.5 - mg/dL Normal No Sep 16 [Mass/vol 10.1 informati 2017 7:30 ume] in on in PM Serum or source Plasma data Chloride 98 - 107 mmoL/L Normal No Sep 16 [Moles/vo informati 2017 7:30 lume] in on in PM Serum or source Plasma data Carbon 21.0 - mmoL/L Normal No Sep 16 dioxide, 32.0 informati 2017 7:30 total on in PM [Moles/vo source lume] in data Serum or Plasma Creatinin 0.70 - mg/dL Normal No Sep 16 e 1.30 informati 2017 7:30 [Mass/vol on in PM ume] in source Serum or data Plasma Creatinin 50 - 200 ML/MIN High No Sep 16 e renal informati 2017 7:30 clearance on in PM source predicted data by Cockcroft -Gault formula Estimated >60 ML/MIN No REFERENCE Sep 16 informati RANGE: 2017 7:30 glomerula on in >60 PM r source ML/MIN/1. filtratio data 73 SQUARE n rate METERSIf (GF this patient is -A merican, then multiply theresult by 1.210. Globulin 1.3 - 3.2 gm/dL High No Sep 16 [Mass/vol informati 2017 7:30 ume] in on in PM Serum source data Glucose 74 - 106 mg/dL Normal No Sep 16 [Mass/vol informati 2017 7:30 ume] in on in PM Serum or source Plasma data Potassium 3.5 - 5.1 mmoL/L Normal No Sep 16 informati 2017 7:30 [Moles/vo on in PM lume] in source Serum or data Plasma Sodium 136 - 145 mmoL/L Normal No Sep 16 [Moles/vo informati 2017 7:30 lume] in on in PM Serum or source Plasma data Aspartate 15 - 37 U/L Normal No Sep 16 informati 2016 7:30 aminotran on in PM sferase source [Enzymati data c activity/ volume] in Serum or Plasma Alanine 12 - 78 U/L Normal No Sep 16 aminotran informati 2017 7:30 sferase on in PM [Enzymati source c data activity/ volume] in Serum or Plasma Protein 6.4 - 8.2 gm/dL Normal No Sep 16 [Mass/vol informati 2017 7:30 ume] in on in PM Serum or source Plasma data CBC W Auto Differential panel in Blood Observa Value Referen Units Interpr Notes Date tion ce etation Range Granulocy 1.3 - 8.0 K/mm3 Normal No Sep 16 jose ramon informati 2017 7:30 [#/volume on in PM ] in source Blood by data Automated count Granulocy 37.0 - % Normal No Sep 16 jose ramon/100 80.0 informati 2017 7:30 leukocyte on in PM s in source Blood by data Automated count Hematocri 42.0 - % Normal No Sep 16 t [Volume 52.0 informati 2017 7:30 on in PM Fraction] source of Blood data Hemoglobi 14.1 - g/dL Normal No Sep 16 n 18.0 informati 2017 7:30 [Mass/vol on in PM ume] in source Blood data Lymphocyt 0.7 - 4.5 K/mm3 Normal No Sep 16 es informati 2017 7:30 [#/volume on in PM ] in source Unspecifi data ed specimen by Automated count Lymphocyt 10 - 50 % Normal No Sep 16 es informati 2016 7:30 [#/volume on in PM ] in source Unspecifi data ed specimen by Automated count Erythrocy 27 - 31.2 pg Normal No Sep 16 te mean informati 2016 7:30 corpuscul on in PM ar source hemoglobi data n [Entitic mass] Erythrocy 31.8 - g/dl Normal No Sep 16 te mean 35.4 informati 2016 7:30 corpuscul on in PM ar source hemoglobi data n concentra tion [Mass/vol ume] by Automated count Erythrocy 82.2 - fL Normal No Sep 16 te mean 97.8 informati 2016 7:30 corpuscul on in PM ar volume source [Entitic data volume] by Automated count Monocytes 0.1 - 1.0 K/mm3 Normal No Sep 16 informati 2016 7:30 [#/volume on in PM ] in source Blood by data Automated count Monocytes 1.7 - 9.3 % Normal No Sep 16 /100 informati 2017 7:30 leukocyte on in PM s in source Blood by data Automated count Platelets 142 - 424 K/mm3 Normal No Sep 16 informati 2017 7:30 [#/volume on in PM ] in source Blood data Erythrocy 4.6 - 6.2 M/mm3 Normal No Sep 16 jose ramon informati 2017 7:30 [#/volume on in PM ] in source Amniotic data fluid Erythrocy 11.5 - % Normal No Sep 16 te 17.5 informati 2016 7:30 distribut on in PM ion width source [Entitic data volume] by Automated count Leukocyte 4.8 - K/mm3 Normal No Sep 16 s 10.8 informati 2016 7:30 [#/volume on in PM ] in source Blood data Barbiturates [Mass/volume] in Urine by Screen method Observa Value Referen Units Interpr Notes Date tion ce etation Range Barbitura <200 ng/mL No TEST May 18 jose ramon informati 2016 9:38 [Mass/vol on in AM ume] in source Urine by data Screen RESULTBAR method BITURATE CONFIRMAT ION, URBARBITU RATES POSITIVEA MOBARBITA L NEGATIVES ECOBARBIT AL NEGATIVEB UTALBITAL NEGATIVEP ENTOBARBI LEANNE NEGATIVEP HENOBARBI LEANNE POSITIVEP HENOBARBI LEANNE GC/MS CONF 364 ng/mL CUTOFF=20 0Performi ng site:[facility] [id number] [facility], [place] [address] 3Dir: Guevara Pacheco MDFor inquiries , the physician may contactBr anch: Lab: Drugs identified in Urine by Screen method Observa Value Referen Units Interpr Notes Date tion ce etation Range Positive urine drug screen samples are stored for 7 days. Contact the Lab if confirmation of positives is needed. Ampheta NEGATIV <1000 ng/mL No No May 18 mine E informa informa 2017 [Presen tion in tion in 9:35 AM ce] in source source Urine data data by Screen method Barbitura <200 ng/mL High This is May 18 jose ramon an 2017 9:35 [Mass/vol UNCONFIRM AM ume] in ED Urine by result. Screen This method result is for medicalpu rposes and/or treatment only. Benzodiaz 200 ng/mL ng/mL No No May 18 epines informati informati 2017 9:35 [Mass/vol on in on in AM ume] in source source Serum or data data Plasma by Screen method Cocaine <300 ng/g No No May 18 [Mass/vol informati informati 2017 9:35 ume] in on in on in AM Unspecifi source source ed data data specimen Methadone <300 ng/mL No No May 18 informati informati 2017 9:35 [Mass/vol on in on in AM ume] in source source Unspecifi data data ed specimen Opiates <300 ng/mL No No May 18 [Mass/vol informati informati 2017 9:35 ume] in on in on in AM Unspecifi source source ed data data specimen Phencycli <25 ng/mL No No May 18 dine informati informati 2017 9:35 [Mass/vol on in on in AM ume] in source source Unspecifi data data ed specimen 11-Hydr NEGATIV <50 ng/mL No No May 18 oxy E informa informa 2017 delta-9 tion in tion in 9:35 AM source source tetrahy data data drocann abinol [Presen ce] in Unspeci fied specime n Urinalysis dipstick W Reflex Microscopic panel in Urine Observa Value Referen Units Interpr Notes Date tion ce etation Range Appeara CLEAR CLEAR No No No May 15 nce of informa informa informa 2017 Urine tion in tion in tion in 10:45 source source source PM data data data Bacteri 1+ O No No No May 15 a informa informa informa 2016 [Presen tion in tion in tion in 10:45 ce] in source source source PM Urine data data data sedimen t by Light microsc opy Bilirub NEGATIV NEG No No No May 15 in E informa informa informa 2016 [Presen tion in tion in tion in 10:45 ce] in source source source PM Urine data data data by Test strip Erythro NEGATIV NEG No No No May 15 cytes E informa informa informa 2016 [Presen tion in tion in tion in 10:45 ce] in source source source PM Urine data data data Color YELLOW YELLOW No No No May 15 of informa informa informa 2016 Urine tion in ti in tion in 10:45 source source source PM data data data Glucose NEG No No No May 15 [Mass/vol informati informati informati 2017 ume] in on in on in on in 10:45 PM Urine by source source source Test data data data strip Ketones NEGATIV NEG mg/dL No No May 15 E informa informa 2016 [Presen tion in tion in 10:45 ce] in source source PM Urine data data by Automat ed test strip Mucus NEGATIV NEG No No No May 15 [Presen E informa informa informa 2016 ce] in tion in tion in tion in 10:45 Urine source source source PM sedimen data data data t by Light microsc opy Mucus OCC NONE No No No May 15 [Presen informa informa informa 2016 ce] in tion in tion in tion in 10:45 Urine source source source PM sedimen data data data t by Light microsc opy Nitrite NEGATIV NEG No No No May 15 E informa informa informa 2016 [Presen tion in tion in tion in 10:45 ce] in source source source PM Urine data data data by Test strip pH of 5.0 - 8.5 No Normal No May 15 Urine informati informati 2017 on in on in 10:45 PM source source data data Protein NEG mg/dL No No May 15 [Mass/vol informati informati 2016 ume] in on in on in 10:45 PM Urine by source source Automated data data test strip Erythro OCC 0 rbc/hpf No No May 15 cytes informa informa 2016 [Presen tion in tion in 10:45 ce] in source source PM Urine data data sedimen t by Light microsc opy Specific 1.005 - No Normal No May 15 gravity 1.030 informati informati 2016 of Urine on in on in 10:45 PM source source data data Urobili 0.2 NEG E.U./dL No No May 15 nogen informa informa 2016 [Presen tion in tion in 10:45 ce] in source source PM Urine data data by Test strip Leukocyte O wbc/hpf No No May 15 s informati informati 2016 [#/volume on in on in 10:45 PM ] in source source Urine data data Drugs identified in Urine by Screen method Observa Value Referen Units Interpr Notes Date tion ce etation Range Positive urine drug screen samples are stored for 7 days. Contact the Lab if confirmation of positives is needed. Ampheta NEGATIV <1000 ng/mL No No May 15 mine E informa informa 2016 [Presen tion in tion in 10:45 ce] in source source PM Urine data data by Screen method Barbitura <200 ng/mL No No May 15 jose ramon informati informati 2016 [Mass/vol on in on in 10:45 PM ume] in source source Urine by data data Screen method Benzodiaz 200 ng/mL ng/mL No No May 15 epines informati informati 2016 [Mass/vol on in on in 10:45 PM ume] in source source Serum or data data Plasma by Screen method Cocaine <300 ng/g No No May 15 [Mass/vol informati informati 2016 ume] in on in on in 10:45 PM Unspecifi source source ed data data specimen Methadone <300 ng/mL No No May 15 informati informati 2016 [Mass/vol on in on in 10:45 PM ume] in source source Unspecifi data data ed specimen Opiates <300 ng/mL High This is May 15 [Mass/vol an 2016 ume] in UNCONFIRM 10:45 PM Unspecifi ED ed result. specimen This result is for medicalpu rposes and/or treatment only. Phencycli <25 ng/mL No No May 8 dine informati informati 2016 [Mass/vol on in on in 10:45 PM ume] in source source Unspecifi data data ed specimen 11-Hydr NEGATIV <50 ng/mL No No May 8 oxy E informa informa 2017 delta-9 tion in tion in 10:45 source source PM tetrahy data data drocann abinol [Presen ce] in Unspeci fied specime n Urinalysis dipstick W Reflex Microscopic panel in Urine Observa Value Referen Units Interpr Notes Date tion ce etation Range Appeara CLEAR CLEAR No No No May 15 nce of informa informa informa 2017 Urine tion in tion in tion in 10:45 source source source PM data data data Bilirub NEGATIV NEG No No No May 15 in E informa informa informa 2016 [Presen tion in tion in tion in 10:45 ce] in source source source PM Urine data data data by Test strip Erythro NEGATIV NEG No No No May 15 cytes E informa informa informa 2016 [Presen tion in tion in tion in 10:45 ce] in source source source PM Urine data data data Color YELLOW YELLOW No No No May 15 of informa informa informa 2017 Urine tion in tion in tion in 10:45 source source source PM data data data Glucose NEG No No No May 15 [Mass/vol informati informati informati 2016 ume] in on in on in on in 10:45 PM Urine by source source source Test data data data strip Ketones NEGATIV NEG mg/dL No No May 15 E informa informa 2016 [Presen tion in tion in 10:45 ce] in source source PM Urine data data by Automat ed test strip Mucus NEGATIV NEG No No No May 15 [Presen E informa informa informa 2016 ce] in tion in tion in tion in 10:45 Urine source source source PM sedimen data data data t by Light microsc opy Nitrite NEGATIV NEG No No No May 15 E informa informa informa 2017 [Presen tion in tion in tion in 10:45 ce] in source source source PM Urine data data data by Test strip pH of 5.0 - 8.5 No Normal No May 15 Urine informati informati 2017 on in on in 10:45 PM source source data data Protein NEG mg/dL No No May 15 [Mass/vol informati informati 2017 ume] in on in on in 10:45 PM Urine by source source Automated data data test strip Specific 1.005 - No Normal No May 15 gravity 1.030 informati informati 2017 of Urine on in on in 10:45 PM source source data data Urobili 0.2 NEG E.U./dL No No May 15 nogen informa informa 2017 [Presen tion in tion in 10:45 ce] in source source PM Urine data data by Test strip Ethanol [Mass/volume] in Serum or Plasma Observa Value Referen Units Interpr Notes Date tion ce etation Range Ethanol 0 - 99 mg/dL No ANY May 15 [Mass/vol informati ALCOHOL > 2017 ume] in on in OR = 80 10:40 PM Serum or source MG/DL IS Plasma data CONSIDERE D LEGALLYIN TOXICATED UNDER [place] [employer]. Comprehensive metabolic 2000 panel in Serum or Plasma Observa Value Referen Units Interpr Notes Date tion ce etation Range Albumin/G 1.1 - 1.8 No Low No May 15 lobulin informati informati 2016 [Mass on in on in 10:40 PM ratio] in source source Serum or data data Plasma Albumin 3.4 - 5.0 gm/dL Normal No May 15 [Mass/vol informati 2016 ume] in on in 10:40 PM Serum or source Plasma data Alkaline 46 - 116 U/L Normal No May 15 phosphata informati 2017 se on in 10:40 PM [Enzymati source c data activity/ volume] in Serum or Plasma Bilirubin 0.2 - 1.0 mg/dL Normal No May 15 .total informati 2016 [Mass/vol on in 10:40 PM ume] in source Serum or data Plasma Urea 7 - 18 mg/dL High No May 15 nitrogen informati 2016 [Mass/vol on in 10:40 PM ume] in source Serum or data Plasma Calcium 8.5 - mg/dL Normal No May 15 [Mass/vol 10.1 informati 2017 ume] in on in 10:40 PM Serum or source Plasma data Chloride 98 - 107 mmoL/L Normal No May 15 [Moles/vo informati 2016 lume] in on in 10:40 PM Serum or source Plasma data Carbon 21.0 - mmoL/L Normal No May 15 dioxide, 32.0 informati 2016 total on in 10:40 PM [Moles/vo source lume] in data Serum or Plasma Creatinin 0.70 - mg/dL Normal No May 15 e 1.30 informati 2016 [Mass/vol on in 10:40 PM ume] in source Serum or data Plasma Creatinin 50 - 200 ML/MIN Normal No May 15 e renal informati 2017 clearance on in 10:40 PM source predicted data by Cockcroft -Gault formula Estimated >60 ML/MIN No REFERENCE May 15 informati RANGE: 2017 glomerula on in >60 10:40 PM r source ML/MIN/1. filtratio data 73 SQUARE n rate METERSIf (GF this patient is -A merican, then multiply theresult by 1.210. Globulin 1.3 - 3.2 gm/dL High No May 15 [Mass/vol informati 2016 ume] in on in 10:40 PM Serum source data Glucose 74 - 106 mg/dL Normal No May 15 [Mass/vol informati 2016 ume] in on in 10:40 PM Serum or source Plasma data Potassium 3.5 - 5.1 mmoL/L Normal No May 152016 [Moles/vo on in 10:40 PM lume] in source Serum or data Plasma Sodium 136 - 145 mmoL/L Normal No May 15 [Moles/vo informati 2016 lume] in on in 10:40 PM Serum or source Plasma data Aspartate 15 - 37 U/L Normal No May 152016 aminotran on in 10:40 PM sferase source [Enzymati data c activity/ volume] in Serum or Plasma Alanine 12 - 78 U/L Normal No May 15 aminotran inform2016 sferase on in 10:40 PM [Enzymati source c data activity/ volume] in Serum or Plasma Protein 6.4 - 8.2 gm/dL Normal No May 15 [Mass/vol informati 2017 ume] in on in 10:40 PM Serum or source Plasma data CBC W Auto Differential panel in Blood Observa Value Referen Units Interpr Notes Date tion ce etation Range Basophils 0 - 0.2 K/MM3 Normal No May 152016 [#/volume on in 10:40 PM ] in source Blood by data Automated count Basophils 0.1 - 2.0 % Normal No May 152016 leukocyte on in 10:40 PM s in source Blood by data Automated count Eosinophi 0.0 - 0.4 K/mm3 Normal No May 15 ls 2016 [#/volume on in 10:40 PM ] in source Blood by data Automated count Eosinophi 0.1 - % Normal No May 15 ls/100 12.0 inform2016 leukocyte on in 10:40 PM s in source Blood by data Automated count Granulocy 1.3 - 8.0 K/mm3 Normal No May 15 jose ramon 2016 [#/volume on in 10:40 PM ] in source Blood by data Automated count Granulocy 37.0 - % Normal No May 15 jose ramon/100 80.0 2016 leukocyte on in 10:40 PM s in source Blood by data Automated count Hematocri 42.0 - % Normal No May 15 t [Volume 52.0 2016 on in 10:40 PM Fraction] source of Blood data Hemoglobi 14.1 - g/dL Normal No May 15 n 18.0 2016 [Mass/vol on in 10:40 PM ume] in source Blood data Lymphocyt 0.7 - 4.5 K/mm3 Normal No May 15 es 2016 [#/volume on in 10:40 PM ] in source Unspecifi data ed specimen by Automated count Lymphocyt 10 - 50 % Normal No May 15 es 2016 [#/volume on in 10:40 PM ] in source Unspecifi data ed specimen by Automated count Erythrocy 27 - 31.2 pg High No May 15 te mean 2016 corpuscul on in 10:40 PM ar source hemoglobi data n [Entitic mass] Erythrocy 31.8 - g/dl Normal No May 15 te mean 35.4 2016 corpuscul on in 10:40 PM ar source hemoglobi data n concentra tion [Mass/vol ume] by Automated count Erythrocy 82.2 - fl Normal No May 15 te mean 97.8 2016 corpuscul on in 10:40 PM ar volume source [Entitic data volume] by Automated count Monocytes 0.1 - 1.0 K/mm3 Normal No May 8 inform2016 [#/volume on in 10:40 PM ] in source Blood by data Automated count Monocytes 1.7 - 9.3 % Normal No May 8 /100 2016 leukocyte on in 10:40 PM s in source Blood by data Automated count Platelet 7.4 - fl Normal No May 15 mean 10.4 2016 volume on in 10:40 PM [Entitic source volume] data in Blood by Automated count Platelets 142 - 424 K/mm3 Normal No May 15 inform2016 [#/volume on in 10:40 PM ] in source Blood data Erythrocy 4.6 - 6.2 M/mm3 Normal No May 8 jose ramon informati 2016 [#/volume on in 10:40 PM ] in source Amniotic data fluid Erythrocy 11.5 - % Normal No May 15 te 17.5 2016 distribut on in 10:40 PM ion width source [Entitic data volume] by Automated count Leukocyte 4.8 - K/MM3 Normal May 15 s 10.8 2016 [#/volume on in 10:40 PM ] in source Blood data Erythrocyte sedimentation rate by Westergren method Observa Value Referen Units Interpr Notes Date tion ce etation Range Erythrocy 0 - 15 mm/hr High No May 10 te informati 2016 8:45 sedimenta on in PM tion rate source by data Westergre n method Comprehensive metabolic 2000 panel in Serum or Plasma Observa Value Referen Units Interpr Notes Date tion ce etation Range Albumin/G 1.1 - 1.8 No Low No May 3 lobulin informati informati 2016 8:45 [Mass on in on in PM ratio] in source source Serum or data data Plasma Albumin 3.4 - 5.0 gm/dL Normal No May 10 [Mass/vol informati 2016 8:45 ume] in on in PM Serum or source Plasma data Alkaline 46 - 116 U/L Normal No May 10 phosphata informati 2016 8:45 se on in PM [Enzymati source c data activity/ volume] in Serum or Plasma Bilirubin 0.2 - 1.0 mg/dL Normal No May 10 .total informati 2016 8:45 [Mass/vol on in PM ume] in source Serum or data Plasma Urea 7 - 18 mg/dL High No May 10 nitrogen informati 2016 8:45 [Mass/vol on in PM ume] in source Serum or data Plasma Calcium 8.5 - mg/dL Normal No May 10 [Mass/vol 10.1 informati 2016 8:45 ume] in on in PM Serum or source Plasma data Chloride 98 - 107 mmoL/L Normal No May 10 [Moles/vo informati 2016 8:45 lume] in on in PM Serum or source Plasma data Carbon 21.0 - mmoL/L Normal No May 10 dioxide, 32.0 informati 2016 8:45 total on in PM [Moles/vo source lume] in data Serum or Plasma Creatinin 0.70 - mg/dL Normal No May 10 e 1.30 informati 2016 8:45 [Mass/vol on in PM ume] in source Serum or data Plasma Creatinin 50 - 200 ML/MIN High No May 10 e renal informati 2016 8:45 clearance on in PM source predicted data by Cockcroft -Gault formula Estimated >60 ML/MIN No REFERENCE May 10 informati RANGE: 2017 8:45 glomerula on in >60 PM r source ML/MIN/1. filtratio data 73 SQUARE n rate METERSIf (GF this patient is -A merican, then multiply theresult by 1.210. Globulin 1.3 - 3.2 gm/dL High No May 10 [Mass/vol informati 2016 8:45 ume] in on in PM Serum source data Glucose 74 - 106 mg/dL Normal No May 10 [Mass/vol informati 2016 8:45 ume] in on in PM Serum or source Plasma data Potassium 3.5 - 5.1 mmoL/L Normal No May 10 informati 2016 8:45 [Moles/vo on in PM lume] in source Serum or data Plasma Sodium 136 - 145 mmoL/L Normal No May 10 [Moles/vo informati 2016 8:45 lume] in on in PM Serum or source Plasma data Aspartate 15 - 37 U/L Normal No May 10 informati 2016 8:45 aminotran on in PM sferase source [Enzymati data c activity/ volume] in Serum or Plasma Alanine 12 - 78 U/L Normal No May 10 aminotran informati 2016 8:45 sferase on in PM [Enzymati source c data activity/ volume] in Serum or Plasma Protein 6.4 - 8.2 gm/dL Normal No May 10 [Mass/vol informati 2016 8:45 ume] in on in PM Serum or source Plasma data Lipase [Enzymatic activity/volume] in Serum or Plasma Observa Value Referen Units Interpr Notes Date tion ce etation Range Lipase 73 - 393 U/L Normal No May 10 [Enzymati inform2016 8:45 c on in PM activity/ source volume] data in Serum or Plasma CBC W Auto Differential panel in Blood Observa Value Referen Units Interpr Notes Date tion ce etation Range Basophils 0 - 0.2 K/MM3 Normal No May 10 inform2016 8:45 [#/volume on in PM ] in source Blood by data Automated count Basophils 0.1 - 2.0 % Normal No May 10 /100 informati 2016 8:45 leukocyte on in PM s in source Blood by data Automated count Eosinophi 0.0 - 0.4 K/mm3 Normal No May 10 ls ati 2016 8:45 [#/volume on in PM ] in source Blood by data Automated count Eosinophi 0.1 - % Normal No May 10 ls/100 12.0 informati 2016 8:45 leukocyte on in PM s in source Blood by data Automated count Granulocy 1.3 - 8.0 K/mm3 Normal No May 10 jose ramon ati 2016 8:45 [#/volume on in PM ] in source Blood by data Automated count Granulocy 37.0 - % Normal No May 10 jose ramon/100 80.0 informati 2016 8:45 leukocyte on in PM s in source Blood by data Automated count Hematocri 42.0 - % Normal No May 10 t [Volume 52.0 informati 2016 8:45 on in PM Fraction] source of Blood data Hemoglobi 14.1 - g/dL Normal No May 10 n 18.0 2016 8:45 [Mass/vol on in PM ume] in source Blood data Lymphocyt 0.7 - 4.5 K/mm3 Normal No May 10 es informati 2016 8:45 [#/volume on in PM ] in source Unspecifi data ed specimen by Automated count Lymphocyt 10 - 50 % Normal No May 10 es 2016 8:45 [#/volume on in PM ] in source Unspecifi data ed specimen by Automated count Erythrocy 27 - 31.2 pg High No May 10 te mean ati 2016 8:45 corpuscul on in PM ar source hemoglobi data n [Entitic mass] Erythrocy 31.8 - g/dl Normal No May 10 te mean 35.4 informati 2016 8:45 corpuscul on in PM ar source hemoglobi data n concentra tion [Mass/vol ume] by Automated count Erythrocy 82.2 - fl Normal No May 10 te mean 97.8 informati 2016 8:45 corpuscul on in PM ar volume source [Entitic data volume] by Automated count Monocytes 0.1 - 1.0 K/mm3 Normal No May 10 informati 2016 8:45 [#/volume on in PM ] in source Blood by data Automated count Monocytes 1.7 - 9.3 % Normal No May 10 /100 informati 2016 8:45 leukocyte on in PM s in source Blood by data Automated count Platelet 7.4 - fl Normal No May 10 mean 10.4 informati 2016 8:45 volume on in PM [Entitic source volume] data in Blood by Automated count Platelets 142 - 424 K/mm3 Normal No May 10 inform2016 8:45 [#/volume on in PM ] in source Blood data Erythrocy 4.6 - 6.2 M/mm3 Normal No May 10 jose ramon informati 2016 8:45 [#/volume on in PM ] in source Amniotic data fluid Erythrocy 11.5 - % Normal No May 10 te 17.5 informati 2016 8:45 distribut on in PM ion width source [Entitic data volume] by Automated count Leukocyte 4.8 - K/MM3 Normal No May 10 s 10.8 informati 2016 8:45 [#/volume on in PM ] in source Blood data Drugs identified in Urine by Screen method Observa Value Referen Units Interpr Notes Date tion ce etation Range Positive urine drug screen samples are stored for 7 days. Contact the Lab if confirmation of positives is needed. Ampheta NEGATIV <1000 ng/mL No No Apr 24 mine E informa informa 2016 [Presen tion in tion in 9:45 AM ce] in source source Urine data data by Screen method Barbitura <200 ng/mL No No Apr 24 jose ramon informati informati 2016 9:45 [Mass/vol on in on in AM ume] in source source Urine by data data Screen method Benzodiaz 200 ng/mL ng/mL No No Apr 24 epines informati informati 2016 9:45 [Mass/vol on in on in AM ume] in source source Serum or data data Plasma by Screen method Cocaine <300 ng/g No No Apr 24 [Mass/vol informati informati 2016 9:45 ume] in on in on in AM Unspecifi source source ed data data specimen Methadone <300 ng/mL No No Apr 24 informati informati 2017 9:45 [Mass/vol on in on in AM ume] in source source Unspecifi data data ed specimen Opiates <300 ng/mL High This is Apr 24 [Mass/vol an 2017 9:45 ume] in UNCONFIRM AM Unspecifi ED ed result. specimen This result is for medicalpu rposes and/or treatment only. Phencycli <25 ng/mL No No Apr 24 dine informati informati 2016 9:45 [Mass/vol on in on in AM ume] in source source Unspecifi data data ed specimen 11-Hydr NEGATIV <50 ng/mL No No Apr 24 oxy E informa informa 2017 delta-9 tion in tion in 9:45 AM source source tetrahy data data drocann abinol [Presen ce] in Unspeci fied specime n Drugs identified in Urine by Screen method Observa Value Referen Units Interpr Notes Date tion ce etation Range Positive urine drug screen samples are stored for 7 days. Contact the Lab if confirmation of positives is needed. Ampheta NEGATIV <1000 ng/mL No No Apr 11 mine E informa informa 2016 [Presen tion in tion in 2:15 PM ce] in source source Urine data data by Screen method Barbitura <200 ng/mL No No Apr 11 jose ramon informati informati 2017 2:15 [Mass/vol on in on in PM ume] in source source Urine by data data Screen method Benzodiaz 200 ng/mL ng/mL No No Apr 11 epines informati informati 2017 2:15 [Mass/vol on in on in PM ume] in source source Serum or data data Plasma by Screen method Cocaine <300 ng/g No No Apr 11 [Mass/vol informati informati 2017 2:15 ume] in on in on in PM Unspecifi source source ed data data specimen Methadone <300 ng/mL No No Apr 11 informati informati 2017 2:15 [Mass/vol on in on in PM ume] in source source Unspecifi data data ed specimen Opiates <300 ng/mL High This is Apr 11 [Mass/vol an 2016 2:15 ume] in UNCONFIRM PM Unspecifi ED ed result. specimen This result is for medicalpu rposes and/or treatment only. Phencycli <25 ng/mL No No Apr 11 dine informati informati 2016 2:15 [Mass/vol on in on in PM ume] in source source Unspecifi data data ed specimen 11-Hydr NEGATIV <50 ng/mL No No Apr 11 oxy E informa informa 2017 delta-9 tion in tion in 2:15 PM source source tetrahy data data drocann abinol [Presen ce] in Unspeci fied specime n Drugs identified in Urine by Screen method Observa Value Referen Units Interpr Notes Date tion ce etation Range Positive urine drug screen samples are stored for 7 days. Contact the Lab if confirmation of positives is needed. Ampheta NEGATIV <1000 ng/mL No No Mar 27 mine E informa informa 2017 [Presen tion in tion in 1:10 PM ce] in source source Urine data data by Screen method Barbitura <200 ng/mL No No Mar 27 jose ramon informati informati 2016 1:10 [Mass/vol on in on in PM ume] in source source Urine by data data Screen method Benzodiaz 200 ng/mL ng/mL No No Mar 27 epines informati informati 2016 1:10 [Mass/vol on in on in PM ume] in source source Serum or data data Plasma by Screen method Cocaine <300 ng/g No No Mar 27 [Mass/vol informati informati 2016 1:10 ume] in on in on in PM Unspecifi source source ed data data specimen Methadone <300 ng/mL No No Mar 27 informati informati 2016 1:10 [Mass/vol on in on in PM ume] in source source Unspecifi data data ed specimen Opiates <300 ng/mL High This is Mar 27 [Mass/vol an 2016 1:10 ume] in UNCONFIRM PM Unspecifi ED ed result. specimen This result is for medicalpu rposes and/or treatment only. Phencycli <25 ng/mL No No Mar 27 dine informati informati 2016 1:10 [Mass/vol on in on in PM ume] in source source Unspecifi data data ed specimen 11-Hydr NEGATIV <50 ng/mL No No Mar 20 oxy E informa informa 2017 delta-9 tion in tion in 1:10 PM source source tetrahy data data drocann abinol [Presen ce] in Unspeci fied specime n Comprehensive metabolic 2000 panel in Serum or Plasma Observa Value Referen Units Interpr Notes Date tion ce etation Range Albumin/G 1.1 - 1.8 No Low No Mar 25 lobulin informati informati 2017 8:41 [Mass on in on in PM ratio] in source source Serum or data data Plasma Albumin 3.4 - 5.0 gm/dL Normal No Mar 25 [Mass/vol informati 2016 8:41 ume] in on in PM Serum or source Plasma data Alkaline 46 - 116 U/L Normal No Mar 25 phosphata informati 2017 8:41 se on in PM [Enzymati source c data activity/ volume] in Serum or Plasma Bilirubin 0.2 - 1.0 mg/dL Normal No Mar 25 .total informati 2017 8:41 [Mass/vol on in PM ume] in source Serum or data Plasma Urea 7 - 18 mg/dL Normal No Mar 25 nitrogen informati 2017 8:41 [Mass/vol on in PM ume] in source Serum or data Plasma Calcium 8.5 - mg/dL Normal No Mar 25 [Mass/vol 10.1 informati 2017 8:41 ume] in on in PM Serum or source Plasma data Chloride 98 - 107 mmoL/L Normal No Mar 25 [Moles/vo informati 2016 8:41 lume] in on in PM Serum or source Plasma data Carbon 21.0 - mmoL/L Normal No Mar 25 dioxide, 32.0 informati 2017 8:41 total on in PM [Moles/vo source lume] in data Serum or Plasma Creatinin 0.70 - mg/dL Normal No Mar 25 e 1.30 informati 2017 8:41 [Mass/vol on in PM ume] in source Serum or data Plasma Creatinin 50 - 200 ML/MIN High No Mar 18 e renal informati 2017 8:41 clearance on in PM source predicted data by Cockcroft -Gault formula Estimated >60 ML/MIN No REFERENCE Wong 18 informati RANGE: 2016 8:41 glomerula on in >60 PM r source ML/MIN/1. filtratio data 73 SQUARE n rate METERSIf (GF this patient is -A merican, then multiply theresult by 1.210. Globulin 1.3 - 3.2 gm/dL High No Mar 25 [Mass/vol informati 2016 8:41 ume] in on in PM Serum source data Glucose 74 - 106 mg/dL Normal No Mar 25 [Mass/vol informati 2016 8:41 ume] in on in PM Serum or source Plasma data Potassium 3.5 - 5.1 mmoL/L Normal No Mar 25 inform2016 8:41 [Moles/vo on in PM lume] in source Serum or data Plasma Sodium 136 - 145 mmoL/L Normal No Mar 25 [Moles/vo informati 2016 8:41 lume] in on in PM Serum or source Plasma data Aspartate 15 - 37 U/L Normal No Mar 25 inform2016 8:41 aminotran on in PM sferase source [Enzymati data c activity/ volume] in Serum or Plasma Alanine 12 - 78 U/L Normal No Mar 25 aminotran ati 2016 8:41 sferase on in PM [Enzymati source c data activity/ volume] in Serum or Plasma Protein 6.4 - 8.2 gm/dL Normal No Mar 25 [Mass/vol informati 2016 8:41 ume] in on in PM Serum or source Plasma data CBC W Auto Differential panel in Blood Observa Value Referen Units Interpr Notes Date tion ce etation Range Basophils 0 - 0.2 K/MM3 Normal No Mar 252016 8:41 [#/volume on in PM ] in source Blood by data Automated count Basophils 0.1 - 2.0 % Normal No Mar 25 /100 informati 2016 8:41 leukocyte on in PM s in source Blood by data Automated count Eosinophi 0.0 - 0.4 K/mm3 Normal No Mar 25 ls informati 2016 8:41 [#/volume on in PM ] in source Blood by data Automated count Eosinophi 0.1 - % Normal No Mar 25 ls/100 12.0 informati 2016 8:41 leukocyte on in PM s in source Blood by data Automated count Granulocy 1.3 - 8.0 K/mm3 Normal No Mar 25 jose ramon ati 2016 8:41 [#/volume on in PM ] in source Blood by data Automated count Granulocy 37.0 - % Normal No Mar 18 jose ramon/100 80.0 informati 2017 8:41 leukocyte on in PM s in source Blood by data Automated count Hematocri 42.0 - % Normal No Mar 25 t [Volume 52.0 informati 2017 8:41 on in PM Fraction] source of Blood data Hemoglobi 14.1 - g/dL Normal No Mar 25 n 18.0 informati 2017 8:41 [Mass/vol on in PM ume] in source Blood data Lymphocyt 0.7 - 4.5 K/mm3 Normal No Mar 25 es informati 2017 8:41 [#/volume on in PM ] in source Unspecifi data ed specimen by Automated count Lymphocyt 10 - 50 % Normal No Mar 25 es informati 2017 8:41 [#/volume on in PM ] in source Unspecifi data ed specimen by Automated count Erythrocy 27 - 31.2 pg Normal No Mar 25 te mean informati 2017 8:41 corpuscul on in PM ar source hemoglobi data n [Entitic mass] Erythrocy 31.8 - g/dl Normal No Mar 25 te mean 35.4 informati 2017 8:41 corpuscul on in PM ar source hemoglobi data n concentra tion [Mass/vol ume] by Automated count Erythrocy 82.2 - fl Normal No Mar 25 te mean 97.8 informati 2017 8:41 corpuscul on in PM ar volume source [Entitic data volume] by Automated count Monocytes 0.1 - 1.0 K/mm3 Normal No Mar 25 informati 2017 8:41 [#/volume on in PM ] in source Blood by data Automated count Monocytes 1.7 - 9.3 % Normal No Mar 18 /100 informati 2017 8:41 leukocyte on in PM s in source Blood by data Automated count Platelet 7.4 - fl Normal No Mar 25 mean 10.4 informati 2017 8:41 volume on in PM [Entitic source volume] data in Blood by Automated count Platelets 142 - 424 K/mm3 Normal No Mar 25 informati 2017 8:41 [#/volume on in PM ] in source Blood data Erythrocy 4.6 - 6.2 M/mm3 Normal No Mar 25 jose ramon informati 2017 8:41 [#/volume on in PM ] in source Amniotic data fluid Erythrocy 11.5 - % Normal No Mar 25 te 17.5 informati 2017 8:41 distribut on in PM ion width source [Entitic data volume] by Automated count Leukocyte 4.8 - K/MM3 Normal No Wong 18 s 10.8 informati 2017 8:41 [#/volume on in PM ] in source Blood data Opiates and Oxycodone(GC/MS),U Observa Value Referen Units Interpr Notes Date tion ce etation Range Oxycodo Negativ Cutoff= No No Test Wong 6 ne/Oxym e 100 informa informa include 2017 orph tion in tion in s 1:15 PM source source Oxycodo data data ne and Oxymorp honePer formed at: [facility] [id number] [facility], [place], [place] [id number]Lab Directo r: Guevara Pacheco MD, Phone: [phone] Opiates Negativ Cutoff= No No Opiate Wong 6 e 100 informa informa test 2017 tion in tion in include 1:15 PM source source s data data Codeine , Morphin e, Hydromo rphone, Hydroco done. Drugs identified in Urine by Screen method Observa Value Referen Units Interpr Notes Date tion ce etation Range Positive urine drug screen samples are stored for 7 days. Contact the Lab if confirmation of positives is needed. Ampheta NEGATIV <1000 ng/mL No No Mar 13 mine E informa informa 2016 [Presen tion in tion in 1:15 PM ce] in source source Urine data data by Screen method Barbitura <200 ng/mL No No Mar 6 jose ramon informati informati 2016 1:15 [Mass/vol on in on in PM ume] in source source Urine by data data Screen method Benzodiaz 200 ng/mL ng/mL No No Mar 6 epines informati informati 2017 1:15 [Mass/vol on in on in PM ume] in source source Serum or data data Plasma by Screen method Cocaine <300 ng/g No No Mar 6 [Mass/vol informati informati 2017 1:15 ume] in on in on in PM Unspecifi source source ed data data specimen Methadone <300 ng/mL No No Mar 6 informati informati 2017 1:15 [Mass/vol on in on in PM ume] in source source Unspecifi data data ed specimen Opiates <300 ng/mL No No Wong 6 [Mass/vol informati informati 2017 1:15 ume] in on in on in PM Unspecifi source source ed data data specimen Phencycli <25 ng/mL No No Wong 6 dine informati informati 2017 1:15 [Mass/vol on in on in PM ume] in source source Unspecifi data data ed specimen 11-Hydr NEGATIV <50 ng/mL No No Wong 6 oxy E informa informa 2017 delta-9 tion in tion in 1:15 PM source source tetrahy data data drocann abinol [Presen ce] in Unspeci fied specime n Basic metabolic panel in Blood Observa Value Referen Units Interpr Notes Date tion ce etation Range Urea 7 - 18 mg/dL Normal No Wong 1 nitrogen informati 2017 5:55 [Mass/vol on in PM ume] in source Serum or data Plasma Calcium 8.5 - mg/dL Normal No Wong 1 [Mass/vol 10.1 informati 2017 5:55 ume] in on in PM Serum or source Plasma data Chloride 98 - 107 mmoL/L Normal No Wong 1 [Moles/vo informati 2017 5:55 lume] in on in PM Serum or source Plasma data Carbon 21.0 - mmoL/L Normal No Wong 1 dioxide, 32.0 informati 2017 5:55 total on in PM [Moles/vo source lume] in data Serum or Plasma Creatinin 0.70 - mg/dL Normal No Wong 1 e 1.30 informati 2017 5:55 [Mass/vol on in PM ume] in source Serum or data Plasma Creatinin 50 - 200 ML/MIN Normal No Wong 1 e renal informati 2017 5:55 clearance on in PM source predicted data by Cockcroft -Gault formula Estimated >60 ML/MIN No REFERENCE Wong 1 informati RANGE: 2017 5:55 glomerula on in >60 PM r source ML/MIN/1. filtratio data 73 SQUARE n rate METERSIf (GF this patient is -A merican, then multiply theresult by 1.210. Glucose 74 - 106 mg/dL Normal No Wong 1 [Mass/vol informati 2017 5:55 ume] in on in PM Serum or source Plasma data Potassium 3.5 - 5.1 mmoL/L Normal No Wnog 1 informati 2017 5:55 [Moles/vo on in PM lume] in source Serum or data Plasma Sodium 136 - 145 mmoL/L Normal No Wong 1 [Moles/vo informati 2016 5:55 lume] in on in PM Serum or source Plasma data CBC W Auto Differential panel in Blood Observa Value Referen Units Interpr Notes Date tion ce etation Range Basophils 0 - 0.2 K/MM3 Normal No Wong 1 informati 2016 5:55 [#/volume on in PM ] in source Blood by data Automated count Basophils 0.1 - 2.0 % Normal No Wong 1 /100 informati 2017 5:55 leukocyte on in PM s in source Blood by data Automated count Eosinophi 0.0 - 0.4 K/mm3 Normal No Wong 1 ls informati 2017 5:55 [#/volume on in PM ] in source Blood by data Automated count Eosinophi 0.1 - % Normal No Wong 1 ls/100 12.0 informati 2016 5:55 leukocyte on in PM s in source Blood by data Automated count Granulocy 1.3 - 8.0 K/mm3 Normal No Wong 1 jose ramon informati 2016 5:55 [#/volume on in PM ] in source Blood by data Automated count Granulocy 37.0 - % Normal No Wong 1 jose ramon/100 80.0 informati 2017 5:55 leukocyte on in PM s in source Blood by data Automated count Hematocri 42.0 - % Normal No Wong 1 t [Volume 52.0 informati 2017 5:55 on in PM Fraction] source of Blood data Hemoglobi 14.1 - g/dL Normal No Owng 1 n 18.0 informati 2016 5:55 [Mass/vol on in PM ume] in source Blood data Lymphocyt 0.7 - 4.5 K/mm3 Normal No Wong 1 es informati 2016 5:55 [#/volume on in PM ] in source Unspecifi data ed specimen by Automated count Lymphocyt 10 - 50 % Normal No Mar 08 es informati 2016 5:55 [#/volume on in PM ] in source Unspecifi data ed specimen by Automated count Erythrocy 27 - 31.2 pg Normal No Wong te mean informati 2016 5:55 corpuscul on in PM ar source hemoglobi data n [Entitic mass] Erythrocy 31.8 - g/dl Normal No Mar 08 te mean 35.4 informati 2016 5:55 corpuscul on in PM ar source hemoglobi data n concentra tion [Mass/vol ume] by Automated count Erythrocy 82.2 - fl Normal No Mar 08 te mean 97.8 informati 2016 5:55 corpuscul on in PM ar volume source [Entitic data volume] by Automated count Monocytes 0.1 - 1.0 K/mm3 Normal No Wong 1 informati 2016 5:55 [#/volume on in PM ] in source Blood by data Automated count Monocytes 1.7 - 9.3 % Normal No Mar 1 /100 informati 2016 5:55 leukocyte on in PM s in source Blood by data Automated count Platelet 7.4 - fl Normal No Mar 08 mean 10.4 informati 2016 5:55 volume on in PM [Entitic source volume] data in Blood by Automated count Platelets 142 - 424 K/mm3 Low No Mar 08 informati 2016 5:55 [#/volume on in PM ] in source Blood data Erythrocy 4.6 - 6.2 M/mm3 Normal No Mar 08 jose ramon informati 2016 5:55 [#/volume on in PM ] in source Amniotic data fluid Erythrocy 11.5 - % Normal No Mar 08 te 17.5 informati 2016 5:55 distribut on in PM ion width source [Entitic data volume] by Automated count Leukocyte 4.8 - K/MM3 Normal No Mar 08 s 10.8 informati 2016 5:55 [#/volume on in PM ] in source Blood data Opiates and Oxycodone(GC/MS),U Observa Value Referen Units Interpr Notes Date tion ce etation Range Oxycodo Negativ Cutoff= No No Test February 12 ne/Oxym e 100 informa informa include 2017 orph tion in tion in s 1:10 PM source source Oxycodo data data ne and Oxymorp honePer formed at: [facility] [id number] [facility], [place], [place] [id number]Lab Directo r: Guevara Pacheco MD, Phone: [phone] Opiates Negativ Cutoff= No No Opiate February 12 e 100 informa informa test 2017 tion in tion in include 1:10 PM source source s data data Codeine , Morphin e, Hydromo rphone, Hydroco done. XR CHEST PA AND LATERAL Observa Value Referen Units Interpr Notes Date tion ce etation Range CLINICA No No No No Dec 20 L informa informa informa informa 2016 HISTORY tion in tion in tion in tion in 2:31 PM : Acute source source source source chest data data data data pain.\. br\\.br \COMPAR SUSAN: 1.\.br\ \.br\TE CHNIQUE : XR CHEST PA AND LATERAL on 12/21/19 16 2:31 PM.\.br \\.br\F INDINGS : The lungs are clear. There is no pneumot horax or pleural \.br\ef fusion. The\.br \heart size and pulmona ry vascula rity are normal. The upper abdomen and\.br \osseou s\.br\s tructur es are unremar kable.\ .br\\.b r\IMPRE SSION: No acute finding s.\.br\ Alc-Med Observa Value Referen Units Interpr Notes Date tion ce etation Range Alcohol 10 <=10 mg/dL No No Nov 18 informa informa 2016 Medical tion in tion in 8:06 PM source source data data Auto Diff Observa Value Referen Units Interpr Notes Date tion ce etation Range Neutrop 67.2 No % No No Nov 18 hils informa informa informa 2016 [#/volu tion in tion in tion in 7:49 PM me] in source source source Blood data data data by Automat ed count Lymphoc 26.8 No % No No Nov 18 ytes informa informa informa 2016 [#/volu tion in tion in tion in 7:49 PM me] in source source source Blood data data data by Automat ed count Monocyt 4.8 No % No No Nov 11 es informa informa informa 2016 [#/volu tion in tion in tion in 7:49 PM me] in source source source Blood data data data by Automat ed count Eos 0.7 No % No No Feb 11 Percent informa informa informa 2016 tion in tion in tion in 7:49 PM source source source data data data Baso 0.5 No % No No b 11 Percent informa informa informa 2016 tion in tion in tion in 7:49 PM source source source data data data Neut# 5.6 1.8 - x10(3)/ No No Feb 11 7.7 mcL informa informa 2016 tion in tion in 7:49 PM source source data data Lymph# 2.2 0.6 - x10(3)/ No No Feb 11 4.8 mcL informa informa 2016 tion in tion in 7:49 PM source source data data [place]# 0.4 0.0 - x10(3)/ No No Feb 11 1.3 mcL informa informa 2016 tion in tion in 7:49 PM source source data data Eos# 0.1 0.0 - x10(3)/ No No Feb 11 0.5 mcL informa informa 2016 tion in tion in 7:49 PM source source data data Baso# 0.0 0.0 - x10(3)/ No No Feb 11 0.2 mcL informa informa 2016 tion in tion in 7:49 PM source source data data CBC Observa Value Referen Units Interpr Notes Date tion ce etation Range LEUKOCY 8.3 4.0 - x10(3)/ No No Feb 11 JOSE RAMON 11.0 [facility] informa informa 2016 tion in tion in 7:49 PM source source data data Erythro 4.77 4.30 - x10(6)/ No No Feb 11 cytes 5.81 mcL informa informa 2016 [#/volu tion in tion in 7:49 PM me] in source source Blood data data by Automat ed count Hemoglo 14.4 13.5 - gm/dL No No Feb 11 bin 17.1 informa informa 2016 [Mass/v tion in tion in 7:49 PM olume] source source in data data Blood Hematoc 43.7 38.9 - % No No Feb 11 rit 51.6 informa informa 2016 [Volume tion in tion in 7:49 PM source source Fractio data data n] of Blood by Automat ed count Erythro 91.6 82.5 - fL No No Feb 11 cyte 99.8 informa informa 2016 mean tion in tion in 7:49 PM corpusc source source ular data data volume [Entiti c volume] by Automat ed count Erythro 30.3 27.0 - pg No No Nov 18 cyte 34.3 informa informa 2016 mean tion in tion in 7:49 PM corpusc source source ular data data hemoglo bin [Entiti c mass] by Automat ed count Erythro 33.0 32.1 - gm/dL No No Nov 18 cyte 35.3 informa informa 2016 mean tion in tion in 7:49 PM corpusc source source ular data data hemoglo bin concent ration [Mass/v olume] by Automat ed count Erythro 13.6 11.5 - % No No Nov 18 cyte 15.0 informa informa 2016 distrib tion in tion in 7:49 PM ution source source width data data [Ratio] by Automat ed count Platele 142 144 - x10(3)/ Low No Nov 18 ts 423 mcL informa 2016 [#/volu tion in 7:49 PM me] in source Blood data by Automat ed count MPV 9.8 6.8 - fL No No Nov 18 10.8 informa informa 2016 tion in tion in 7:49 PM source source data data Treponema pallidum IgG Ab [Presence] in Serum by Immunoassay Observa Value Referen Units Interpr Notes Date tion ce etation Range COLLECT N/A No No No No Sep 3 OR informa informa informa informa 2014 tion in tion in tion in tion in 8:00 AM source source source source data data data data ETHNICI W No No No No Sep 3 TY informa informa informa informa 2014 tion in tion in tion in tion in 8:00 AM source source source source data data data data PURPOSE ROUTINE No No No No Sep 3 OF informa informa informa informa 2014 EXAM tion in tion in tion in tion in 8:00 AM source source source source data data data data SPECIME BLOOD No No No No Sep 3 N informa informa informa informa 2014 SOURCE tion in tion in tion in tion in 8:00 AM source source source source data data data data CHART [id number] No No No No Sep 3 NUMBER informa informa informa informa 2014 tion in tion in tion in tion in 8:00 AM source source source source data data data data Trepone NON-GHASSAN No No No METHOD Sep [address] informa informa informa OF 2014 pallidu tion in tion in tion in ANALYSI 8:00 AM m IgG source source source S: Ab data data data EIANORM [Presen AL ce] in RANGE: Serum NON-GHASSAN by CTIVE\. Immunoa br\This ssay report contain s patient informa tion that [facility] with the [facility] [employer] ce Portabi lity and Account ability Act. Treponema pallidum IgG Ab [Presence] in Serum by Immunoassay Observa Value Referen Units Interpr Notes Date tion ce etation Range COLLECT N/A No No No No Sep 3 OR informa informa informa informa 2014 tion in tion in tion in tion in 8:00 AM source source source source data data data data ETHNICI W No No No No Sep 3 TY informa informa informa informa 2014 tion in tion in tion in tion in 8:00 AM source source source source data data data data PURPOSE ROUTINE No No No No Sep 3 OF informa informa informa informa 2014 EXAM tion in tion in tion in tion in 8:00 AM source source source source data data data data SPECIME BLOOD No No No No Sep 3 N informa informa informa informa 2014 SOURCE tion in tion in tion in tion in 8:00 AM source source source source data data data data CHART [id number] No No No No Sep 3 NUMBER informa informa informa informa 2014 tion in tion in tion in tion in 8:00 AM source source source source data data data data Trepone Pending No No No \.br\Th Sep 3 ma informa informa informa is 2014 pallidu tion in tion in tion in report 8:00 AM m IgG source source source contain Ab data data data s [Presen patient ce] in Serum informa by tion Immunoa that ssay must [facility] with the [employer] Ins[employer] ce Portabi lity and Account ability Act. XR ANKLE LEFT AP LATERAL AND OBLIQUE Observa Value Referen Units Interpr Notes Date tion ce etation Range Three-v No No No No May 27 iew informa informa informa informa 2014 left tion in tion in tion in tion in 2:53 PM ankle, source source source source 05/27/20 data data data data 14\.br\ \.br\HI STORY: Followu p fractur e of left fibula. \.br\\. br\FIND INGS: Three views of the left ankle were attaine d. Compari son is made\.b r\with prior study\. br\date d 4.\.br\ \.br\A circumf erentia l plaster cast obscure s some bone and soft tissue detail. \.br\Th ere is an oblique \.br\fr acture of the left distal fibula with near-an atomic alignme nt of\.br\ fractur e fragmen ts, without \.br\si gnifica nt change from 4. No new abnorma lities are seen.\. br\\.br \IMPRES KENDRA: Oblique fractur e of the left distal fibula in plaster . XR FOOT LEFT AP LATERAL AND OBLIQUE Observa Value Referen Units Interpr Notes Date ti ce etation Range XR FOOT No No No No May 13 LEFT informa informa informa informa 2013 AP tion in tion in tion in tion in 3:39 PM LATERAL source source source source AND data data data data OBLIQUE May 13, 2014 03:40:5 2 PM\.br\ \.br\CL INICAL HISTORY : 23-year -old with left distal fibular fractur e. Followu p.\.br\ 824.8-U nspecif ied\.br \closed fractur e of ankle-I CD-9-CM \.br\\. br\FIND INGS: Three views of the left foot in a cast.\. br\\.br \COMPAR SUSAN: July 20, 2008. Additio kailash, left tibia and fibula\ .br\rad iograph s dated April 29\.br \2013 reviewe d.\.br\ \.br\As noted on the oblique view, spiral fractur e of the left distal fibula is\.br\ noted. No additio nal\.br \fractu res identif ied althoug h evaluat ion is somewha t limited given the\.br \overly ing cast. No\.br\ disloca tion. No destruc tive lesions . Fractur e line remains readily \.br\ap parent. No signifi cant\.b r\perio steal reactio n or scleros is identif ied yet.\.b r\\.br\ IMPRESS ION:\.b r\1. Left distal fibular fractur e in a cast. XR ANKLE LEFT AP LATERAL AND OBLIQUE Observa Value Referen Units Interpr Notes Date tion ce etation Range XR No No No No May 13 ANKLE informa informa informa informa 2013 LEFT AP tion in tion in tion in tion in 3:39 PM source source source source LATERAL data data data data AND OBLIQUE May 13, 2014 03:40:5 2 PM\.br\ \.br\CL INICAL HISTORY : 23-year -old with history of left distal fibular \.br\fr acture. Followu p.\.br\ 824.8-U nspecif ied closed fractur e of ankle-I CD-9-CM \.br\\. br\FIND INGS: Two views of the left ankle in a cast.\. br\\.br \COMPAR SUSAN: April 29, 2014\.b r\\.br\ In the 2 week interva l, interva l placeme nt of an overlyi ng cast. As noted\. br\on the lateral view,\. br\the distal bony fragmen t is minimal displac ed approxi mately 2 to 3 mm. The\.br \fractu re line\.b r\remai ns readily apparen t. No additio nal fractur es appreci ated. Evaluat ion\.br \somewh at limited \.br\gi estela the overlyi ng cast. No disloca tion.\. br\\.br \IMPRES KENDRA:\. br\1. Left distal fibular fractur e in a cast. XR TIBIA FIBULA LEFT AP AND LATERAL Observa Value Referen Units Interpr Notes Date ti ce etation Range XR No No No No Apr 29 TIBIA informa informa informa informa 2013 FIBULA tion in tion in tion in tion in 3:47 PM LEFT AP source source source source AND data data data data LATERAL Apr 29, 2014 03:48:5 0 PM\.br\ \.br\Cl inical: 729.5-P ain in limb-IC D-9-CM\ .br\\.b r\MAGALI RISONS: None.\. br\\.br \FINDIN GS:\.br \\.br\T here is an acute oblique nondisp laced fractur e of the distal metaphy sis\.br \of the left fibula. \.br\Th e proxima l fibula is normal. There is normal alignme nt of the left\.b r\ankle . The ankle mortise \.br\is intact. There is lateral soft tissue swellin g of the left ankle.\ .br\\.b r\IMPRE SSION:\ .br\\.b r\Acute nondisp laced fractur e of the distal left fibular metaphy sis. XR KNEE LEFT AP LATERAL AND AXIAL Observa Value Referen Units Interpr Notes Date tion ce etation Range Include hughston views XR KNEE No No No No Apr 29 LEFT informa informa informa informa 2013 AP tion in tion in tion in tion in 3:47 PM LATERAL source source source source AND data data data data AXIAL Apr 29, 2014 03:48:5 0 PM\.br\ \.br\Cl inical: 719.46- Pain in joint, lower leg-ICD -9-CM\. br\\.br \COMPAR ISONS: 011.\.b r\\.br\ FINDING S:\.br\ \.br\Th ere is normal alignme nt of the left knee. The joint spaces are\.br \mainta ined. There is a small\. br\supr apatell ar recess joint effusio n. There are no acute fractur es.\.br \\.br\I MPRESSI ON:\.br \\.br\T here is a small joint effusio n. There is no underly ing fractur e or\.br\ disloca tion.
--- OUTSIDE RECORDS SUMMARY | 2017-07-20 02:26 | External Medical Summary Rpt ---
[...] GC/MS CONF 364 ng/mL CUTOFF=20 0[facility]i ng site[facility] [id number] [facility], [place] [address]Dir: Guevara Pacheco MDFor inquiries , the [...] Plasma data CONSIDERE D LEGALLYIN TOXICATED UNDER [place] [employer]. Comprehensive metabolic 2000 panel in Serum [...] honePer formed at: [facility] [id number] [facility], [place], [place] [id number]Lab Directo r: Guevara Pacheco MD, Phone: [phone] Opiates Negativ Cutoff= No No Opiate Wong [...] Potassium 3.5 - 5.1 mmoL/L Normal No Wong 1 informati 2017 5:55 [Moles/vo on in [...] data Hemoglobi 14.1 - g/dL Normal No Wong 1 n 18.0 informati 2016 5:55 [Mass/vol [...] honePer formed at: [facility] [id number] [facility], [place], [place] [id number]Lab Directo r: Guevara Pacheco MD, Phone: [phone] Opiates Negativ Cutoff= No No Opiate February [...] in 7:49 PM source source data data Moniteau# 0.4 0.0 - x10(3)/ No No Feb [...] No No Feb 11 JOSE RAMON 11.0 Health system informa informa 2016 tion in tion in [...] source source data data data data CHART [id number] No No No No Sep 3 NUMBER [...] tion that [facility] [place] [...] source source data data data data CHART [id number] No No No No Sep 3 NUMBER [...] that ssay must be protect [facility] with the [facility] [place] [...] br\\.br \COMPAR SUSAN: July 20, 2008. Additio kialash, left tibia and fibula\ .br\rad iograph s [...]
== END 2017-07-13 06:58 | disposition home or self-care (01) ==
LOC: ER 06:17
PROC: 0HQ0XZZ Repair Scalp Skin, External Approach (ICD-10-PCS; principal; 2017-07-13)
DX: S01.01XA Laceration without foreign body of scalp, initial encounter (principal); W25.XXXA Contact with sharp glass, initial encounter; Y93.9 Activity, unspecified; Y92.9 Unspecified place or not applicable; F17.210 Nicotine dependence, cigarettes, uncomplicated; M35.9 Systemic involvement of connective tissue, unspecified; I10 Essential (primary) hypertension; F41.9 Anxiety disorder, unspecified; Z79.891 Long term (current) use of opiate analgesic; Z79.899 Other long term (current) drug therapy

== ENCOUNTER 2017-07-21 19:00 | Emergency (ER) | payer MEDICAID ==
[~2017-07-21] VITALS: Ht 203.2 cm; Wt 140.6 kg
[~2017-07-21 19:00] MED LIST changes: +ZITHROMAX Z-PA250 M2 PO
[2017-07-21 19:23] LABS: URINE BILIRUBIN - DIPSTICK NEGATIVE (NEG); URINE BLOOD 1+ (NEG)
--- NOTE | 2017-07-21 19:25 | Emergency Room Report ---
History of Present Illness Time Seen by 1918 Presenting Problem in Triage Pt arrived:Walked Presenting Problem:PT REPORTS R LOWER BACK PAIN AND PAINFUL URINATION X2 DAYS. Onset of symptoms date/time:07/19/17/ or onset unknown for:MEDICAL HX UNKNOWN Treatment Prior to Arrival: [employer] Provided by: Sepsis Risk Assessment: Temp: 97.9 B/P: 150/77 MAP: 101 Pulse: 72 Resp: 20 Recent fever? N Clinical Suspician of Infection? N Mental Status: 1 - Regular (Normal Baseline) Sepsis Risk:Low Sepsis Risk Have you (or family members/close friends) recently traveled outside the [place]? N If Yes, where/when: Have you had exposure to infectious disease within the past month? N TB? Other? Specify: Source patient, RN notes reviewed Exam Limitations no limitations Comment comes to the ED with right low back pain and blood in urine and history of kidney stones. symptoms started 2 days ago Cardiac Chest Pain Chest pain indicative of cardiac No ALLERGIES Coded Allergies: tramadol (03/16/17) Home Medications Reported Medications Lisinopril 10 MG PO DAILY #30 (Destinee Fernandes MD) History Medical History General CAD? No Angina: No LA: No Hypertension? Yes Hyperlipidemia? No CHF? No DVT? No PE? No COPD? No Asthma? No Anemia? No GERD? No Gastric ulcers? No GI Bleed? No Hernia? No Thyroid Problems? No Hypothyroidism? No CVA? No Seizures? No Diabetes? No Renal Insuffiency? No End Stage Renal Disease? No UTI? No Stones? Yes BPH? No GB Disease: No Nephritic Syndrome? No Asplenia? No Hepatitis? No Sickle Cell Disease? No Arthritis? No Migraines? No Cataracts? No Glaucoma? No MRSA? No HIV? No TB? No Anxiety? Yes Depression? No Cancer? No More? Yes Additional hx: BACK PROBLEMS, ANXIETY, LUPUS Immunization Hx DT/Tetanus 1-4 Years Ago Surgical Hx Previous Surgery?Y TONSILS Social History Smoking Hx Smoker: Current Every Day Smoker Tobacco: Yes Type Cigarettes Packs/day 1 1/2 - 2 Packs Alcohol Alcohol: No (Destinee Fernandes MD) Review of Systems All Other Systems Reviewed and Negative Constitutional see HPI Genitourinary see HPI. Musculoskeletal see HPI (Destinee Fernandes MD) Physical Exam Vital Signs Vital Signs Date Time Temp Pulse Resp B/P Pulse O2 O2 Flow FiO2 Ox Delivery Rate 07/21 2041 97.9 72 20 150/77 100 07/21 1954 20 07/21 1905 97.9 72 20 150/77 100 General Appearance normal appearance, WD/WN, mild distress Respiratory Status No: respiratory distress. 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 No Results/Orders Laboratory Tests 07/21/171944: Sodium 138, Potassium 3.9, Chloride 105, Carbon Dioxide 25, BUN 18, Creatinine 0.9, Estimated Creat Clear 243 H, Estimated GFR (MDRD) 100, Glucose 82, Calcium 9.3, Total Bilirubin 0.3, AST 35, ALT 46, Alkaline Phosphatase 79, Total Protein 7.7, Albumin 3.9, Globulin 3.8 H, Albumin/Globulin Ratio 1.0 L, WBC 8.0, RBC 4.85, Hgb 14.7, Hct 43.3, MCV 89.2, RDW 12.9, Plt Count 157, MPV 9.9, Gran % 68.2, Gran # 5.4, Lymphocytes % 24.9, Monocytes % 3.6, Eosinophils % 2.8, Basophils % 0.5, Lymphocytes # 2.0, Monocytes # 0.3, Eosinophils # 0.2, Basophils # 0.0, PUBS MCHC 34.1, MCH 30.4 07/21/171909: Opiates Screen POSITIVE H, Urine Methadone Screen NEGATIVE, Barbiturates NEGATIVE, Phencyclidine Screen NEGATIVE, Amphetamines Screen NEGATIVE, Benzodiazepines Screen NEGATIVE, Cocaine Screen NEGATIVE, Marijuana (THC) Screen NEGATIVE, Urine Color YELLOW, Urine Appearance CLEAR, Urine pH 6.0, Ur Specific [place] >= 1.030, Urine Protein NEGATIVE, Urine Ketones NEGATIVE, Urine Blood 1+ H, Urine Nitrate NEGATIVE, Urine Bilirubin NEGATIVE, Urine Urobilinogen 0.2, Ur Leukocyte Esterase NEGATIVE, Urine RBC 5-10, Urine WBC OCC, Amorphous Sediment TRACE, Urine Mucus 1+, Urine Glucose NEGATIVE Current Medication Orders Sig/Jonathan Start time Last Medication Dose Route Stop Time Status Admin Ketorolac 30 MG ONCE ONE 07/21 1945 DC 07/21 Tromethamine IV 07/21 Sodium Chloride 10 ML PRN PRN 07/21 1945 AC IV 07/22 1934 Sodium Chloride 1,000 ML .Q4H 07/21 1945 AC 07/21 IV 07/21 Sodium Chloride 10 ML PRN PRN 07/21 1945 AC IV 07/22 1934 Ketorolac 0 .STK-MED ONE 07/21 1944 DC Tromethamine .ROUTE Sodium Chloride 1,000 ML .STK-MED ONE 07/21 1944 DC IV Orders Procedure Date/time Status DIET-NOTHING BY MOUTH 07/[address] ABD & PELVIS W/O CONTRAST 07/[address] ABD/PELVIS REQ 07/21 1935 Active IV SALINE LOCK 07/21 1935 Active DRUG ABUSE SCREEN (10) 07/21 1935 Complete CBC WITH AUTO DIFF 07/21 1935 Complete CHEM 12 PROFILE 07/21 1935 Complete URINALYSIS/COMPLETE 07/21 1912 Complete LABS/Meds/Orders Pt receiving controlled substance in ED? No XRAY/CT/US XRAY/CT/US CT abdomen, pelvis CT interpretation by discussed w/radiologist Time results known: 2050 CT Results normal/NAD (Connor Paula MD) Departure Departure Time of Disposition 1956 Condition STABLE Additional Instructions Turned over to Dr. Paula at end of shift pending CT of Abd and pelvis Discharge Counseling Counseled pt/family regarding diagnosis, test results, home care, follow up needs ED Critical Care Critical Care No If Critical Care minutes are documented, the time involved in the performance of seperately reportable procedures was not counted toward critical care time documented. I directly delivered medical care to this critically ill and/or injured patient. Timely evaluation and treatment was necessary to address the significant organ system(s) dysfunction present in this patient. (Destinee Fernandes MD) Departure Disposition DC Home or Self Care(routine) Clinical Impression Primary Impression: Hematuria Qualifiers: Hematuria type: unspecified type Qualified Code: R31.9 - Hematuria, unspecified Secondary Impressions: Rt flank pain Patient Instructions DI for Flank Pain Comments pt left prior to d/c (Connor Paula MD) at 1958 at 2051
[2017-07-21 20:12] LABS: HEMOGLOBIN 14.7 g/dL (14.1-18.0); LYMPH % 24.9 % (10-50)
[2017-07-21 20:41] VITALS: BP 150/77
[2017-07-21 20:41] LABS: AMPHETAMINES/METAMPHETAMINES NEGATIVE ng/mL (<1000)
--- OUTSIDE RECORDS SUMMARY | 2017-07-22 05:34 | External Medical Summary Rpt | CCD ---
Author Author , MARCELLA NARANJO Address Unknown Phone [email or web address] Care Team Providers Care It Manager Name Role Phone PANG, PANG Unavailable Unavailable [facility] Unavailable Unavailable PHYSICIANS, [facility] DEREK REED Unavailable Unavailable JR FITZPATRICK FULLER, Unavailable Unavailable MIKI MICHELLE Unavailable Unavailable [facility] Unavailable Unavailable INC, [facility] DOWD, DOWD Unavailable Unavailable [facility], DOWD Unavailable Unavailable [facility], Unavailable Unavailable [facility] Unavailable Unavailable IM[facility]ING [facility], [facility], Unavailable Unavailable PLL[facility], [facility] RENUSCH, RENUSCH Unavailable Unavailable MARILY, Unavailable Unavailable MARILY NAVARRETE, Unavailable Unavailable [facility] Purpose Continuity of Care Document - 06-10-2014 through 2016 Problems Code Diagnosis DOS Provider Status [id number] OTHER LONG 05-18-2017 [facility] CURRENT INC DRUG THERAPY G8929 OTHER 05-11-2017 [facility] PAIN [facility] I10 ESSENTIAL 05-11-2017 [facility] HYPERTENSIO INC N M545 LOW BACK 05-11-2017 [facility] Z720 TOBACCO USE 05-11-2017 [facility] INC Z81244 PAIN IN 04-06-2017 [facility] 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 04-06-2017 [facility] NEC [id number] CONTUSION 04-06-2017 [facility] LOWER BACK PHYS[facility], & PELVIS PLLC INITIAL ENCOUNTER [id number] STRAIN 04-06-2017 [facility] MUSCLE [facility] FASCIA & PLLC TENDON LOW BACK INITIAL N23 UNSPECIFIED 03-25-2017 [facility] RENAL [facility], COLIC PLLC R1012 LEFT UPPER 03-25-2017 [facility] PAIN INC R109 UNSPECIFIED 03-25-2017 [facility] ABDOMINAL [facility], PAIN PLLC O97712 PAIN IN 03-16-2017 [facility]OULD[facility] B24733 PAIN IN 03-16-2017 [facility] Y62581 PAIN IN 03-16-2017 [facility]LE [facility] [id number] CONTUSION 03-16-2017 [facility] OF LEFT HIP PHYSICIANS, INITIAL PLLC ENCOUNTER [id number] CONTUSION 03-16-2017 [facility] OF LEFT PHYSICIANS, LOWER LEG PLLC INITIAL ENCOUNTER [id number] CONTUSION 03-16-2017 [facility] LEFT [facility] [...] 02-02-2017 [facility] IA BILATERAL M5416 RADICULOPAT 01-17-2017 [facility] R768 OTH SPEC 01-17-2017 [facility] AL FIND IN SERUM K219 GASTRO-ESOP 01-14-2017 [facility] REFLUX [facility], DISEASE PLLC WITHOUT ESOPHAGITIS R4702 DYSPHASIA 01-14-2017 [facility] [id number] UNS FB 01-14-2017 [facility] PHARYNX [facility], CAUSING OTH PLLC INJURY INIT ENC Z0000 ENCOUNTER 01-09-2017 [facility] MED EXAM INC W/O ABNORMAL FIND M5116 INTERVERTEB 01-07-2017 [facility] D/O INC W/RADICULOP ATHY LUMB RGN J209 ACUTE 12-28-2016 [facility] UNSPECIFIED INC R0602 SHORTNESS 12-28-2016 [facility] [id number] SPRAIN 12-10-2016 [facility] [...] ia de te s n re d AZ 50 09 10 6. 5 00 RI Ac IT 11 -1 -1 00 00 TE ti HR 10 7- 3- 0 01 ve OM 78 20 20 19 AI YC 76 17 17 99 D IN 6 37 PH AR 25 MA 0 CY MG #3 TA 93 BL 8 ET MD 59 09 10 10 5 00 RI Ac ED 74 -1 -1 .0 00 TE ti NI 60 7- 3- 00 01 ve SO 17 20 20 19 AI NE 50 17 17 99 D 6 38 PH 20 AR MA MG CY TA #3 BL 93 ET 8 HY 00 09 10 [address] 40 -0 -0 .0 00 TE ti OC 60 8- 6- 00 01 ve OD 12 20 20 19 AI ON 30 17 17 88 D -A 1 05 PH CE AR TA MA AL CY NO PH #3 EN 93 8 5- 32 5 LI 00 09 09 30 30 00 EA Ac SI 37 -0 -[address] ti NO 82 3- 9- 00 00 SI ve MD 07 20 20 50 DE IL 41 17 17 01 0 95 PH 10 AR MA MG CY TA OF BL CY ET NT HI AN A IN C ES 65 08 09 30 30 00 EA Ac CI 86 -1 -[address] ti TA 20 1- 8- 00 00 SI ve LO 37 20 20 49 DE MD 40 17 17 76 AM 1 51 PH AR 10 MA CY MG OF TA CY BL NT ET HI AN A IN C CL 00 08 09 60 30 00 EA Ac ON 22 -1 -[address] ti AZ 83 6- 8- 00 00 SI ve EP 00 20 20 49 DE AM 35 17 17 47 0 77 PH 0. AR 5 MA MG CY TA OF BL CY ET NT HI AN A IN C GA 67 08 09 60 30 00 EA Ac BA 87 -1 -[address] ti PE 70 6- 8- 00 00 SI ve NT 22 20 20 49 DE IN 30 17 17 47 5 78 PH 30 AR 0 MA MG CY CA OF PS CY UL NT E HI AN A IN C HY 00 08 09 [address] 40 -1 -[address] ti OC 60 1- 8- 00 00 SI ve OD 12 20 20 49 DE ON 30 17 17 76 -A 5 00 PH CE AR TA MA AL CY NO PH OF EN CY NT 5- HI 32 AN 5 A IN C LI 00 07 08 30 30 00 EA Ac SI 18 -3 -[address] ti NO 50 1- 5- 00 00 SI ve MD 61 20 20 49 DE IL 01 17 17 63 0 26 PH 10 AR MA MG CY TA OF BL CY ET NT HI AN A IN C BU 07 08 60 30 00 EA Ac MD 59 -3 -[address] ti OP 13 1- 5- 00 00 SI ve IO 54 20 20 49 DE N 10 17 17 34 HC 5 91 PH L AR SR MA CY 15 0 OF MG CY NT TA HI BL AN ET A IN C CL 07 08 60 30 00 EA Ac [...] 47 CE 0 84 PH TA AR AL MA NO CY PH EN OF CY 7. NT 5- HI 32 AN 5 A IN C BU 60 07 07 60 30 00 EA Ac MD 50 -0 -[address] ti [...] 50 1- 8- 00 00 SI ve MD 61 20 20 48 DE IL 01 [...] 5 80 PH CE AR TA MA AL CY NO PH OF CY 7. NT [...] 50 7- 0- 00 00 SI ve MD 61 20 20 48 DE IL 01 17 17 65 0 64 PH 10 AR MA MG CY TA OF BL CY ET NT HI AN A IN C CL 00 06 06 60 30 00 EA Ac ON 18 -0 -[address] ti AZ 50 6- 0- 00 00 SI ve EP 06 20 20 49 DE AM 30 17 17 03 5 04 PH 0. AR 5 MA MG CY TA OF BL CY ET NT HI AN A IN C HY 00 06 06 [address] 40 -0 -[address] ti OC 60 6- 0- 00 00 SI ve OD 12 20 20 49 DE ON 40 17 17 03 -A 5 05 PH CE AR TA MA AL CY NO PH OF CY 7. NT 5- HI 32 AN 5 A IN C BU 60 05 06 60 30 00 EA Ac MD 50 -1 -[address] ti OP 50 8- 6- 00 00 SI ve IO 15 20 20 48 DE N 80 17 17 65 HC 1 70 PH L AR 75 MA CY MG OF TA CY BL NT ET HI AN A IN C HY 00 05 06 [address] 40 -0 -[address] ti OC 60 8- 2- 00 00 SI ve OD 12 20 20 48 DE ON 40 17 17 65 -A 5 65 PH CE AR TA MA AL CY NO PH OF CY 7. NT [...] 50 8- 2- 00 00 SI ve MD 61 20 20 48 DE IL 01 [...] 04 05 60 30 00 WA Ac MD 50 -1 -1 .0 00 L- ti [...] MG CY TA #5 BL 91 ET LI 54 04 05 30 30 00 WA Ac SI 45 -1 -0 .0 00 L- ti NO 80 2- 5- 00 07 MA ve MD 99 20 20 48 RT IL 71 [...] 91 50 PO WD HY 00 04 05 90 [address] 40 -1 -0 .0 00 TE ti OC 60 2- 5- 00 01 ve OD 12 20 20 17 AI ON 40 17 17 96 D -A 1 89 PH CE AR TA MA AL CY NO PH #3 93 7. 8 5- 32 5 PA 68 04 05 30 30 00 OR Ac NT 64 -0 -0 .0 00 L- ti OP 50 9- 5- 00 07 MA ve RA 49 20 20 48 RT ZO 27 17 17 12 LE 0 14 PH AR SO MA D CY DR #5 40 91 MG TA B HY 00 04 04 30 [address] 40 -0 -2 .0 00 L- ti OC 60 4- 8- 00 02 MA ve OD 12 20 20 23 RT ON 30 17 17 98 -A 1 04 PH CE AR TA MA AL CY NO PH #5 EN 91 5- 32 5 GA 53 04 04 90 30 00 OR Ac BA 74 -0 -2 .0 00 L- ti PE 60 4- 8- 00 07 MA ve NT 10 20 20 48 RT IN 10 17 17 04 5 51 PH 10 AR 0 MA MG CY CA #5 PS 91 UL E MD 00 04 04 10 5 00 OR Ac ED 14 -0 -2 .0 00 L- ti NI 39 4- 8- 00 07 MA ve SO 73 20 20 48 RT NE 80 17 17 00 5 75 PH 20 AR MA MG CY TA #5 BL 91 ET AM 00 03 04 20 10 00 OR Ac OX 78 -2 -2 .0 00 L- ti -C 11 3- 1- 00 07 MA ve LA 85 20 20 47 RT V 22 17 17 82 87 0 43 PH 5- AR 12 MA 5 CY MG #5 TA 91 BL ET BE 68 03 04 30 10 00 OR Ac NZ 38 -2 -2 .0 00 [...] AI ZA 75 17 17 38 D MD 0 05 PH IN AR E MA 10 CY MG #3 93 TA 8 BL ET NA 68 03 03 30 15 00 RI Ac MD 46 -0 -3 .0 00 TE ti OX 20 6- 1- 00 01 ve EN 19 20 20 17 AI 00 17 17 38 D 50 1 06 PH 0 AR MG MA CY TA BL #3 ET 93 8 AZ 59 02 03 6. 5 00 WA Ac IT 76 -1 -1 00 00 L- ti HR 23 6- 7- 0 07 MA ve OM 06 20 20 47 RT YC 00 17 17 10 IN 1 53 PH AR 25 MA 0 CY MG #5 TA 91 BL ET Results Labs Lab Lab Date Result Refere Interp Status Commen Order Detail nces retati t Range on SYPHILIS IGG TEST (EIA) (06-10-2014 08:00) Science Analyst: Sadie Marquez MD FCAP Lab: [facility] Division of Laboratory Services Lab Address: [address] [place] [address], [address] [place] [address] 06-10-2014 8:00 am Specimen Collection Start Date/Time: Chief Deputy Coroner: Specimen Ming'valdez 06-15-2014 9:29 am Date/Time: [facility]ing Phys[facility] 06-16-2014 8:31 am Results Rpt/Status Change Date/Time: [...] Health Insurance Portability and Accountability Act. CHART [id number] complet NUMBER 014 ed 08:00 SPECIME BLOOD complet N 014 ed SOURCE 08:00 PURPOSE ROUTINE complet OF 014 ed EXAM 08:00 ETHNICI W complet TY 014 ed 08:00 COLLECT N/A complet OR 014 ed 08:00 Procedures Procedure DOS Code Location Performer Comment DRUG TEST 22901 [facility] QUAL DIR INC INC OPTICAL OBS PER DAY THERAPEUT 93458 [facility] IC [facility] PROPHYLAC INC INC TIC/DX INJECTION SUBQ/IM DRUG TEST 04046 [facility] QUAL DIR INC INC OPTICAL OBS PER DAY DRUG TEST 29033 [facility] QUAL DIR INC INC OPTICAL OBS PER DAY RADEX 76530 [facility] SPINE [facility] LUMBOSACR INC INC AL MINIMUM 4 VIEWS RADEX 44899 [facility] SACRUM & 7 [facility] COCCYX INC INC MINIMUM 2 VIEWS RADIOLOGI 74878 [facility] C [facility] EXAMINATI INC INC ON PELVIS 1/2 VIEWS DRUG TEST 61710 [facility] QUAL DIR INC INC OPTICAL OBS PER DAY THER 58160 [facility] PROPH/DX 7 [facility] NJX EA INC INC SEQL IV PUSH SBST/DRUG FAC BLOOD 57739 [facility] COUNT [facility] COMPLETE INC INC AUTO&AUTO DIFRNTL WBC FINAL G9551 [facility] REED REPR ABD 7 MEDICAL IMAG STS IMAGING W/[place]: [place] [address] [facility] INFUSION [facility] THERAPY/P INC INC ROPHYLAXI S /DX 1ST TO 1 HR THERAPEUT 23819 [facility] IC [facility] INJECTION INC INC IV PUSH EACH NEW DRUG URNLS DIP 88085 [facility] STICK/TAB INC INC LET RGNT AUTO W/O MICROSCOP Y FINAL G9638 [facility] REED REPORTS 7 MEDICAL W/O DOC IMAGING 1/MORE ASS DOSE REDUCTION TECH COMPREHEN 23507 [facility] SIVE [facility] [place] [address] K[facility]SIE REED ABDOMEN & 7 MEDICAL PELVIS IMAGING W/O ASS CONTRAST MATERIAL RADEX 46601 [facility] HIPS [facility] BILATERAL INC INC WITH PELVIS 2 VIEWS RADEX 34321 [facility] SACRUM & 7 [facility] COCCYX INC INC MINIMUM 2 VIEWS RADEX 25196 K[facility] PANG HIPS 7 MEDICAL BILATERAL IMAGING WITH ASS PELVIS 3-4 VIEWS RADEX 16350 [facility] ANKLE [facility] COMPLETE INC INC MINIMUM 3 VIEWS DRUG TEST G0481 [facility] DEFINITV 7 [facility] DR ID INC INC METH P DAY 8-14 DRUG CL DRUG TEST 66222 [facility] PRSMV [facility] QUAL DIR INC INC OPTICAL OBS PER DAY BASIC 09705 [facility] METABOLIC 7 [facility] PANEL INC INC CALCIUM TOTAL CT SOFT 13780 K[facility] PANG TISSUE 7 MEDICAL NECK IMAGING W/CONTRAS ASS T MATERIAL BLOOD 63999 [facility] COUNT 7 [facility] COMPLETE INC INC AUTO&AUTO DIFRNTL WBC FINAL G9638 [facility] PANG REPORTS 7 MEDICAL W/O DOC IMAGING 1/MORE ASS DOSE REDUCTION TECH FINAL RPT G[address]/MRI 7 MEDICAL CHEST/NCK IMAGING /U/S NO ASS THR NOD<1.0 CM THERAPEUT 59869 [facility] IC PX 1/> 7 [facility] AREAS INC INC EACH 15 MIN EXERCISES DRUG TEST 61756 [facility] PRSMV [facility] QUAL DIR INC INC OPTICAL OBS PER DAY DRUG 63337 [facility] SCREENING 7 [facility] OPIOIDS INC INC & OPIATE ANALOGS 5/MORE THERAPEUT 63147 [facility] IC PX 1/> 7 [facility] AREAS INC INC EACH 15 MIN EXERCISES OPHTH 32325 [facility] 7 XM&EVAL COMPRE NEW PT 1/> VST THERAPEUT 78479 [facility] IC PX 1/> 7 [facility] AREAS INC INC EACH 15 MIN EXERCISES DRUG 84737 [facility] SCREENING 7 [facility] OPIOIDS INC INC & OPIATE ANALOGS 5/MORE DRUG TEST 35622 [facility] PRSMV 7 [facility] QUAL DIR INC INC OPTICAL OBS PER DAY PHYSICAL 97791 [facility] THERAPY 7 [facility] EVALUATIO INC INC N MOD COMPLEX 30 MINS RADIOLOGI 59599 [facility] C 7 MEDICAL EXAMINATI IMAGING ON NECK ASS SOFT TISSUE CUL BACT 48787 [facility] XCPT [facility] URINE INC INC BLOOD/[place] [address] [facility] STREPTOCO 7 [facility] CCUS INC INC GROUP A ANTINUCLE 53522 [facility] AR 7 [facility] [place] [address] [facility] BLOOD/URI 7 [facility] C ACID INC INC C-REACTIV 89664 [facility] E PROTEIN 7 [facility] INC INC HEMOGLOBI 88903 [facility] N 7 [facility] GLYCOSYLA INC INC MONSERRAT A1C BLOOD 90542 [facility] COUNT 7 [facility] COMPLETE INC INC AUTO&AUTO DIFRNTL WBC LIPID 39188 [facility] PANEL 7 [facility] INC INC RHEUMATOI 84440 WAN Varela FACTOR 7 [facility] QUANTITAT INC INC JOAN SEDIMENTA 33250 [facility] TIJOSHUA RATE 7 [facility] RBC INC INC NON-AUTOM ATED DRUG TEST 50437 [facility] PRSMV 7 [facility] QUAL DIR INC INC OPTICAL OBS PER DAY COMPREHEN 67465 [facility] SIVE 7 [facility] [place] [address] [facility] FREE 7 [facility] [place] [address] [facility] THYROID 7 [facility] STIMULATI INC INC NG HORMONE TSH URNLS DIP 69001 [facility] STICK/TAB INC INC LET REAGENT AUTO MICROSCOP Y RADIOLOGI 24149 [facility] EXAM 7 MEDICAL CHEST 2 IMAGING VIEWS ASS FRONTAL&L ATERAL IAADIADOO 97350 [facility] STREPTOCO INC INC CCUS GROUP A IAADIADOO 51775 [facility] INFLUENZA INC INC Encounters Encounter Start End Date Code Location Performer Type Date HOSPITAL WAN Guzman [address] [facility] OUTPATIEN INC T HOSPITAL WAN Guzman [address] [facility] OUTPATIEN [facility] T EMERGENCY 18886 [facility] Guzman 7 PHYSICIAN DEPARTMEN S, [facility] T VISIT HIGH/URGE NT SEVERITY EMERGENCY 82904 [facility]/MODER SEVERITY HOSPITAL WAN Guzman [address] [facility] OUTPATIEN [facility] WAN Guzman [address] [facility] OUTPATIEN [facility]GENC[facility] 62876 WAN 7 7 [facility] T VISIT LOW/MODER SEVERITY HOSPITAL WAN - Megan [address] [facility] OUTPATIEN [facility]ERGENC[facility] 72514 MARRY Guzman 7 PHYSICIAN DEPARTMEN S, [facility] HIGH/URGE NT SEVERITY HOSPITAL WAN Guzman [address] [facility] OUTPATIEN [facility] WAN - Megan [address] [facility] OUTPATIEN [facility] EMERGENCY 28397 MARRY [place] DEPT 7 7 PHYSICIAN VISIT S, PLLC HIGH SEVERITY& THREAT FUNCJ EMERGENCY 04226 Megan YANG 7 [facility] T VISIT HIGH/URGE NT SEVERITY EMERGENCY 86913 WAN 7 7 [facility] T VISIT LOW/MODER SEVERITY HOSPITAL WAN Guzman 7 [facility]PATIEN [facility] T HOSPITAL WAN Guzman [address] [facility] OUTPATIEN [facility] T EMERGENCY 57004 MARRY FERREIRA DEPT 7 7 PHYSICIAN VISIT S, PLLC HIGH SEVERITY& THREAT FUNCJ EMERGENCY 95594 WAN 7 7 [facility] T VISIT LOW/MODER SEVERITY HOSPITAL WAN - 7 7 [facility] OUTPATIEN [facility] WAN - 7 7 [facility] WAN - 7 7 [facility] WAN - 7 7 [facility] OFF[facility] 54409 [facility] 7 7 PHYSICIAN T VISIT S GROUP 25 MINUTES HOSPITAL WAN - 7 7 [facility] OUTPATIEN [facility] WAN - 7 7 [facility] OUTPATIEN [facility] EM[facility]GENC[facility] 52105 MARRY TEMPLE 7 7 PHYSICIAN U [facility] S, [facility] T VISIT HIGH/URGE NT SEVERITY EMERGENCY 00916 WAN 7 7 MEM H[facility]P [facility] T VISIT LOW/MODER SEVERITY HOSPITAL WAN - 7 7 [facility] 54610 WAN 7 7 MEM [facility] T VISIT LOW/MODER SEVERITY HOSPITAL WAN - 7 7 [facility] 60900 WAN 7 7 [facility] T VISIT LOW/MODER SEVERITY HOSPITAL WAN - 7 7 MEM H[facility]P OUTPATIEN [facility] T EMERGENCY 11012 [facility] R[facility]AR[facility] 7 7 EMERGENCY N [facility] T VISIT PHYSICIAN MODERATE S SEVERITY OFFICE 55462 WAN NAVAS 7 7 MEM HOSP T [facility] 10 INC [facility] H[facility] WAN - 7 7 [facility] T
--- OUTSIDE RECORDS SUMMARY | 2017-07-22 05:34 | External Medical Summary Rpt | CCD ---
Author Author , MARCELLA NARANJO Address Unknown Phone [email or web address] 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 Name Role Phone PANG, PANG Unavailable Unavailable [facility] Unavailable Unavailable PHYSICIANS, [facility] DEREK REED Unavailable Unavailable JR FITZPATRICK FULLER, Unavailable Unavailable MIKI MICHELLE Unavailable Unavailable [facility] Un[facility] Unavailable [facility], [facility] DOWD, DOWD Unavailable Unavailable [facility], DOWD Unavailable Unavailable [facility], Unavailable Unavailable [facility] Unavailable Unavailable [facility]ING [facility], [facility], Unavailable Unavailable PLL[facility], [facility] RENUSCH, RENUSCH Unavailable Unavailable MARILY, Unavailable Unavailable MARILY NAVARRETE, Unavailable Unavailable [facility] Purpose Continuity of Care Document - 06-10-2014 through 2016 Problems Code Diagnosis DOS Provider Status [id number] OTHER LONG 05-18-2017 [facility] CURRENT INC DRUG THERAPY G8929 OTHER 05-11-2017 [facility]RONIC [facility] PAIN [facility] I10 ESSENTIAL 05-11-2017 [facility] HYPERTENSIO INC N M545 LOW BACK 05-11-2017 [facility] PAIN [facility] Z720 TOBACCO USE 05-11-2017 [facility] INC M01658 PAIN IN 04-06-2017 [facility] 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 04-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 [facility] EAL [facility] DISORDERS [facility] NEC [id number] CONTUSION 04-06-2017 [facility] LOWER BACK PHYSICIANS, & PELVIS PLLC INITIAL ENCOUNTER [id number] STRAIN 04-06-2017 [facility] MUSCLE [facility], FASCIA & PLLC TENDON LOW BACK INITIAL N23 UNSPECIFIED 03-25-2017 [facility] RENAL [facility], COLIC PLLC R1012 LEFT UPPER 03-25-2017 [facility] PAIN INC R109 UNSPECIFIED 03-25-2017 [facility] ABDOMINAL [facility], PAIN PLLC L24064 PAIN IN 03-16-2017 [facility]ICAL SHOULDER [facility] N10887 PAIN IN 03-16-2017 [facility]IP [facility] D15746 PAIN IN 03-16-2017 [facility] ANKLE [facility] [id number] CONTUSION 03-16-2017 [facility] OF LEFT HIP PHYSICIANS, INITIAL PLLC ENCOUNTER G0091WS CONTUSION 03-16-2017 [facility] OF LEFT PHYSICIANS, LOWER LEG PLLC INITIAL ENCOUNTER [id number] CONTUSION 03-16-2017 [facility] [...] IA BILATERAL M5416 RADICULOPAT 01-17-2017 [facility] HY LUMBAR PHYS[facility]ANS [facility] GROUP R768 OTH SPEC 01-17-2017 [facility] ABNORMAL PHYSICIANS IMMUNOLOGIC GROUP AL FIND IN SERUM K219 GASTRO-ESOP 01-14-2017 [facility] H REFLUX [facility], DISEASE PLLC WITHOUT ESOPHAGITIS R4702 DYSPHASIA 01-14-2017 [facility] [id number] UNS FB 01-14-2017 [facility] PHARYNX [facility], CAUSING OTH PLLC INJURY INIT ENC Z0000 ENCOUNTER 01-09-2017 [facility] MED EXAM INC W/O ABNORMAL FIND M5116 INTERVERTEB 01-07-2017 [facility] D/O INC W/RADICULOP ATHY LUMB RGN J209 ACUTE 12-28-2016 [facility] UNSPECIFIED INC R0602 SHORTNESS 12-28-2016 [facility] G670CWH SPRAIN 12-10-2016 [facility] CERVICAL PHYSICIANS [...] MG #3 TA 93 BL 8 ET TN 59 09 10 10 5 00 RI [...] 1 05 PH CE AR TA MA SC CY NO PH #3 EN 93 8 5- 32 5 LI 00 09 09 30 30 00 EA Ac SI 37 -0 -[address] ti NO 82 3- 9- 00 00 SI ve TN 07 20 20 50 DE IL 41 17 17 01 0 95 PH 10 AR MA MG CY TA OF BL CY ET NT HI AN A IN C ES 65 08 09 30 30 00 EA Ac CI 86 -1 -[address] ti TA 20 1- 8- 00 00 SI ve LO 37 20 20 49 DE TN 40 17 17 76 AM 1 51 [...] 5 00 PH CE AR TA MA SC CY NO PH OF EN CY NT 5- HI 32 AN 5 A IN C LI 00 07 08 30 30 00 EA Ac SI 18 -3 -[address] ti NO 50 1- 5- 00 00 SI ve TN 61 20 20 49 DE IL 01 17 17 63 0 26 PH 10 AR MA MG CY TA OF BL CY ET NT HI AN A IN C BU 07 08 60 30 00 EA Ac TN 59 -3 -[address] ti [...] 47 CE 0 84 PH TA AR SC MA NO CY PH EN OF CY 7. NT 5- HI 32 AN 5 A IN C BU 60 07 07 60 30 00 EA Ac TN 50 -0 -[address] ti [...] 50 1- 8- 00 00 SI ve TN 61 20 20 48 DE IL 01 [...] 5 80 PH CE AR TA MA SC CY NO PH OF CY 7. NT [...] 50 7- 0- 00 00 SI ve TN 61 20 20 48 DE IL 01 [...] 5 05 PH CE AR TA MA SC CY NO PH OF CY 7. NT 5- HI 32 AN 5 A IN C BU 60 05 06 60 30 00 EA Ac TN 50 -1 -[address] ti [...] 5 65 PH CE AR TA MA SC CY NO PH OF CY 7. NT [...] 50 8- 2- 00 00 SI ve TN 61 20 20 48 DE IL 01 [...] 04 05 60 30 00 WA Ac TN 50 -1 -1 .0 00 L- ti [...] 80 2- 5- 00 07 MA ve TN 99 20 20 48 RT IL 71 [...] 1 89 PH CE AR TA MA SC CY NO PH #3 93 7. 8 5- 32 5 PA 68 04 05 30 30 00 VA Ac NT 64 -0 -0 .0 00 L- ti OP 50 9- 5- 00 07 MA ve RA 49 20 20 48 RT ZO 27 17 17 12 LE 0 14 PH AR SO MA D CY DR #5 40 91 MG TA B HY 00 04 04 [address] 40 -0 -2 .0 00 L- ti OC 60 4- 8- 00 02 MA ve OD 12 20 20 23 RT ON 30 17 17 98 -A 1 04 PH CE AR TA MA SC CY NO PH #5 EN 91 5- 32 5 GA 53 04 04 90 30 00 VA Ac BA 74 -0 -2 .0 00 L- ti PE 60 4- 8- 00 07 MA ve NT 10 20 20 48 RT IN 10 17 17 04 5 51 PH 10 AR 0 MA MG CY CA #5 PS 91 UL E TN 00 04 04 10 5 00 VA Ac ED 14 -0 -2 .0 00 L- ti NI 39 4- 8- 00 07 MA ve SO 73 20 20 48 RT NE 80 17 17 00 5 75 PH 20 AR MA MG CY TA #5 BL 91 ET AM 00 03 04 20 10 00 VA Ac OX 78 -2 -2 .0 00 L- ti -C 11 3- 1- 00 07 MA ve LA 85 20 20 47 RT V 22 17 17 82 87 0 43 PH 5- AR 12 MA 5 CY MG #5 TA 91 BL ET BE 68 03 04 30 10 00 VA Ac NZ 38 -2 -2 .0 00 [...] AI ZA 75 17 17 38 D TN 0 05 PH IN AR E MA 10 CY MG #3 93 TA 8 BL ET NA 68 03 03 30 15 00 RI Ac TN 46 -0 -3 .0 00 TE ti [...] on SYPHILIS IGG TEST (EIA) (06-10-2014 08:00) Direct Mail Coordinator: Sadie Marquez MD FCAP Lab: [facility] Division of Laboratory Services Lab Address: [address] [place] [address], [address] [place] [address] 06-10-2014 8:00 am Specimen Collection Start Date/Time: Proposal Consultant: Specimen Ming'valdez 06-15-2014 9:29 am Date/Time: Ordering Physician: [facility] 06-16-2014 8:31 am Results Rpt/Status Change [...] Health Insurance Portability and Accountability Act. CHART [id number] complet NUMBER 014 ed 08:00 SPECIME BLOOD complet N 014 ed SOURCE 08:00 PURPOSE ROUTINE complet OF 014 ed EXAM 08:00 ETHNICI W complet TY 014 ed 08:00 COLLECT N/A complet OR 014 ed 08:00 Procedures Procedure DOS Code Location Performer Comment DRUG TEST 48854 [facility]V [facility] QUAL DIR INC INC OPTICAL OBS PER DAY THERAPEUT 07193 [facility] IC [facility] PROPHYLAC INC INC TIC/DX INJECTION SUBQ/IM DRUG TEST 72115 [facility] QUAL DIR INC INC OPTICAL OBS PER DAY DRUG TEST 75692 [facility]V [facility] QUAL DIR INC INC OPTICAL OBS PER DAY RADEX 30328 [facility] SPINE [facility] LUMBOSACR INC INC AL MINIMUM 4 VIEWS RADEX 18529 [facility] SACRUM & [facility] COCCYX INC INC MINIMUM 2 VIEWS RADIOLOGI 19719 [facility] C [facility] EXAMINATI INC INC ON PELVIS 1/2 VIEWS DRUG TEST 07741 [facility] QUAL DIR INC INC OPTICAL OBS PER DAY THER 93672 [facility] PROPH/DX [facility] NJX EA INC INC SEQL IV PUSH SBST/DRUG FAC BLOOD 15903 [facility] COUNT [facility] COMPLETE INC INC AUTO&AUTO DIFRNTL WBC FINAL G9551 [facility] REED REPR ABD 7 MEDICAL IMAG STS IMAGING W/[place]: [place] [address] [facility] INFUSION [facility] THERAPY/P INC INC ROPHYLAXI S /DX 1ST TO 1 HR THERAPEUT 85650 [facility] IC [facility] INJECTION INC INC IV PUSH EACH NEW DRUG URNLS DIP 06895 [facility] STICK/TAB INC INC LET RGNT AUTO W/O MICROSCOP Y FINAL G9638 K[facility]SIE REED REPORTS 7 MEDICAL W/O DOC IMAGING 1/MORE ASS DOSE REDUCTION TECH COMPREHEN 19326 [facility] SIVE [facility] [place] [address] KELSIE REED ABDOMEN & 7 MEDICAL PELVIS IMAGING W/O ASS CONTRAST MATERIAL RADEX 81131 [facility] HIPS [facility] BILATERAL INC INC WITH PELVIS 2 VIEWS RADEX 59822 [facility] SACRUM & 7 [facility] COCCYX INC INC MINIMUM 2 VIEWS RADEX 43193 K[facility]E PANG HIPS 7 MEDICAL BILATERAL IMAGING WITH ASS PELVIS 3-4 VIEWS RADEX 72509 [facility] ANKLE [facility] COMPLETE INC INC MINIMUM 3 VIEWS DRUG TEST G0481 [facility] DEFINITV 7 [facility] ID INC INC METH P DAY 8-14 DRUG CL DRUG TEST 19466 [facility] PRSMV [facility] QUAL DIR INC INC OPTICAL OBS PER DAY BASIC 88908 [facility] METABOLIC 7 [facility] PANEL INC INC CALCIUM TOTAL CT SOFT 45905 KELSIE PANG TISSUE 7 MEDICAL NECK IMAGING W/CONTRAS ASS T MATERIAL BLOOD 00771 [facility] COUNT 7 [facility] COMPLETE INC INC AUTO&AUTO DIFRNTL WBC FINAL G9638 K[facility]SIE PANG REPORTS 7 MEDICAL W/O DOC IMAGING 1/MORE ASS DOSE REDUCTION TECH FINAL RPT G[address]/MRI 7 MEDICAL CHEST/NCK IMAGING /U/S NO ASS THR NOD<1.0 CM THERAPEUT 75622 [facility] IC PX 1/> 7 [facility] AREAS INC INC EACH 15 MIN EXERCISES DRUG TEST 06188 [facility] PRSMV [facility] QUAL DIR INC INC OPTICAL OBS PER DAY DRUG 42391 [facility] SCREENING 7 [facility] OPIOIDS INC INC & OPIATE ANALOGS 5/MORE THERAPEUT 75777 [facility] IC PX 1/> 7 [facility] AREAS INC INC EACH 15 MIN EXERCISES OPHTH 47138 [facility] 7 XM&EVAL COMPRE NEW PT 1/> VST THERAPEUT 21606 [facility] IC PX 1/> 7 [facility] AREAS INC INC EACH 15 MIN EXERCISES DRUG 45738 [facility] SCREENING 7 [facility] OPIOIDS INC INC & OPIATE ANALOGS 5/MORE DRUG TEST 76157 [facility] PRSMV 7 [facility] QUAL DIR INC INC OPTICAL OBS PER DAY PHYSICAL 23185 [facility] THERAPY 7 [facility] EVALUATIO INC INC N MOD COMPLEX 30 MINS RADIOLOGI 78927 [facility] C 7 MEDICAL EXAMINATI IMAGING ON NECK ASS SOFT TISSUE CUL BACT 86061 [facility] XCPT 7 [facility] URINE INC INC BLOOD/[place] [address] [facility] STREPTOCO 7 [facility] CCUS INC INC GROUP A ANTINUCLE 58527 [facility] AR 7 [facility] [place] [address] [facility] BLOOD/URI 7 [facility] C ACID INC INC C-REACTIV 93730 [facility] E PROTEIN 7 [facility] INC INC HEMOGLOBI 36695 [facility] N 7 [facility] GLYCOSYLA INC INC MONSERRAT A1C BLOOD 51284 [facility] COUNT 7 [facility] COMPLETE INC INC AUTO&AUTO DIFRNTL WBC LIPID 94975 [facility] PANEL [facility] INC INC RHEUMATOI 93604 WAN aVrela FACTOR 7 [facility] QUANTITAT INC INC JOAN SEDIMENTA 88956 [facility] TIJOSHUA RATE 7 [facility] RBC INC INC NON-AUTOM ATED DRUG TEST 56208 [facility] PRSMV 7 [facility] QUAL DIR INC INC OPTICAL OBS PER DAY COMPREHEN 97380 [facility] SIVE 7 [facility] [address] [facility] FREE 7 [facility] [place] [address] [facility] THYROID 7 [facility] STIMULATI INC INC NG HORMONE TSH URNLS DIP 39663 [facility] STICK/TAB INC INC LET REAGENT AUTO MICROSCOP Y RADIOLOGI 50658 [facility] EXAM 7 MEDICAL CHEST 2 IMAGING VIEWS ASS FRONTAL&L ATERAL IAADIADOO 96462 [facility] 7 [facility] STREPTOCO INC INC CCUS GROUP A IAADIADOO 93553 [facility] 7 [facility] MEM [facility] INFLUENZA INC INC Encounters Encounter Start End Date Code Location Performer Type Date HOSPITAL W[facility] 7 [facility] OUTPATIEN INC T HOSPITAL WAN Guzman 7 [facility] OUTPATIEN [facility] T EMERGENCY 34767 [facility] Guzman 7 PHYSICIAN DEPARTMEN S, [facility] T VISIT HIGH/URGE NT SEVERITY EMERGENCY 09225 [facility]OW/MODER SEVERITY HOSPITAL WAN Guzman 7 [facility]PATIEN [facility] H[facility]ITAL WAN Guzman 7 [facility] OUTPATIEN [facility] EMERGENCY 43301 WAN 7 7 [facility] T VISIT LOW/MODER SEVERITY HOSPITAL WAN - Megan 7 [facility] OUTPATIEN [facility] EMERGENCY 21447 M[facility]Y Guzman 7 [facility] HIGH/URGE NT SEVERITY HOSPITAL WAN Guzman 7 [facility] OUTPATIEN [facility] HOSPITAL WAN - Megan 7 [facility] OUTPATIEN [facility] EMERGENCY 79210 [facility] [place] DEPT 7 7 PHYSICIAN VISIT S, PLLC HIGH SEVERITY& THREAT FUNCJ EMERGENCY 87816 Megan YANG 7 [facility] T VISIT HIGH/URGE NT SEVERITY EMERGENCY 03058 WAN 7 7 [facility] T VISIT LOW/MODER SEVERITY HOSPITAL WAN Guzman 7 [facility]EN [facility] T HOSPITAL WAN Guzman 7 [facility] OUTPATIEN [facility] T EMERGENCY 99666 MARRY FERREIRA DEPT 7 7 PHYSICIAN VISIT S, PLLC HIGH SEVERITY& THREAT FUNCJ EMERGENCY 56998 WAN 7 7 [facility] T VISIT LOW/MODER SEVERITY HOSPITAL WAN - 7 7 [facility]IEN [facility] HOSPITAL WAN - 7 7 [facility] WAN - 7 7 [facility]EN [facility] WAN - 7 7 [facility]EN [facility] OFFICE 93802 [facility] LES[facility] 7 7 PHYSICIAN T VISIT S GROUP 25 MINUTES HOSPITAL WAN - 7 7 [facility] OUTPATIEN [facility] HOSPITAL WAN - 7 7 [facility] OUTPATIEN [facility] EMERGENCY 88689 MARRY TEMPLE 7 7 PHYSICIAN U [facility] S, [facility] T VISIT HIGH/URGE NT SEVERITY EMERGENCY 87192 WAN 7 7 MEM HOSP [facility] T VISIT LOW/MODER SEVERITY HOSPITAL WAN - 7 7 [facility] 38903 WAN 7 7 MEM H[facility] T VISIT LOW/MODER SEVERITY HOSPITAL WAN - 7 7 [facility] EMERGENC[facility] 19780 WAN 7 7 [facility] T VISIT LOW/MODER SEVERITY HOSPITAL WAN - 7 7 MEM [facility] OUTPATIEN [facility] T EMERGENCY 23924 [facility] 7 7 EMERGENCY N [facility] T VISIT PHYSICIAN MODERATE S SEVERITY OFFICE 42460 WAN NAVAS 7 7 MEM H[facility] 10 INC [facility] WAN - 7 [facility] T
--- OUTSIDE RECORDS SUMMARY | 2017-07-22 05:36 | External Medical Summary Rpt | CCD ---
Author Author , MARCELLA NARANJO Address Unknown Phone [email or web address] Care Team Providers Care Branch Logistics Supervisor Name Role Phone PANG, PANG Unavailable Unavailable [facility] Unavailable Unavailable PHYSICIANS, [facility] DEREK REED Unavailable Unavailable JR FITZPATRICK FULLER, Unavailable Unavailable JR MIKI LIV[facility]STON Unavailable Unavailable [facility] Unavailable Unavailable INC, [facility] DOWD, DOWD Unavailable Unavailable DOWD, DOWD Unavailable Unavailable [facility], Unavailable Unavailable [facility] Unavailable Unavailable [facility], [facility], Unavailable Unavailable PLLC, [facility] RENUSCH, RENUSCH Unavailable Unavailable [facility], Unavailable Unavailable [facility] SOTINGEANU, Unavailable Unavailable SOTINGEANU Purpose Continuity of Care Document - 11-22-2016 through 2016 Problems Code Diagnosis DOS Provider Status [id number] OTHER LONG 05-18-2017 [facility] CURRENT INC DRUG THERAPY G8929 OTHER 05-11-2017 [facility]RONIC [facility] PAIN PLL[facility] I10 ESSENTIAL 05-11-2017 [facility] HYPERTENSIO INC N M545 LOW BACK 05-11-2017 [facility] PAIN [facility] Z720 TOBACCO USE 05-11-2017 [facility] INC K22611 PAIN IN 04-06-2017 [facility] 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 04-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 [facility]AL [facility] DISORDERS [facility] NEC [id number] CONTUSION 04-06-2017 [facility] LOWER BACK PHYSICIANS, & PELVIS PLLC INITIAL ENCOUNTER [id number] STRAIN 04-06-2017 [facility] MUSCLE [facility], FASCIA & PLLC TENDON LOW BACK INITIAL N23 UNSPECIFIED 03-25-2017 [facility] RENAL [facility], COLIC PLLC R1012 LEFT UPPER 03-25-2017 [facility] PAIN INC R109 UNSPECIFIED 03-25-2017 [facility] ABDOMINAL [facility], PAIN PLLC S49353 PAIN IN 03-16-2017 [facility] LEFT MEDICAL SHOULDER [facility] B56525 PAIN IN 03-16-2017 [place] LEFT [facility]IP [facility] I22402 PAIN IN 03-16-2017 [facility] LEFT ANKLE [facility]ICAL [facility] [id number] CONTUSION 03-16-2017 [facility] OF LEFT HIP PHYSICIANS, INITIAL PLLC ENCOUNTER [id number] CONTUSION 03-16-2017 [facility] OF LEFT PHYSICIANS, LOWER LEG PLLC INITIAL ENCOUNTER [id number] CONTUSION 03-16-2017 [facility] LEFT [facility] [...] 02-02-2017 [facility] IA BILATERAL M5416 RADICULOPAT 01-17-2017 [facility] HY LUMBAR PHYSIC[facility]ANS [facility] GROUP R768 OTH SPEC 01-17-2017 [facility] ABNORMAL PHYSICIANS IMMUNOLOGIC GROUP AL FIND IN SERUM K219 GASTRO-ESOP 01-14-2017 [facility] H REFLUX [facility], DISEASE PLLC WITHOUT ESOPHAGITIS R4702 DYSPHASIA 01-14-2017 [facility] [id number] UNS FB 01-14-2017 [facility] PHARYNX PH[facility], CAUSING OTH PLLC INJURY INIT ENC Z0000 ENCOUNTER 01-09-2017 [facility] MED EXAM INC W/O ABNORMAL FIND M5116 INTERVERTEB 01-07-2017 [facility] D/O INC W/RADICULOP ATHY LUMB RGN J209 ACUTE 12-28-2016 [facility] UNSPECIFIED INC R0602 SHORTNESS 12-28-2016 [facility] MEDICAL [facility] [id number] SPRAIN 12-10-2016 [facility] CERVICAL PHYSICIANS [...] MG #3 TA 93 BL 8 ET ID 59 09 10 10 5 00 RI [...] 1 05 PH CE AR TA MA MS CY NO PH #3 EN 93 8 5- 32 5 LI 00 09 09 30 30 00 EA Ac SI 37 -0 -[address] ti NO 82 3- 9- 00 00 SI ve ID 07 20 20 50 DE IL 41 17 17 01 0 95 PH 10 AR MA MG CY TA OF BL CY ET NT HI AN A IN C ES 65 08 09 30 30 00 EA Ac CI 86 -1 -[address] ti TA 20 1- 8- 00 00 SI ve LO 37 20 20 49 DE ID 40 17 17 76 AM 1 51 [...] 5 00 PH CE AR TA MA MS CY NO PH OF EN CY NT [...] 50 1- 5- 00 00 SI ve ID 61 20 20 49 DE IL 01 17 17 63 0 26 PH 10 AR MA MG CY TA OF BL CY ET NT HI AN A IN C BU 00 07 08 60 30 00 EA Ac ID 59 -3 -[address] ti [...] 47 CE 0 84 PH TA AR MS MA NO CY PH EN OF CY 7. NT 5- HI 32 AN 5 A IN C BU 60 07 07 60 30 00 EA Ac ID 50 -0 -[address] ti [...] 50 1- 8- 00 00 SI ve ID 61 20 20 48 DE IL 01 [...] 5 80 PH CE AR TA MA MS CY NO PH OF CY 7. NT [...] HI TA AN B A IN C LI 06 30 30 00 EA Ac SI 18 -0 -[address] ti NO 50 7- 0- 00 00 SI ve ID 61 20 20 48 DE IL 01 17 17 65 0 64 PH 10 AR MA MG CY TA OF BL CY ET NT HI AN A IN C CL 60 30 00 EA Ac ON 18 -0 -[address] ti AZ 50 6- 0- 00 00 SI ve EP 06 20 20 49 DE AM 30 17 17 03 5 04 PH 0. AR 5 MA MG CY TA OF BL CY ET NT HI AN A IN C HY 00 03 13 [address] 40 -0 -[address] ti OC 60 6- 0- 00 00 SI ve OD 12 20 20 49 DE ON 40 17 17 03 -A 5 05 PH CE AR TA MA MS CY NO PH OF CY 7. NT 5- HI 32 AN 5 A IN C GA 60 30 00 EA Ac BA 87 -0 -[address] ti PE 70 7- 0- 00 00 SI ve NT 22 20 20 48 DE IN 30 17 17 65 5 63 PH 30 AR 0 MA MG CY CA OF PS CY UL NT E HI AN A IN C BU 60 02 10 60 30 00 EA Ac ID 50 -1 -[address] ti [...] 5 65 PH CE AR TA MA MS CY NO PH OF CY 7. NT 5- HI 32 AN 5 A IN C GA 60 30 00 EA Ac BA 87 [...] 50 8- 2- 00 00 SI ve ID 61 20 20 48 DE IL 01 [...] 04 05 60 30 00 WA Ac ID 50 -1 -1 .0 00 L- ti [...] MG CY TA #5 BL 91 ET HY 00 04 05 [address] 40 -1 -0 .0 00 TE ti OC 60 2- 5- 00 01 ve OD 12 20 20 17 AI ON 40 17 17 96 D -A 1 89 PH CE AR TA MA MS CY NO PH #3 93 7. 8 5- 32 5 PA 68 04 05 30 30 00 WA Ac NT 64 -0 -0 .0 00 L- ti OP 50 9- 5- 00 07 MA ve RA 49 20 20 48 RT ZO 27 17 17 12 LE 0 14 PH AR SO MA D CY DR #5 40 91 MG TA B LI 54 04 05 30 30 00 WA Ac SI 45 -1 -0 .0 00 L- ti NO 80 2- 5- 00 07 MA ve ID 99 20 20 48 RT IL 71 [...] PO 62 04 05 51 30 00 IA Ac LY 17 -1 -0 0. 00 L- ti ET 50 2- 5- 00 07 MA ve HY 44 20 20 0 48 RT LE 21 17 17 20 NE 5 03 PH AR GL MA YC CY OL #5 33 91 50 PO WD HY 00 04 04 [address] 40 -0 -2 .0 00 L- ti OC 60 4- 8- 00 02 MA ve OD 12 20 20 23 RT ON 30 17 17 98 -A 1 04 PH CE AR TA MA MS CY NO PH #5 EN 91 5- 32 5 GA 53 04 04 90 30 00 IA Ac BA 74 -0 -2 .0 00 L- ti PE 60 4- 8- 00 07 MA ve NT 10 20 20 48 RT IN 10 17 17 04 5 51 PH 10 AR 0 MA MG CY CA #5 PS 91 UL E ID 00 04 04 10 5 00 IA Ac ED 14 -0 -2 .0 00 L- ti NI 39 4- 8- 00 07 MA ve SO 73 20 20 48 RT NE 80 17 17 00 5 75 PH 20 AR MA MG CY TA #5 BL 91 ET AM 00 03 04 20 10 00 IA Ac OX 78 -2 -2 .0 00 L- ti -C 11 3- 1- 00 07 MA ve LA 85 20 20 47 RT V 22 17 17 82 87 0 43 PH 5- AR 12 MA 5 CY MG #5 TA 91 BL ET BE 68 03 04 30 10 00 IA Ac NZ 38 -2 -2 .0 00 [...] AI ZA 75 17 17 38 D ID 0 05 PH IN AR E MA 10 CY MG #3 93 TA 8 BL ET NA 68 03 03 30 15 00 RI Ac ID 46 -0 -3 .0 00 TE ti [...] DOS Code Location Performer Comment DRUG TEST 36580 [facility] QUAL DIR INC INC OPTICAL OBS PER DAY THERAPEUT 05374 [facility] IC [facility] PROPHYLAC INC INC TIC/DX INJECTION SUBQ/IM DRUG TEST 52698 [facility] QUAL DIR INC INC OPTICAL OBS PER DAY DRUG TEST 25911 [facility] QUAL DIR INC INC OPTICAL OBS PER DAY RADIOLOGI 67335 [place] [facility] C 7 MEDICAL EXAMINATI IMAGING ON PELVIS ASS 1/2 VIEWS RADEX 54483 [place] [facility] SPINE 7 MEDICAL LUMBOSACR IMAGING AL ASS MINIMUM 4 VIEWS RADEX 77891 [place] [facility] SACRUM & 7 MEDICAL COCCYX IMAGING MINIMUM 2 ASS VIEWS DRUG TEST 06408 [facility] QUAL DIR INC INC OPTICAL OBS PER DAY COMPREHEN 32332 [facility] SIVE [facility] METABOLIC INC INC PANEL BLOOD 38574 [facility] COUNT [facility] COMPLETE INC INC AUTO&[place] [address] [facility] INFUSION [facility] THERAPY/P INC INC ROPHYLAXI S /DX 1ST TO 1 HR THERAPEUT 26357 [facility] IC [facility] INJECTION INC INC IV PUSH EACH NEW DRUG FINAL G9638 [facility] REPORTS 7 MEDICAL W/O DOC IMAGING 1/MORE ASS DOSE REDUCTION TECH URNLS DIP 68674 [facility] STICK/TAB INC INC LET RGNT AUTO W/O MICROSCOP Y FINAL G9551 K[facility]SIE REED REPR ABD 7 MEDICAL IMAG STS IMAGING W/O ASS INCIDNT FND LES NTD: THER 95951 [facility] PROPH/DX 7 [facility] [place] [place] [facility] NJX EA INC INC SEQL IV PUSH SBST/[place] [address] [facility] ABDOMEN & 7 [facility] PELVIS INC INC W/O CONTRAST MATERIAL RADEX 12696 [facility] HIPS [facility] BILATERAL INC INC WITH PELVIS 2 VIEWS RADEX 57979 KELSIE PANG SACRUM & 7 MEDICAL COCCYX IMAGING MINIMUM 2 ASS VIEWS RADEX 67522 [facility] HIPS 7 MEDICAL BILATERAL IMAGING WITH ASS PELVIS 3-4 VIEWS RADEX 61088 K[facility]E PANG ANKLE 7 MEDICAL COMPLETE IMAGING MINIMUM 3 ASS VIEWS DRUG TEST G0481 [facility] DEFINITV 7 [facility] [place] [place] [facility] DR ID INC INC METH P DAY 8-14 DRUG CL DRUG TEST 95065 [facility] PRSMV [facility] QUAL DIR INC INC OPTICAL OBS PER DAY FINAL G9638 KELSIE PANG REPORTS 7 MEDICAL W/O DOC IMAGING 1/MORE ASS DOSE REDUCTION TECH BLOOD 66649 [facility] COUNT 7 [facility] COMPLETE INC INC AUTO&AUTO DIFRNTL WBC CT SOFT 58019 [facility] TISSUE 7 [facility] [place] [place] [facility] NECK INC INC W/CONTRAS T MATERIAL BASIC 32833 [facility] METABOLIC 7 [facility] [place] [place] [facility] PANEL INC INC CALCIUM TOTAL FINAL RPT G[address]/MRI 7 MEDICAL CHEST/NCK IMAGING /U/S NO ASS THR NOD<1.0 CM THERAPEUT 53856 [facility] IC PX 1/> 7 [facility] AREAS INC INC EACH 15 MIN EXERCISES DRUG 77124 [facility] SCREENING 7 [facility] [place] [place] [facility] OPIOIDS INC INC & OPIATE ANALOGS 5/MORE DRUG TEST 16163 [facility] PRSMV 7 [facility] QUAL DIR INC INC OPTICAL OBS PER DAY THERAPEUT 57442 [facility] IC PX 1/> 7 [facility] AREAS INC INC EACH 15 MIN EXERCISES OPHTH 32842 [facility] 7 XM&EVAL COMPRE NEW PT 1/> VST THERAPEUT 35162 [facility] IC PX 1/> 7 [facility] AREAS INC INC EACH 15 MIN EXERCISES DRUG TEST 39305 [facility] PRSMV 7 [facility] QUAL DIR INC INC OPTICAL OBS PER DAY DRUG 11696 [facility] SCREENING 7 [facility] OPIOIDS INC INC & OPIATE ANALOGS 5/MORE PHYSICAL 02008 [facility] THERAPY 7 [facility] [place] [place] [facility] EVALUATIO INC INC N MOD COMPLEX 30 [place] [address] [facility] STREPTOCO 7 [facility] [place] [place] [facility] CCUS INC INC GROUP A RADIOLOGI 61318 [facility] C 7 [facility] [place] [place] [facility] EXAMINATI INC INC ON NECK SOFT TISSUE CUL BACT 36689 [facility] XCPT 7 [facility] [place] [place] [facility] URINE INC INC BLOOD/[place] [address] [facility] BLOOD/URI 7 [facility] C ACID INC INC ANTINUCLE 11739 [facility] AR 7 [facility] [place] [place] [facility] ANTIBODIE INC INC S ANITA C-REACTIV 44512 [facility] E PROTEIN 7 [facility] INC INC COMPREHEN 96661 [facility] SIVE 7 [facility] METABOLIC INC INC PANEL DRUG TEST 89413 [facility] PRSMV 7 [facility] QUAL DIR INC INC OPTICAL OBS PER DAY SEDIMENTA 62679 [facility] TION RATE 7 [facility] [place] [place] [facility] RBC INC INC NON-AUTOM ATED HEMOGLOBI 19538 [facility] N 7 [facility] [place] [place] [facility] GLYCOSYLA INC INC MONSERRAT A1C BLOOD 02778 [facility] COUNT 7 [facility] COMPLETE INC INC AUTO&[place] [address] [facility] FREE 7 [facility] [place] [address] [facility] THYROID 7 [facility]OS[facility] STIMULATI INC INC NG HORMONE TSH LIPID 19534 [facility]N [facility] PANEL 7 [facility]OS[facility] INC INC RHEUMATOI 81331 WAN Varela FACTOR 7 [facility] QUANTITAT INC INC JOAN URNLS DIP 59851 [facility] 7 [facility]OSP STICK/TAB INC INC LET REAGENT AUTO MICROSCOP Y RADIOLOGI 34185 [place] [facility] C EXAM 7 MEDICAL CHEST 2 IMAGING VIEWS ASS FRONTAL&L ATERAL IAADIADOO 64830 [facility] 7 [facility] HOSP STREPTOCO INC INC CCUS GROUP A IAADIADOO 15998 [facility] 7 [facility] HOSP INFLUENZA INC INC Encounters Encounter Start End Date Code Location Performer Type Date HOSPITAL WAN Guzman 7 [facility] OUTPATIEN [facility] WAN Guzman 7 [facility] OUT[facility] T EMERGENCY 58095 WAN 7 7 [facility] T VISIT LOW/MODER SEVERITY EMERGENCY 65464 [facility] FERREIRA 7 7 PHYSICIAN ZOFIA S [facility] T VISIT HIGH/URGE NT SEVERITY HOSPITAL WAN Guzman 7 [facility] OUTPATIEN [facility] WAN Guzman 7 [facility] OUTPATIEN [facility] EMERGENCY 34058 M[facility]Y Guzman 7 PHYSICIAN ZOFIA Penaloza [facility] T VISIT HIGH/URGE NT SEVERITY EMERGENCY 09378 WAN 7 7 [facility] T VISIT LOW/MODER SEVERITY HOSPITAL WAN Guzman 7 [facility] OUTPATIEN [facility] WAN - Megan 7 [facility] OUTPATIEN [facility] EMERGENCY 16749 WAN GALINDO 7 7 [facility] VISIT INC HIGH SEVERITY& THREAT [facility] WAN - Megan 7 [facility] OUT[facility] T EMERGENCY 96366 Megan YANG 7 PHYSICIAN JR ZOFIA Penaloza [facility] T VISIT HIGH/URGE NT SEVERITY EMERGENCY 24524 WAN 7 [address] [facility] T VISIT LOW/MODER SEVERITY HOSPITAL WAN - 7 7 [facility] OUTPATIEN INC T HOSPITAL WAN - 7 7 [facility] OUTPATIEN INC T EMERGENCY 50697 [facility] VISIT S, PLLC HIGH SEVERITY& THREAT [facility] 65387 WAN 7 [address] [facility] T VISIT LOW/MODER SEVERITY HOSPITAL WAN - 7 7 [facility] [place] [place] [facility] OUTPATIEN [facility] T HOSPITAL WAN - 7 7 [facility] [place] [place] WAN - 7 7 [facility] [place] [place] [facility] OUTPATIEN INC T OFFICE 18722 [facility] 7 7 PHYSICIAN T VISIT S GROUP 25 MINUTES HOSPITAL WAN - 7 7 MEM H[facility] OUTPATIEN [facility] WAN - 7 7 [facility] [place] [place] WAN - 7 7 [facility] [place] [place] T EMERGENCY 55431 WAN 7 7 [facility] [place] [place] [facility] DEPARTMEN [facility] T VISIT LOW/MODER SEVERITY EMERGENCY 86406 M[facility]Y TEMPLE 7 7 PHYSICIAN U DEPARTMEN S, [facility] T VISIT HIGH/URGE NT SEVERITY HOSPITAL WAN - [address] [facility] T HOSPITAL WAN - 7 7 [facility] OUTPATIEN INC T EMERGENCY 45464 WAN 7 7 MEM [facility] DEPARTMEN INC T VISIT LOW/MODER SEVERITY EMERGENCY 48527 WAN 7 7 [facility] [place] [place] [facility] DEPARTMEN [facility] T VISIT LOW/MODER SEVERITY HOSPITAL WAN - 7 7 [facility] [place] [place] [facility] OUTPATIEN INC T EMERGENCY 30793 CHITO CASEY 7 7 EMERGENCY N [facility] T VISIT PHYSICIAN MODERATE S SEVERITY [facility] WAN Milligan 7 7 [facility] [place] [place] [facility] 11282 [facility]AN NAVAS 7 7 [facility] [place] T [address]
--- OUTSIDE RECORDS SUMMARY | 2017-07-22 05:36 | External Medical Summary Rpt | CCD ---
Demographics Preferred Language Russian Marital Status Unknown Adventism Affiliation Unknown Race Unknown Ethnic Group Unknown Author Author , MARCELLA NARANJO Address Unknown Phone Immunization Unable to retrieve immunization data due to connection failure with Immunization Registry. Please try again later.
--- OUTSIDE RECORDS SUMMARY | 2017-07-22 05:36 | External Medical Summary Rpt | CCD ---
Demographics Preferred Language Central African Marital Status Unknown Orthodoxy Affiliation Unknown Race Unknown Ethnic Group Unknown Author Author , MARCELLA NARANJO Address Unknown Phone Immunization Unable to retrieve immunization data due to connection failure with Immunization Registry. Please try again later.
--- OUTSIDE RECORDS SUMMARY | 2017-07-22 05:36 | External Medical Summary Rpt | CCD ---
Author Author , MARCELLA NARANJO Address Unknown Phone [email or web address] Care Team Providers Care Service Plumber Name Role Phone PANG, PANG Unavailable Unavailable [facility] Unavailable Unavailable PHYSICIANS, [facility] DEREK REED Unavailable Unavailable JR FITZPATRICK FULLER, Unavailable Unavailable JR MIKI LIVINGSTON Unavailable Unavailable [facility] Unavailable Unavailable INC, [facility] DOWD, DOWD Unavailable Unavailable DOWD, DOWD Unavailable Unavailable [facility], Unavailable Unavailable [facility] Unavailable Unavailable IM[facility], [facility], Unavailable Unavailable PLL[facility], [facility] RENUSCH, RENUSCH Unavailable Unavailable [facility], Unavailable Unavailable [facility] SOTINGEANU, Unavailable Unavailable SOTINGEANU Purpose Continuity of Care Document - 11-22-2016 through 2016 Problems Code Diagnosis DOS Provider Status [id number] OTHER LONG 05-18-2017 [facility] CURRENT INC DRUG THERAPY G8929 OTHER 05-11-2017 [facility] CHRONIC [facility] PAIN [facility] I10 ESSENTIAL 05-11-2017 [facility] HYPERTENSIO INC N M545 LOW BACK 05-11-2017 [facility] PAIN [facility] Z720 TOBACCO USE 05-11-2017 [facility] X73722 PAIN IN 04-06-2017 [place] [facility] 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 04-06-2017 [place] EAL [facility] DISORDERS [facility] NEC C994VGR CONTUSION 04-06-2017 [facility] LOWER BACK PHYSICIANS, & PELVIS PLLC INITIAL ENCOUNTER [id number] STRAIN 04-06-2017 [facility] MUSCLE [facility] FASCIA & PLLC TENDON LOW BACK INITIAL N23 UNSPECIFIED 03-25-2017 [facility] RENAL [facility], COLIC PLLC R1012 LEFT UPPER 03-25-2017 [facility] PAIN INC R109 UNSPECIFIED 03-25-2017 [facility] ABDOMINAL [facility], PAIN PLLC Z76745 PAIN IN 03-16-2017 [place] LEFT MEDICAL SHOULDER [facility] T47563 PAIN IN 03-16-2017 [place] [facility] S02124 PAIN IN 03-16-2017 [place] [facility] ANKLE [facility] O6133NX CONTUSION 03-16-2017 [facility] OF LEFT HIP PHYSICIANS, INITIAL PLLC ENCOUNTER [id number] CONTUSION 03-16-2017 [facility] OF LEFT PHYSICIANS, LOWER LEG PLLC INITIAL ENCOUNTER [id number] CONTUSION 03-16-2017 [facility] [...] 02-02-2017 [facility] IA BILATERAL M5416 RADICULOPAT 01-17-2017 [facility] HY LUMBAR [facility]YS[facility] R768 OTH SPEC 01-17-2017 [facility] ABNORMAL PHYSICIANS IMMUNOLOGIC GROUP AL FIND IN SERUM K219 GASTRO-ESOP 01-14-2017 [facility] H REFLUX [facility], DISEASE PLLC WITHOUT ESOPHAGITIS R4702 DYSPHASIA 01-14-2017 [facility] [id number] UNS FB 01-14-2017 [facility] PHARYNX [facility], CAUSING OTH PLLC INJURY INIT ENC Z0000 ENCOUNTER 01-09-2017 [facility] MED EXAM INC W/O ABNORMAL FIND M5116 INTERVERTEB 01-07-2017 [facility] D/O INC W/RADICULOP ATHY LUMB RGN J209 ACUTE 12-28-2016 [facility] UNSPECIFIED INC R0602 SHORTNESS 12-28-2016 [facility] [id number] SPRAIN 12-10-2016 [facility] CERVICAL PHYSICIANS [...] MG #3 TA 93 BL 8 ET WI 59 09 10 10 5 00 RI [...] 1 05 PH CE AR TA MA CA CY NO PH #3 EN 93 8 5- 32 5 LI 00 09 09 30 30 00 EA Ac SI 37 -0 -[address] ti NO 82 3- 9- 00 00 SI ve WI 07 20 20 50 DE IL 41 17 17 01 0 95 PH 10 AR MA MG CY TA OF BL CY ET NT HI AN A IN C ES 65 08 09 30 30 00 EA Ac CI 86 -1 -[address] ti TA 20 1- 8- 00 00 SI ve LO 37 20 20 49 DE WI 40 17 17 76 AM 1 51 [...] 5 00 PH CE AR TA MA CA CY NO PH OF EN CY NT [...] 50 1- 5- 00 00 SI ve WI 61 20 20 49 DE IL 01 17 17 63 0 26 PH 10 AR MA MG CY TA OF BL CY ET NT HI AN A IN C BU 00 07 08 60 30 00 EA Ac WI 59 -3 -[address] ti [...] 47 CE 0 84 PH TA AR CA MA NO CY PH EN OF CY 7. NT 5- HI 32 AN 5 A IN C BU 60 07 07 60 30 00 EA Ac WI 50 -0 -[address] ti [...] 50 1- 8- 00 00 SI ve WI 61 20 20 48 DE IL 01 [...] 5 80 PH CE AR TA MA CA CY NO PH OF CY 7. NT [...] 50 7- 0- 00 00 SI ve WI 61 20 20 48 DE IL 01 [...] 5 05 PH CE AR TA MA CA CY NO PH OF CY 7. NT [...] 02 10 60 30 00 EA Ac WI 50 -1 -[address] ti [...] 5 65 PH CE AR TA MA CA CY NO PH OF CY 7. NT [...] 50 8- 2- 00 00 SI ve WI 61 20 20 48 DE IL 01 [...] 04 05 60 30 00 WA Ac WI 50 -1 -1 .0 00 L- ti [...] 1 89 PH CE AR TA MA CA CY NO PH #3 93 7. 8 [...] 80 2- 5- 00 07 MA ve WI 99 20 20 48 RT IL 71 [...] PO 62 04 05 51 30 00 GA Ac LY 17 -1 -0 0. 00 L- ti ET 50 2- 5- 00 07 MA ve HY 44 20 20 0 48 RT LE 21 17 17 20 NE 5 03 PH AR GL MA YC CY OL #5 33 91 50 PO WD HY 00 04 04 [address] 40 -0 -2 .0 00 L- ti OC 60 4- 8- 00 02 MA ve OD 12 20 20 23 RT ON 30 17 17 98 -A 1 04 PH CE AR TA MA CA CY NO PH #5 EN 91 5- 32 5 GA 53 04 04 90 30 00 GA Ac BA 74 -0 -2 .0 00 L- ti PE 60 4- 8- 00 07 MA ve NT 10 20 20 48 RT IN 10 17 17 04 5 51 PH 10 AR 0 MA MG CY CA #5 PS 91 UL E WI 00 04 04 10 5 00 GA Ac ED 14 -0 -2 .0 00 L- ti NI 39 4- 8- 00 07 MA ve SO 73 20 20 48 RT NE 80 17 17 00 5 75 PH 20 AR MA MG CY TA #5 BL 91 ET AM 00 03 04 20 10 00 GA Ac OX 78 -2 -2 .0 00 L- ti -C 11 3- 1- 00 07 MA ve LA 85 20 20 47 RT V 22 17 17 82 87 0 43 PH 5- AR 12 MA 5 CY MG #5 TA 91 BL ET BE 68 03 04 30 10 00 GA Ac NZ 38 -2 -2 .0 00 [...] AI ZA 75 17 17 38 D WI 0 05 PH IN AR E MA 10 CY MG #3 93 TA 8 BL ET NA 68 03 03 30 15 00 RI Ac WI 46 -0 -3 .0 00 TE ti [...] DOS Code Location Performer Comment DRUG TEST 31434 [facility] QUAL DIR INC INC OPTICAL OBS PER DAY THERAPEUT 15841 [facility] IC [facility] PROPHYLAC INC INC TIC/DX INJECTION SUBQ/IM DRUG TEST 94619 [facility] QUAL DIR INC INC OPTICAL OBS PER DAY DRUG TEST 31759 [facility] QUAL DIR INC INC OPTICAL OBS PER DAY RADIOLOGI 35375 [place] [facility] C 7 MEDICAL EXAMINATI IMAGING ON PELVIS ASS 1/2 VIEWS RADEX 12105 [place] [facility] SPINE 7 MEDICAL LUMBOSACR IMAGING AL ASS MINIMUM 4 VIEWS RADEX 92582 [place] [facility] SACRUM & 7 MEDICAL COCCYX IMAGING MINIMUM 2 ASS VIEWS DRUG TEST 67268 [facility] PR[facility]V [facility] QUAL DIR INC INC OPTICAL OBS PER DAY COMPREHEN 63084 [facility] SIVE 7 [facility] METABOLIC INC INC PANEL BLOOD 13567 [facility] COUNT [facility] COMPLETE INC INC AUTO&[place] [address] [facility] INFUSION [facility] THERAPY/P INC INC ROPHYLAXI S /DX 1ST TO 1 HR THERAPEUT 47107 [facility] IC [facility] INJECTION INC INC IV PUSH EACH NEW DRUG FINAL G9638 [facility] REPORTS 7 MEDICAL W/O DOC IMAGING 1/MORE ASS DOSE REDUCTION TECH URNLS DIP 76602 [facility] STICK/TAB INC INC LET RGNT AUTO W/O MICROSCOP Y FINAL G9551 KELSIE REED REPR ABD 7 MEDICAL IMAG STS IMAGING W/O ASS INCIDNT FND LES NTD: THER 98166 [facility] PROPH/DX 7 [facility] NJX EA INC INC SEQL IV PUSH SBST/[place] [address] [facility] ABDOMEN & 7 [facility] PELVIS INC INC W/O CONTRAST MATERIAL RADEX 60772 [facility] HIPS 7 [facility] BILATERAL INC INC WITH PELVIS 2 VIEWS RADEX 71022 KELSIE PANG SACRUM & 7 MEDICAL COCCYX IMAGING MINIMUM 2 ASS VIEWS RADEX 91313 K[facility]E PANG HIPS 7 MEDICAL BILATERAL IMAGING WITH ASS PELVIS 3-4 VIEWS RADEX 21697 KELSIE PANG ANKLE 7 MEDICAL COMPLETE IMAGING MINIMUM 3 ASS VIEWS DRUG TEST G0481 [facility] DEFINITV 7 [facility] DR ID INC INC METH P DAY 8-14 DRUG CL DRUG TEST 05099 [facility] PRSMV [facility] QUAL DIR INC INC OPTICAL OBS PER DAY FINAL G9638 KELSIE PANG REPORTS 7 MEDICAL W/O DOC IMAGING 1/MORE ASS DOSE REDUCTION TECH BLOOD 68508 [facility] COUNT [facility] COMPLETE INC INC AUTO&AUTO DIFRNTL WBC CT SOFT 35970 [facility] TISSUE 7 [facility] NECK INC INC W/CONTRAS T MATERIAL BASIC 86982 [facility] METABOLIC 7 [facility] PANEL INC INC CALCIUM TOTAL FINAL RPT G[address]/MRI 7 MEDICAL CHEST/NCK IMAGING /U/S NO ASS THR NOD<1.0 CM THERAPEUT 26630 [facility] IC PX 1/> 7 [facility] AREAS INC INC EACH 15 MIN EXERCISES DRUG 31359 [facility] SCREENING 7 [facility] OPIOIDS INC INC & OPIATE ANALOGS 5/MORE DRUG TEST 89176 [facility] PRSMV 7 [facility] QUAL DIR INC INC OPTICAL OBS PER DAY THERAPEUT 59987 [facility] IC PX 1/> 7 [facility] AREAS INC INC EACH 15 MIN EXERCISES OPHTH 02354 [facility] 7 XM&EVAL COMPRE NEW PT 1/> VST THERAPEUT 64335 [facility] IC PX 1/> 7 [facility] AREAS INC INC EACH 15 MIN EXERCISES DRUG TEST 61356 [facility] PRSMV 7 [facility] QUAL DIR INC INC OPTICAL OBS PER DAY DRUG 83889 [facility] SCREENING 7 [facility] OPIOIDS INC INC & OPIATE ANALOGS 5/MORE PHYSICAL 16419 [facility] THERAPY 7 [facility] EVALUATIO INC INC N MOD COMPLEX 30 [place] [address] [facility] STREPTOCO 7 [facility] CCUS INC INC GROUP A RADIOLOGI 11675 [facility] C 7 [facility] EXAMINATI INC INC ON NECK SOFT TISSUE CUL BACT 22076 [facility] XCPT 7 [facility] URINE INC INC BLOOD/[place] [address] [facility] BLOOD/URI 7 [facility] C ACID INC INC ANTINUCLE 61031 [facility] AR 7 [facility] ANTIBODIE INC INC S ANITA C-REACTIV 87960 [facility] E PROTEIN 7 [facility] INC INC COMPREHEN 94192 [facility] SIVE 7 [facility] METABOLIC INC INC PANEL DRUG TEST 83213 [facility] PRSMV 7 [facility] QUAL DIR INC INC OPTICAL OBS PER DAY SEDIMENTA 55946 [facility] TION RATE 7 [facility] RBC INC INC NON-AUTOM ATED HEMOGLOBI 72223 [facility] N 7 [facility] GLYCOSYLA INC INC MONSERRAT A1C BLOOD 47700 [facility] COUNT 7 [facility] COMPLETE INC INC AUTO&[place] [address] [facility] FREE 7 [facility] [place] [address] [facility] THYROID 7 [facility] STIMULATI INC INC NG HORMONE TSH LIPID 66669 [facility] PANEL 7 [facility]OS[facility] INC INC RHEUMATOI 80724 WAN Varela FACTOR 7 [facility] QUANTITAT INC INC JOAN URNLS DIP 89627 [facility] 7 [facility]OS[facility] STICK/TAB INC INC LET REAGENT AUTO MICROSCOP Y RADIOLOGI 48705 [place] [facility] C EXAM 7 MEDICAL CHEST 2 IMAGING VIEWS ASS FRONTAL&L ATERAL IAADIADOO 42513 [facility] 7 [facility] STREPTOCO INC INC CCUS GROUP A IAADIADOO 75090 [facility] 7 [facility]OS[facility] INFLUENZA INC INC Encounters Encounter Start End Date Code Location Performer Type Date HOSPITAL WAN Guz[facility] 7 [facility] OUT[facility]IEN [facility] WAN Guzman 7 [facility] OUTPATIEN [facility] T EMERGENCY 19574 WAN 7 7 [facility] T VISIT LOW/MODER SEVERITY EMERGENCY 53611 [facility] FERREIRA [address] [facility] T VISIT HIGH/URGE NT SEVERITY HOSPITAL WAN Guzman 7 [facility] OUTPATI[facility] WAN Guzman 7 [facility] OUTPATIEN [facility] EMERGENCY 74732 MARRY Guzman [address] [facility] T VISIT HIGH/URGE NT SEVERITY EMERGENCY 61531 WAN 7 7 [facility] T VISIT LOW/MODER SEVERITY HOSPITAL WAN Guzman 7 [facility] OUTPATIEN [facility] WAN - Megan 7 [facility] OUTPATIEN [facility] EMERGENCY 96033 WAN GALINDO 7 7 [facility] VISIT INC HIGH SEVERITY& THREAT [facility] W[facility] - Megan 7 [facility] OUTPATIEN [facility] T EMERGENCY 62676 Megan YANG [address] [facility] T VISIT HIGH/URGE NT SEVERITY EMERGENCY 34568 WAN 7 7 [facility] DEPARTMEN [facility] T VISIT LOW/MODER SEVERITY HOSPITAL WAN - 7 7 [facility] OUTPATIEN INC T HOSPITAL WAN - 7 7 [facility] OUTPATIEN INC T EMERGENCY 94196 [facility] PHYSICIAN VISIT S, PLLC HIGH SEVERITY& THREAT [facility]ERG[facility] 36671 WAN 7 7 [facility] DEPARTMEN [facility] T VISIT LOW/MODER SEVERITY HOSPITAL WAN - 7 7 [facility] OUTPATIEN [facility] T HOSPITAL WAN - 7 7 [facility]PATIEN [facility] H[facility]PITAL WAN - 7 7 [facility] OUTPATIEN INC T OFFICE [address] [facility] 7 7 PHYSICIAN T VISIT S GROUP 25 MINUTES HOSPITAL WAN - 7 7 [facility] OUTPATIEN [facility] WAN - 7 7 [facility]IEN [facility] WAN - 7 7 [facility] OUTPATIEN [facility] T EMERGENCY 95621 WAN 7 7 [facility] DEPARTMEN [facility] T VISIT LOW/MODER SEVERITY EMERGENCY 83979 MARRY TEMPLE 7 7 PHYSICIAN U DEPARTMEN S, [facility] T VISIT HIGH/URGE NT SEVERITY HOSPITAL WAN - 7 7 [facility] OUTPATIEN [facility] T HOSPITAL WAN - 7 7 [facility] OUTPATIEN INC T EMERGENCY 35800 WAN 7 7 [facility] DEPARTMEN INC T VISIT LOW/MODER SEVERITY EMERGENCY 61432 WAN 7 7 [facility] DEPARTMEN [facility] T VISIT LOW/MODER SEVERITY HOSPITAL WAN - 7 7 [facility] OUTPATIEN INC T EMERGENCY 22906 CHITO CASEY 7 7 EMERGENCY [facility] T VISIT PHYSICIAN MODERATE S SEVERITY [facility] WAN Milligan 7 7 [facility] 03827 WAN NAVAS 7 7 [facility] T [address]
--- NOTE | 2017-07-22 08:24 | RADIOLOGY REPORT PS360 ---
CT ABD PELVIS W/O CONTRAST CLINICAL INDICATION: Hematuria, right flank pain BACK PAIN AND BLOOD IN URINE ORDERING PHYSICIAN: Connor Paula MD PATIENT AGE: 26 years COMPARISON: 03/25/2017 TECHNIQUE: Axial images obtained with sagittal and coronal reformats. PROCEDURE: Oral Contrast: None IV Contrast: None . FINDINGS: The lung bases are clear. The liver, spleen, adrenal glands, pancreas, gallbladder, kidneys, ureters, and urinary bladder have an unremarkable unenhanced appearance. Scattered small lymph nodes present in the retroperitoneum nonspecific. No evidence of appendicitis or diverticulitis. No intestinal obstruction or free air. No acute bony anomalies IMPRESSION: No acute intra-abdominal or pelvic pathology. No evidence of obstructing ureteral calculus.
== END 2017-07-21 21:05 | disposition home or self-care (01) ==
LOC: ER 19:00
PROVIDERS: General Practice
DX: R31.9 Hematuria, unspecified (principal); Z88.6 Allergy status to analgesic agent; I10 Essential (primary) hypertension; F41.9 Anxiety disorder, unspecified; F17.210 Nicotine dependence, cigarettes, uncomplicated

== ENCOUNTER 2017-07-26 15:35 | Emergency (ER) | payer MEDICAID ==
[~2017-07-26] VITALS: Ht 203.2 cm; Wt 140.6 kg
--- OUTSIDE RECORDS SUMMARY | 2017-07-26 15:43 | External Medical Summary Rpt | CCD ---
Author Author , MARCELLA Organization MARCELLA Address Unknown Phone [email or web address] Care Team Providers Care Prime Minister Name Role Phone PANG, PANG Unavailable Unavailable [facility] Unavailable Unavailable [facility]YSIC[facility]ANS, [facility] DEREK REED Unavailable Unavailable JR FITZPATRICK FULLER, Unavailable Unavailable MIKI MICHELLE Unavailable Unavailable [facility] Un[facility] Un[facility], [facility] DOWD, DOWD Unavailable Unavailable DOWD, DOWD Unavailable Unavailable [facility], Unavailable Unavailable [facility] Unavailable [facility], [facility], Unavailable Unavailable PLL[facility], [facility] RENUSCH, RENUSCH Unavailable Unavailable MARILY, Unavailable Unavailable MARILY SORUBY, Unavailable Unavailable SOTINGEANU Purpose Continuity of Care Document - 04-29-2014 through 2016 Problems Code Diagnosis DOS Provider Status [id number] OTHER LONG 05-18-2017 [facility] CURRENT INC DRUG THERAPY G8929 OTHER 05-11-2017 [facility]RON[facility] PAIN [facility] I10 ESSENTIAL 05-11-2017 [facility] HYPERTENSIO INC N M545 LOW BACK 05-11-2017 [facility] PAIN [facility] Z720 TOBACCO USE 05-11-2017 [facility] INC X42784 PAIN IN 04-06-2017 [facility] 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 04-06-2017 [facility] EAL [facility]ICAL DISORDERS [facility] NEC U014YSS CONTUSION 04-06-2017 [facility] LOWER BACK PHYSIC[facility], & PELVIS PLLC INITIAL ENCOUNTER [id number] STRAIN 04-06-2017 [facility] MUSCLE [facility] FASCIA & PLLC TENDON LOW BACK INITIAL N23 UNSPECIFIED 03-25-2017 [facility] RENAL [facility], COLIC PLLC R1012 LEFT UPPER 03-25-2017 [facility] PAIN INC R109 UNSPECIFIED 03-25-2017 [facility] ABDOMINAL [facility], PAIN PLLC X24577 PAIN IN 03-16-2017 [place] LEFT MEDICAL SHOULDER [facility] E16020 PAIN IN 03-16-2017 [place] LEFT [facility]IP [facility] V61049 PAIN IN 03-16-2017 [place] LEFT ANKLE [facility]ICAL [facility] [id number] CONTUSION 03-16-2017 [facility] OF LEFT HIP PHYSICIANS, INITIAL PLLC ENCOUNTER [id number] CONTUSION 03-16-2017 [facility] OF LEFT PHYSICIANS, LOWER LEG PLLC INITIAL ENCOUNTER M4369AC CONTUSION 03-16-2017 [facility] [...] 02-02-2017 [facility] IA BILATERAL M5416 RADICULOPAT 01-17-2017 [facility] HY LUMBAR PHYSICIANS REGION GROUP R768 OTH SPEC 01-17-2017 [facility] ABNORMAL PHYSICIANS IMMUNOLOGIC GROUP AL FIND IN SERUM K219 GASTRO-ESOP 01-14-2017 [facility] H REFLUX [facility], DISEASE PLLC WITHOUT ESOPHAGITIS R4702 DYSPHASIA 01-14-2017 [facility] [id number] UNS FB 01-14-2017 [facility] PHARYNX [facility], CAUSING OTH PLLC INJURY INIT ENC Z0000 ENCOUNTER 01-09-2017 [facility] MED EXAM INC W/O ABNORMAL FIND M5116 INTERVERTEB 01-07-2017 [facility] D/O INC W/RADICULOP ATHY LUMB RGN J209 ACUTE 12-28-2016 [facility] UNSPECIFIED INC R0602 SHORTNESS 12-28-2016 [facility] MED[facility] [id number] SPRAIN 12-10-2016 [facility] CERV[facility]YS[facility] SPINE INITIAL ENCOUNTR J0100 ACUTE 11-22-2016 [facility] SINUSITIS INC UNSPECIFIED F41.9 ANXIETY DISORDER, UNSPECIFIED F43.22 ADJUSTMENT DISORDER WITH ANXIETY J20.9 ACUTE BRONCHITIS, UNSPECIFIED K21.9 GASTRO-ESOP HAGEAL REFLUX DISEASE WITHOUT ESOPHAGITIS M51.16 INTERVERTEB RAL DISC DISORDERS W RADICULOPAT HY, LUMBAR REGION M54.9 DORSALGIA, UNSPECIFIED N23 UNSPECIFIED RENAL COLIC R07.0 PAIN IN THROAT R09.89 OTH SYMPTOMS AND SIGNS INVOLVING THE CIRC AND RESP SYSTEMS R10.11 RIGHT UPPER QUADRANT PAIN R10.9 UNSPECIFIED ABDOMINAL PAIN R31.9 HEMATURIA, UNSPECIFIED R76.8 OTHER SPECIFIED ABNORMAL IMMUNOLOGIC AL FINDINGS IN SERUM S01.01XA LACERATION WITHOUT FOREIGN BODY OF SCALP, INITIAL ENCOUNTER S30.0XXA CONTUSION OF LOWER BACK AND PELVIS, INITIAL ENCOUNTER S39.012A STRAIN OF MUSCLE, FASCIA AND TENDON OF LOWER BACK, INIT T14.8 OTHER INJURY OF UNSPECIFIED BODY REGION T17.208A UNSP FOREIGN BODY IN PHARYNX CAUSING OTH INJURY, INIT ENCNTR Z78.9 OTHER SPECIFIED HEALTH STATUS Allergies, Adverse Reactions, Alerts Clinical Alert Notifications [...] MG #3 TA 93 BL 8 ET MO 59 09 10 10 5 00 RI [...] 82 3- 9- 00 00 SI ve MO 07 20 20 50 DE IL 41 [...] ST ti OC 60 1- 8- 00 SI ve OD 12 20 20 49 DE ON 30 17 17 76 -A 5 00 PH CE AR TA MA AR CY NO PH OF EN CY NT 5- HI 32 AN 5 A IN C CL 00 08 09 60 30 00 EA Ac ON 22 -1 -[address] ti AZ 83 6- 8 00 SI ve EP 00 20 20 49 DE AM 35 17 17 47 0 77 PH 0. AR 5 MA MG CY TA OF BL CY ET NT HI AN A IN C ES 65 08 09 30 30 00 EA Ac CI 86 -1 -[address] ti TA 20 1- 8 00 SI ve LO 37 20 20 49 DE MO 40 17 17 76 AM 1 51 PH AR 10 MA CY MG OF TA CY BL NT ET HI AN A IN C LI 00 07 08 30 30 00 EA Ac SI 18 -3 -[address] ti NO 50 1- 5 00 SI ve MO 61 20 20 49 DE IL 01 17 17 63 0 26 PH 10 AR MA MG CY TA OF BL CY ET NT HI AN A IN C BU 08 60 30 00 EA Ac MO 59 -3 -[address] ti OP 13 1- 5 00 SI ve IO 54 20 20 49 DE N 10 17 17 34 HC 5 91 PH L AR SR MA CY 15 0 OF MG CY NT TA HI BL AN ET A IN C CL 00 07 08 60 30 00 EA Ac ON 22 -1 -[address] ti AZ 83 8- 00 SI ve EP 00 20 20 49 DE AM 35 17 17 47 0 77 PH 0. AR 5 MA MG CY TA OF BL CY ET NT HI AN A IN C GA 67 07 08 60 30 00 EA Ac BA 87 -1 -[address] ti PE 70 8- 00 SI ve NT 22 20 20 [...] 07 07 60 30 00 EA Ac MO 50 -0 -[address] ti OP 50 1- 8- 00 00 SI ve IO 15 20 20 48 DE N 80 17 17 65 HC 1 70 PH L AR 75 MA CY MG OF TA CY BL NT ET HI AN A IN C LI 00 07 30 30 00 EA Ac SI 18 -0 -[address] ti NO 50 1- 8- 00 00 SI ve MO 61 20 20 48 DE IL 01 17 17 65 0 64 PH 10 AR MA MG CY TA OF BL CY ET NT HI AN A IN C HY 07 [address] [...] NT HI AN A IN C DI 06 07 30 15 00 EA Ac CL 22 -0 -[address] ti OF 82 9- 7- 00 00 SI ve EN 55 20 20 49 DE AC 09 17 17 08 6 19 PH SO AR D MA EC CY 50 OF CY MG NT HI TA AN B A IN C GA 67 06 60 30 00 EA Ac BA [...] 50 7- 0- 00 00 SI ve MO 61 20 20 48 DE IL 01 [...] 05 06 60 30 00 EA Ac MO 50 -1 -[address] ti OP 50 8- 6- 00 00 SI ve IO 15 20 20 48 DE N 80 17 17 65 HC 1 70 PH L AR 75 MA CY MG OF TA CY BL NT ET HI AN A IN C HY 00 06 [address] [...] 50 8- 2- 00 00 SI ve MO 61 20 20 48 DE IL 01 17 17 65 0 64 PH 10 AR MA MG CY TA OF BL CY ET NT HI AN A IN C BU 60 04 05 60 30 00 WA Ac MO 50 -1 -1 .0 00 L- ti [...] MG CY TA #5 BL 91 ET OX 13 04 05 90 30 00 EA Ac YC 10 -1 -[address] ti OD 70 8- 2- 00 00 SI ve ON 05 20 20 48 DE E 50 17 17 40 HC 1 45 PH L AR 5 MA MG CY TA OF BL CY ET NT HI AN A IN C HY 00 04 05 90 30 00 [...] 80 2- 5- 00 07 MA ve MO 99 20 20 48 RT IL 71 [...] OL #5 33 91 50 PO WD PA 68 04 05 30 30 00 WA Ac NT 64 -0 -0 .0 00 L- ti OP 50 9- 5- 00 07 MA ve RA 49 20 20 48 RT ZO 27 17 17 12 LE 0 14 PH AR SO MA D CY DR #5 40 91 MG TA B GA 53 04 04 90 30 00 WA Ac BA 74 -0 -2 .0 00 L- ti PE 60 4- 8- 00 07 MA ve NT 10 20 20 48 RT IN 10 17 17 04 5 51 PH 10 AR 0 MA MG CY CA #5 PS 91 UL E MO 00 04 04 10 5 00 WA Ac ED 14 -0 -2 .0 00 L- ti NI 39 4- 8- 00 07 MA ve SO 73 20 20 48 RT NE 80 17 17 00 5 75 PH 20 AR MA MG CY TA #5 BL 91 ET HY 00 04 04 [address] 40 -0 -2 .0 00 L- ti OC 60 4- 8- 00 02 MA ve OD 12 20 20 23 RT ON 30 17 17 98 -A 1 04 PH CE AR TA MA AR CY NO PH #5 EN 91 5- 32 5 AM 00 03 04 20 10 00 WA Ac OX 78 -2 -2 .0 00 L- ti -C 11 3- 1- 00 07 MA ve LA 85 20 20 47 RT V 22 17 17 82 87 0 43 PH 5- AR 12 MA 5 CY MG #5 TA 91 BL ET BE 68 03 04 30 10 00 WA Ac NZ 38 -2 -2 .0 00 [...] AI ZA 75 17 17 38 D MO 0 05 PH IN AR E MA 10 CY MG #3 93 TA 8 BL ET NA 68 03 03 30 15 00 RI Ac MO 46 -0 -3 .0 00 TE ti [...] Order Detail nces retati t Range on Comprehensive metabolic panel (07-21-2017 19:45) Protein 10-14-2 = 7.7 6.4-8.2 complet total 017 gm/dL ed ser/binta 19:45 s ALT 10-14-2 = 46 12-78 complet (SGPT) 017 U/L ed ser/binta 19:45 s Serum 10-14-2 = 35 15-37 complet or 017 U/L ed plasma 19:45 asparta te aminotr ansfera Serum 10--2 = 138 136-145 complet sodium 017 mmoL/L ed measure 19:45 ment Serum 10-2 = 3.9 3.5-5.1 complet potassi 017 mmoL/L ed um 19:45 measure ment Serum 07-21-2 = 82 74-106 complet or 017 mg/dL ed plasma 19:45 glucose measure ment (mas Serum = 3.8 1.3-3.2 complet globuli 017 gm/dL ed n 19:45 measure ment (mass/v olume) Estimat = 100 >60 complet ed 017 ML/MIN ed glomeru 19:45 lar filtrat ion rate (GF Comment: REFERENCE RANGE: >60 ML/MIN/1.73 SQUARE METERS Comment: If this patient is -Albanian, then multiply the Comment: result by 1.210. Estimat = 243 50-200 complet ion of 017 ML/MIN ed creatin 19:45 ine renal clearan ce Serum = 0.9 0.70-1. complet or 017 mg/dL 30 ed plasma 19:45 creatin ine measure ment ( Carbon = 25 21.0-32 complet dioxide 017 mmoL/L .0 ed 19:45 measure ment Serum = 105 98-107 complet or 017 mmoL/L ed plasma 19:45 chlorid e measure ment (mo Serum = 9.3 8.5-10. complet or 017 mg/dL 1 ed plasma 19:45 calcium measure ment (mas Serum = 18 7-18 complet or 017 mg/dL ed plasma 19:45 urea nitroge n measure men Serum = 0.3 0.2-1.0 complet or 017 mg/dL ed plasma 19:45 total bilirub in measure m Serum = 79 46-116 complet or 017 U/L ed plasma 19:45 alkalin e phospha tase mouna Serum = 3.9 3.4-5.0 complet or 017 gm/dL ed plasma 19:45 albumin measure ment (mas Serum = 1.0 1.1-1.8 complet or 017 ed plasma 19:45 albumin /globul in mass ra CBC w auto diff (07-21-2017 19:45) Automat = 0.0 0-0.2 complet ed 017 K/MM3 ed blood 19:45 basophi l count (count/ vo Blood = 8.0 4.8-10. complet leukocy 017 K/MM3 8 ed jignesh 19:45 count (number /volume ) Automat = 12.9 11.5-17 complet ed 017 % .5 ed erythro 19:45 cyte distrib ution width Red = 4.85 4.6-6.2 complet blood 017 M/mm3 ed cell 19:45 count Blood = 157 142-424 complet platele 017 K/mm3 ed t count 19:45 Automat = 9.9 7.4-10. complet ed 017 fl 4 ed blood 19:45 platele t mean volume mouna Calvert % = 3.6 % 1.7-9.3 complet 017 ed 19:45 Absolut = 0.3 0.1-1.0 complet e 017 K/mm3 ed monocyt 19:45 e count Automat = 89.2 82.2-97 complet ed 017 fl .8 ed erythro 19:45 cyte mean corpusc ular v Automat = 34.1 31.8-35 complet ed 017 g/dl .4 ed erythro 19:45 cyte mean corpusc ular h Mean = 30.4 27-31.2 complet corpusc 017 pg ed ular 19:45 hemoglo bin (MCH) determ Lymphoc = 24.9 10-50 complet yte 017 % ed count, 19:45 blood, automat ed Absolut = 2.0 0.7-4.5 complet e 017 K/mm3 ed lymphoc 19:45 yte count Blood = 14.7 14.1-18 complet hemoglo 017 g/dL .0 ed bin 19:45 measure ment (mass/v olum Blood = 43.3 42.0-52 complet hematoc 017 % .0 ed rit 19:45 (volume fractio n) Granulo = 68.2 37.0-80 complet cyte 017 % .0 ed percent 19:45 age Blood = 5.4 1.3-8.0 complet granulo 017 K/mm3 ed cytes 19:45 automat ed count (numb Automat 10-14-2 = 2.8 % 0.1-12. complet ed 017 0 ed blood 19:45 eosinop hils/10 0 leukocy t Automat = 0.2 0.0-0.4 complet ed 017 K/mm3 ed blood 19:45 eosinop hil count Baso % = 0.5 % 0.1-2.0 complet 017 ed 19:45 Urine 9-analyte drugs of abuse screening (07-21-2017 19:10) Comment: Positive urine drug screen samples are stored for 7 days. Comment: Contact the Lab if confirmation of positives is needed. 11-hydr NEGATIV <50 complet oxy 017 E ed delta-9 19:10 NEGATIV E L tetrahy ng/mL drocann abinol Phencyc = <25 complet lidine 017 NEGATIV ed measure 19:10 E ng/mL ment (mass/v olume) Opiates = <300 complet 017 POSITIV ed measure 19:10 E ng/mL ment (mass/v olume) Comment: This is an UNCONFIRMED result. This result is for medical Comment: purposes and/or treatment only. Methado = <300 complet ne 017 NEGATIV ed measure 19:10 E ng/mL ment (mass/v olume) Cocaine = <300 complet 017 NEGATIV ed measure 19:10 E ng/g ment (mass/v olume) Serum = 200 complet or 017 NEGATIV ng/mL ed plasma 19:10 E ng/mL benzodi azepine s measure m Urine = <200 complet barbitu 017 NEGATIV ed rates 19:10 E ng/mL measure ment by screen Urine NEGATIV <1000 complet ampheta 017 E ed mine 19:10 NEGATIV screeni E L ng test ng/mL Urinalysis with microscopy (07-21-2017 19:10) Urine NEGATIV NEG complet ketones 017 E ed 19:10 NEGATIV detecti E L on by mg/dL automat ed jignesh Glucose = NEG complet ur 017 NEGATIV ed test 19:10 E strip Urine 10-14-2 YELLOW YELLOW complet color 017 YELLOW ed 19:10 L Urine 07-21- 1+ 1+ L NEG complet blood 017 ed detecti 19:10 on Urine NEGATIV NEG complet total 017 E ed bilirub 19:10 NEGATIV in E L detecti on by test Amorpho TRACE NONE complet us 017 TRACE L ed sedimen 19:10 t detecti on in urine se Urine CLEAR CLEAR complet appeara 017 CLEAR L ed nce 19:10 determi nation Urine = OCC O complet leukocy 017 wbc/hpf ed jignesh 19:10 count (number /volume ) Urine 0.2 0.2 NEG complet urobili 017 L ed nogen 19:10 E.U./dL detecti on by test str Urine > = 1.005-1 complet specifi 017 1.030 .030 ed c 19:10 gravity measure ment Erythro 5-10 0 complet cytes 017 5-10 L ed detecti 19:10 rbc/hpf on in urine sedimen t Urine = NEG complet protein 017 NEGATIV ed 19:10 E mg/dL measure ment by automat ed t Urine = 6.0 5.0-8.5 complet pH 017 ed 19:10 Urine NEGATIV NEG complet nitrite 017 E ed 19:10 NEGATIV detecti E L on by test strip Mucus 1+ 1+ L NONE complet detecti 017 ed on in 19:10 urine sedimen t by lig Mucus NEGATIV NEG complet detecti 017 E ed on in 19:10 NEGATIV urine E L sedimen t by lig Drugs identified in Urine by Screen method (07-21-2017 19:10) Ampheta NEGATIV <1000 complet mine 017 E ed [Presen 19:10 ce] in Urine by Screen method NEGATIV <50 complet oxy 017 E ed delta-9 19:10 tetrahy drocann abinol [Presen ce] in Unspeci fied specime n Drugs identified in Urine by Screen method (05-18-2017 09:35) Ampheta NEGATIV <1000 complet mine 017 E [...] ce] in Urine by Test strip Urobili 0.2 NEG complet nogen 017 ed [Presen 22:45 ce] in Urine by Test strip Drugs identified in Urine by Screen method (04-24-2017 09:45) Ampheta 04-24-2 NEGATIV <1000 complet mine 017 E ed [Presen 09:45 ce] in Urine by Screen method 11-Hydr 2 NEGATIV <50 complet oxy 017 E ed delta-9 09:45 tetrahy drocann abinol [Presen ce] in Unspeci fied specime n Drugs identified in Urine by Screen method (04-11-2017 14:15) Ampheta 04-11-2 NEGATIV <1000 complet mine 017 E ed [Presen 14:15 ce] in Urine by Screen method 11-Hydr 2 NEGATIV <50 complet oxy 017 E ed delta-9 14:15 tetrahy drocann abinol [Presen ce] in Unspeci fied specime n Drugs identified in Urine by Screen method (03-27-2017 13:10) Ampheta 03-27-2 NEGATIV <1000 complet mine 017 E ed [Presen 13:10 ce] in Urine by Screen method 11-Hydr 2 NEGATIV <50 complet oxy 017 E ed delta-9 13:10 tetrahy drocann abinol [Presen ce] in Unspeci fied specime n Drugs identified in Urine by Screen method (03-13-2017 13:15) Ampheta 03-13-2 NEGATIV <1000 complet mine 017 E ed [Presen 13:15 ce] in Urine by Screen method 11-Hydr 2 NEGATIV <50 complet oxy 017 E ed delta-9 13:15 tetrahy drocann abinol [Presen ce] in Unspeci fied specime n SYPHILIS IGG TEST (EIA) (06-10-2014 08:00) Paralegals: Sadie Marquez MD FCAP Lab: [facility] of Laboratory Services Lab Address: [address] [place] [address], [address] [place] [address] 06-10-2014 8:00 am Specimen Collection Start Date/Time: Sales Record Clerk: Specimen Ming'valdez 06-15-2014 9:29 am Date/Time: Ordering Physician: [facility] 06-16-2014 8:31 am Results Rpt/Status Change [...] Health Insurance Portability and Accountability Act. CHART [id number] complet NUMBER 014 ed 08:00 SPECIME BLOOD [...] complet N 014 ed SOURCE 08:00 CHART [id number] complet NUMBER 014 ed 08:00 Trepone Pending complet ma 014 ed pallidu 08:00 m IgG Ab [Presen ce] in Serum by Immunoa ssay Procedures Procedure DOS Code Location Performer Comment DRUG TEST 28860 [facility] QUAL DIR INC INC OPTICAL OBS PER DAY THERAPEUT 47649 [facility] IC [facility] PROPHYLAC INC INC TIC/DX INJECTION SUBQ/IM DRUG TEST 57553 [facility] QUAL DIR INC INC OPTICAL OBS PER DAY DRUG TEST 08707 [facility] QUAL DIR INC INC OPTICAL OBS PER DAY RADIOLOGI 08506 [facility] C [facility] EXAMINATI INC INC ON PELVIS 1/2 VIEWS RADEX 62850 [facility] SPINE [facility] LUMBOSACR INC INC AL MINIMUM 4 VIEWS RADEX 45119 [facility] SACRUM & 7 [facility] COCCYX INC INC MINIMUM 2 VIEWS DRUG TEST 22334 [facility] PRSMV [facility] QUAL DIR INC INC OPTICAL OBS PER DAY COMPREHEN 43754 [facility] SIVE [facility] METABOLIC INC INC PANEL FINAL G9551 [facility] ABD 7 MEDICAL IMAG STS IMAGING W/[place]: [place] [address] W[facility]FUSION [facility] THERAPY/P INC INC ROPHYLAXI S /DX 1ST TO 1 HR THERAPEUT 49579 [facility] IC [facility] INJECTION INC INC IV PUSH EACH NEW DRUG FINAL G9638 [place] [facility] REPORTS 7 MEDICAL W/O DOC IMAGING 1/MORE ASS DOSE REDUCTION TECH URNLS DIP 15718 [facility] STICK/TAB INC INC LET RGNT AUTO W/O MICROSCOP Y BLOOD 31458 [facility] COUNT [facility] COMPLETE INC INC AUTO&[place] [address] W[facility] ABDOMEN & [facility] PELVIS INC INC W/O CONTRAST MATERIAL THER 22562 [facility] PROPH/DX [address] [facility] NJX EA INC INC SEQL IV PUSH SBST/DRUG FAC RADEX 20712 [facility] HIPS [facility] BILATERAL INC INC WITH PELVIS 2 VIEWS RADEX 45054 [facility]ANG SACRUM & 7 MEDICAL COCCYX IMAGING MINIMUM 2 ASS VIEWS RADEX 24345 [place] POLY HIPS 7 MEDICAL BILATERAL IMAGING WITH ASS PELVIS 3-4 VIEWS RADEX 73933 KELSIE PANG ANKLE 7 MEDICAL COMPLETE IMAGING MINIMUM 3 ASS VIEWS DRUG TEST 96137 [facility] PRSMV [facility] QUAL DIR INC INC OPTICAL OBS PER DAY DRUG TEST G0481 [facility] DEFINITV [address] [facility] [address] [address] ID INC INC METH P DAY 8-14 DRUG CL FINAL RPT G[address]/MRI 7 MEDICAL CHEST/NCK IMAGING /U/S NO ASS THR NOD<1.0 CM BASIC 46739 [facility] METABOLIC 7 [facility] PANEL INC INC CALCIUM TOTAL FINAL G9638 KELSIE PANG REPORTS 7 MEDICAL W/O DOC IMAGING 1/MORE ASS DOSE REDUCTION TECH CT SOFT 20019 KEL[facility]E PANG TISSUE 7 MEDICAL NECK IMAGING W/CONTRAS ASS T MATERIAL BLOOD 64527 [facility] COUNT 7 [facility] COMPLETE INC INC AUTO&AUTO DIFRNTL WBC DRUG 81505 [facility] SCREENING 7 [facility] OPIOIDS INC INC & OPIATE ANALOGS 5/MORE DRUG TEST 48528 [facility] PRSMV [facility] QUAL DIR INC INC OPTICAL OBS PER DAY THERAPEUT 15541 [facility] IC PX 1/> 7 [facility] AREAS INC INC EACH 15 MIN EXERCISES THERAPEUT 31636 [facility] IC PX 1/> 7 [facility] AREAS INC INC EACH 15 MIN EXERCISES OPHTH 22735 [facility] 7 XM&EVAL COMPRE NEW PT 1/> VST THERAPEUT 79311 [facility] IC PX 1/> 7 [facility] AREAS INC INC EACH 15 MIN EXERCISES DRUG TEST 15527 [facility] PRSMV 7 [facility] QUAL DIR INC INC OPTICAL OBS PER DAY DRUG 96212 [facility] SCREENING 7 [facility] OPIOIDS INC INC & OPIATE ANALOGS 5/MORE PHYSICAL 02873 [facility] THERAPY 7 [facility] EVALUATIO INC INC N MOD COMPLEX 30 MINS RADIOLOGI 17617 [facility] C [facility] EXAMINATI [place] [address] [facility] STREPTOCO 7 [facility] CCUS INC INC GROUP A CUL BACT 17566 [facility] XCPT [address] [facility] URINE INC INC BLOOD/[place] [address] [facility] BLOOD/URI 7 [facility] C ACID INC INC ANTINUCLE 34057 [facility] AR [address] [facility] ANTIBODIE INC INC S ANITA HEMOGLOBI 89513 [facility] N [address] [facility] GLYCOSYLA INC INC MONSERRAT A1C DRUG TEST 78583 [facility] PRSMV [address] [facility] QUAL DIR INC INC OPTICAL OBS PER DAY C-REACTIV 02281 [facility] E PROTEIN [address] [facility] INC INC COMPREHEN 90434 [facility] SIVE [address] [facility] METABOLIC INC INC PANEL LIPID 71257 [facility] PANEL [address] [facility] INC INC RHEUMATOI 41301 [facility] D FACTOR [address] [facility] QUANTITAT INC INC JOAN BLOOD 53383 [facility] COUNT [address] [facility] COMPLETE INC INC AUTO&AUTO DIFRNTL WBC SEDIMENTA 33697 [facility] TIJOSHUA RATE [facility] [place] [address] [facility] FREE [address] [facility] [place] [address] [facility] THYROID [address] [facility] STIMULATI INC INC NG HORMONE TSH URNLS DIP 18428 [facility] [address] [facility] STICK/TAB INC INC LET REAGENT AUTO MICROSCOP Y RADIOLOGI 28165 [facility] EXAM 7 MEDICAL CHEST 2 IMAGING VIEWS ASS FRONTAL&L ATERAL IAADIADOO 12570 [facility] [address] [facility] STREPTOCO INC INC CCUS GROUP A IAADIADOO 90391 [facility] [address] [facility] INFLUENZA INC INC Encounters Encounter Start End Date Code Location Performer Type Date HOSPITAL [facility] - [facility] OUTPATIEN INC T EMERGENCY [address] [facility] DEPARTMEN INC T VISIT LOW/MODER SEVERITY HOSPITAL WAN - [address] [facility] OUTPATIEN INC T EMERGENCY 68853 [facility] FERREIRA 7 7 PHYSICIAN DEPARTMEN S, [facility] T VISIT HIGH/URGE NT SEVERITY HOSPITAL WAN - [address] [facility] OUTPATIEN INC T HOSPITAL WAN - [address] [facility] T EMERGENCY 32890 [facility] T VISIT LOW/MODER SEVERITY EMERGENCY 23893 MARRY LIVINGSTON 7 7 PHYSICIAN DEPARTMEN S, [facility] T VISIT [facility]IGH/URGE NT SEVERITY HOSPITAL WAN - [address] [facility] WAN - [address] [facility] - [address] [facility] T EMERGENCY 0[address] W[address] [facility]IGH SEVERITY& THREAT [facility] WAN - [address] [facility] T EMERGENCY 54987 [facility] 7 [facility] T VISIT LOW/MODER SEVERITY EMERGENCY [id number] MARRY FITZPATRICK 7 7 PHYSICIAN JR DEPARTMEN S, [facility] T VISIT HIGH/URGE NT SEVERITY HOSPITAL WAN - [address] [facility] T [facility] WAN - [address] [facility] T EMERGENCY 54359 MARRY FERREIRA DEPT 7 7 PHYSICIAN VISIT S, [facility] HIGH SEVERITY& THREAT FUNCJ EMERGENCY 50868 WAN 7 7 [facility] T VISIT LOW/MODER SEVERITY HOSPITAL WAN - 7 7 [facility] OUTPAT[facility]EN [facility] T HOSPITAL WAN - 7 7 [facility] T OFFICE [id number] [facility] 7 7 PHYSICIAN T VISIT S GROUP 25 MINUTES HOSPITAL WAN - 7 7 [facility] WAN - 7 7 [facility] T HOSPITAL WAN - 7 7 [facility] OUTPAT[facility]EN [facility] T EMERGENCY [id number] MARRY TEMPLE 7 7 PHYSICIAN U [facility] S, [facility] T VISIT HIGH/URGE NT SEVERITY EMERGENCY 90178 WAN 7 7 [facility] T VISIT LOW/MODER SEVERITY HOSPITAL WAN - 7 7 [facility]PAT[facility] WAN - [address] [facility] T EMERGENCY 13838 WAN 7 7 [facility] T VISIT LOW/MODER SEVERITY EMERGENCY 96008 WAN 7 7 [facility] T VISIT [facility]OW/MODER SEVERITY HOSPITAL WAN - [address] [facility] T EMERGENCY 83097 [facility] RICHARDLEON 7 7 EMERGENCY N [facility] T VISIT PHYSICIAN MODERATE S SEVERITY OFFICE 28174 WAN NAVAS 7 7 [facility] T NEW 10 INC [facility]
--- OUTSIDE RECORDS SUMMARY | 2017-07-26 15:43 | External Medical Summary Rpt | CCD ---
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 Name Role Phone PANG, PANG Unavailable Unavailable [facility] Unavailable Unavailable PHYSICIANS, [facility] DEREK REED Unavailable Unavailable JR FITZPATRICK FULLER, Unavailable Unavailable MIKI MICHELLE Unavailable Unavailable [facility] Un[facility] Un[facility], [facility] DOWD, DOWD Unavailable Unavailable [facility], DOWD Unavailable [facility]available [facility], Unavailable Unavailable [facility] Unavailable Unavailable [facility], [facility], Unavailable Unavailable PLL[facility], [facility] RENUSCH, RENUSCH Unavailable Unavailable MARILY, Unavailable Unavailable MARILY SORUBY, Unavailable Unavailable SOTINGEANU Purpose Continuity of Care Document - 04-29-2014 through 2016 Problems Code Diagnosis DOS Provider Status [id number] OTHER LONG 05-18-2017 [facility] CURRENT INC DRUG THERAPY G8929 OTHER 05-11-2017 [facility]RONIC [facility] PAIN PLL[facility] I10 ESSENTIAL 05-11-2017 [facility] HYPERTENSIO INC N M545 LOW BACK 05-11-2017 [facility] PAIN [facility] Z720 TOBACCO USE 05-11-2017 [facility] [id number] PAIN IN 04-06-2017 [facility] 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 [facility] NEC [id number] CONTUSION 04-06-2017 [facility] LOWER BACK PHYSICIANS, & PELVIS PLLC INITIAL ENCOUNTER [id number] STRAIN 04-06-2017 [facility] MUSCLE [facility], FASCIA & PLLC TENDON LOW BACK INITIAL N23 UNSPECIFIED 03-25-2017 [facility] RENAL [facility], COLIC PLLC R1012 LEFT UPPER 03-25-2017 [facility] PAIN INC R109 UNSPECIFIED 03-25-2017 [facility] ABDOMINAL [facility], PAIN PLLC H97858 PAIN IN 03-16-2017 [facility] LEFT [facility]ICAL SHOULDER [facility] Z69372 PAIN IN 03-16-2017 [facility]IP [facility] Z60010 PAIN IN 03-16-2017 [facility] ANKLE [facility] [id number] CONTUSION 03-16-2017 [facility] OF LEFT HIP PHYSICIANS, INITIAL PLLC ENCOUNTER [id number] CONTUSION 03-16-2017 [facility] OF LEFT PHYSICIANS, LOWER LEG PLLC INITIAL ENCOUNTER G4001TW CONTUSION 03-16-2017 [facility] OF LEFT [facility] [...] RADICULOPAT 01-17-2017 [facility] HY LUMBAR PHYSICIANS [facility] GROUP R768 OTH SPEC 01-17-2017 [facility] ABNORMAL PHYSICIANS IMMUNOLOGIC GROUP AL FIND IN SERUM K219 GASTRO-ESOP 01-14-2017 [facility] H REFLUX [facility], DISEASE PLLC WITHOUT ESOPHAGITIS R4702 DYSPHASIA 01-14-2017 [facility] [id number] UNS FB 01-14-2017 [facility] PHARYNX [facility], CAUSING OTH PLLC INJURY INIT ENC Z0000 ENCOUNTER 01-09-2017 [facility] MED EXAM INC W/O ABNORMAL FIND M5116 INTERVERTEB 01-07-2017 [facility]C [facility] D/O INC W/RADICULOP ATHY LUMB RGN J209 ACUTE 12-28-2016 [facility] UNSPECIFIED INC R0602 SHORTNESS 12-28-2016 [facility] MEDICAL [facility] [id number] SPRAIN 12-10-2016 [facility] CERVICAL PHYSICIANS [...] MG #3 TA 93 BL 8 ET SD 59 09 10 10 5 00 RI [...] 1 05 PH CE AR TA MA IL CY NO PH #3 EN 93 8 5- 32 5 LI 00 09 09 30 30 00 EA Ac SI 37 -0 -[address] ti NO 82 3- 9- 00 00 SI ve SD 07 20 20 50 DE IL 41 [...] 5 00 PH CE AR TA MA IL CY NO PH OF EN CY NT [...] ve LO 37 20 20 49 DE SD 40 17 17 76 AM 1 51 PH AR 10 MA CY MG OF TA CY BL NT ET HI AN A IN C LI 00 07 08 30 30 00 EA Ac SI 18 -3 -[address] ti NO 50 1- 5 00 SI ve SD 61 20 20 49 DE IL 01 17 17 63 0 26 PH 10 AR MA MG CY TA OF BL CY ET NT HI AN A IN C BU 08 60 30 00 EA Ac SD 59 -3 -[address] ti [...] 47 CE 0 84 PH TA AR IL MA NO CY PH EN OF CY 7. NT 5- HI 32 AN 5 A IN C BU 60 07 07 60 30 00 EA Ac SD 50 -0 -[address] ti [...] 50 1- 8- 00 00 SI ve SD 61 20 20 48 DE IL 01 [...] 5 80 PH CE AR TA MA IL CY NO PH OF CY 7. NT [...] 50 7- 0- 00 00 SI ve SD 61 20 20 48 DE IL 01 [...] 5 05 PH CE AR TA MA IL CY NO PH OF CY 7. NT 5- HI 32 AN 5 A IN C BU 60 05 06 60 30 00 EA Ac SD 50 -1 -[address] ti [...] 5 65 PH CE AR TA MA IL CY NO PH OF CY 7. NT [...] 50 8- 2- 00 00 SI ve SD 61 20 20 48 DE IL 01 17 17 65 0 64 PH 10 AR MA MG CY TA OF BL CY ET NT HI AN A IN C BU 60 04 05 60 30 00 WA Ac SD 50 -1 -1 .0 00 L- ti [...] 1 89 PH CE AR TA MA IL CY NO PH #3 93 7. 8 5- 32 5 LI 54 04 05 30 30 00 WA Ac SI 45 -1 -0 .0 00 L- ti NO 80 2- 5- 00 07 MA ve SD 99 20 20 48 RT IL 71 [...] CY CA #5 PS 91 UL E SD 00 04 04 10 5 00 WA [...] 1 04 PH CE AR TA MA IL CY NO PH #5 EN 91 5- [...] AI ZA 75 17 17 38 D SD 0 05 PH IN AR E MA 10 CY MG #3 93 TA 8 BL ET NA 68 03 03 30 15 00 RI Ac SD 46 -0 -3 .0 00 TE ti [...] SQUARE METERS Comment: If this patient is -Nauruan, then multiply the Comment: result by 1.210. [...] blood 19:45 platele t mean volume mouna Sebastian % = 3.6 % 1.7-9.3 complet 017 [...] n SYPHILIS IGG TEST (EIA) (06-10-2014 08:00) Cad Technician: Sadie Marquez MD FCAP Lab: [facility] Division of Laboratory Services Lab Address: [address] [place] [address], [address] [place] [address] 06-10-2014 8:00 am Specimen Collection Start Date/Time: Body Shop Supervisor: Specimen Ming'valdez 06-15-2014 9:29 am Date/Time: Ordering Physician: [facility] 06-16-2014 8:31 am Results Rpt/Status Change Date/Time: This report contains patient information that must be protected in accordance with the Health Insurance Portability and Accountability Act. SYPHILI NON-GHSASAN complet S IGG 014 CTIVE ed TEST 08:00 (EIA) Comment: METHOD OF ANALYSIS: EIA Comment: NORMAL RANGE: NON-REACTIVE Comment: \E\.br\E\This report contains patient information that must be protected in accordance with the Health Insurance Portability and Accountability Act. CHART [id number] complet NUMBER 014 ed 08:00 SPECIME BLOOD [...] complet N 014 ed SOURCE 08:00 CHART [id number] complet NUMBER 014 ed 08:00 Trepone Pending complet ma 014 ed pallidu 08:00 m IgG Ab [Presen ce] in Serum by Immunoa ssay Procedures Procedure DOS Code Location Performer Comment DRUG TEST 66346 [facility] PR[facility]V [facility] QUAL DIR INC INC OPTICAL OBS PER DAY THERAPEUT 29443 [facility] IC [facility] PROPHYLAC INC INC TIC/DX INJECTION SUBQ/IM DRUG TEST 61568 [facility]V [facility] QUAL DIR INC INC OPTICAL OBS PER DAY DRUG TEST 51458 [facility] PRSMV [facility] QUAL DIR INC INC OPTICAL OBS PER DAY RADIOLOGI 77313 [facility] C [facility] EXAMINATI INC INC ON PELVIS 1/2 VIEWS RADEX 10681 [facility] SPINE 7 [facility] LUMBOSACR INC INC AL MINIMUM 4 VIEWS RADEX 37942 [facility] SACRUM & 7 [facility] COCCYX INC INC MINIMUM 2 VIEWS DRUG TEST 42290 [facility] PRSMV [facility] QUAL DIR INC INC OPTICAL OBS PER DAY COMPREHEN 13569 [facility] SIVE 7 [facility] METABOLIC INC INC PANEL FINAL G9551 [facility] REED REPR ABD 7 MEDICAL IMAG STS IMAGING W/[place]: [place] [address] W[facility] INFUSION 7 [facility] THERAPY/P INC INC ROPHYLAXI S /DX 1ST TO 1 HR THERAPEUT 13074 [facility] IC [facility] INJECTION INC INC IV PUSH EACH NEW DRUG FINAL G9638 [facility] DEREK REPORTS 7 MEDICAL W/O DOC IMAGING 1/MORE ASS DOSE REDUCTION TECH URNLS DIP 56631 [facility] STICK/TAB INC INC LET RGNT AUTO W/O MICROSCOP Y BLOOD 74221 [facility] COUNT 7 [facility] COMPLETE INC INC AUTO&[place] [address] [facility] ABDOMEN & [facility] PELVIS INC INC W/O CONTRAST MATERIAL THER 42676 [facility] PROPH/DX [facility] NJX EA INC INC SEQL IV PUSH SBST/DRUG FAC RADEX 57923 [facility] HIPS [facility] BILATERAL INC INC WITH PELVIS 2 VIEWS RADEX 91146 [facility]ie PANG SACRUM & 7 MEDICAL COCCYX IMAGING MINIMUM 2 ASS VIEWS RADEX 09561 [facility] POLY HIPS 7 MEDICAL BILATERAL IMAGING WITH ASS PELVIS 3-4 VIEWS RADEX 89234 KELSIE PANG ANKLE 7 MEDICAL COMPLETE IMAGING MINIMUM 3 ASS VIEWS DRUG TEST 60281 [facility] PRSMV 7 [facility] QUAL DIR INC INC OPTICAL OBS PER DAY DRUG TEST G0481 [facility] DEFINITV [address] [address] ID INC INC METH P DAY 8-14 DRUG CL FINAL RPT G[address]/MRI 7 MEDICAL CHEST/NCK IMAGING /U/S NO ASS THR NOD<1.0 CM BASIC 03935 [facility] METABOLIC 7 [facility] PANEL INC INC CALCIUM TOTAL FINAL G9638 KELSIE PANG REPORTS 7 MEDICAL W/O DOC IMAGING 1/MORE ASS DOSE REDUCTION TECH CT SOFT 21777 KELSIE PANG TISSUE 7 MEDICAL NECK IMAGING W/CONTRAS ASS T MATERIAL BLOOD 29092 [facility] COUNT 7 [facility] COMPLETE INC INC AUTO&AUTO DIFRNTL WBC DRUG 22587 [facility] SCREENING 7 [facility] OPIOIDS INC INC & OPIATE ANALOGS 5/MORE DRUG TEST 75008 [facility] PRSMV 7 [facility] QUAL DIR INC INC OPTICAL OBS PER DAY THERAPEUT 49394 W[facility] IC PX 1/> 7 [facility] AREAS INC INC EACH 15 MIN EXERCISES THERAPEUT 76385 [facility] IC PX 1/> 7 [facility] AREAS INC INC EACH 15 MIN EXERCISES OPHTH 66417 [facility] 7 XM&EVAL COMPRE NEW PT 1/> VST THERAPEUT 66196 [facility] IC PX 1/> 7 [facility] AREAS INC INC EACH 15 MIN EXERCISES DRUG TEST 53531 [facility] PRSMV 7 [facility] QUAL DIR INC INC OPTICAL OBS PER DAY DRUG 44061 [facility] SCREENING 7 [facility] OPIOIDS INC INC & OPIATE ANALOGS 5/MORE PHYSICAL 76540 [facility] THERAPY 7 [facility] EVALUATIO INC INC N MOD COMPLEX 30 MINS RADIOLOGI 06790 [facility] C 7 [facility] EXAMINATI [place] [address] [facility] STREPTOCO 7 [facility] CCUS INC INC GROUP A CUL BACT 69390 [facility] XCPT 7 [facility] URINE INC INC BLOOD/[place] [address] [facility] BLOOD/URI 7 [facility] C ACID INC INC ANTINUCLE 93227 [facility] AR 7 [facility] ANTIBODIE INC INC S ANITA HEMOGLOBI 49528 [facility] N 7 [facility] GLYCOSYLA INC INC MONSERRAT A1C DRUG TEST 70364 [facility] PRSMV 7 [facility] QUAL DIR INC INC OPTICAL OBS PER DAY C-REACTIV 02538 [facility] E PROTEIN 7 [facility] INC INC COMPREHEN 64821 [facility] SIVE 7 [facility] METABOLIC INC INC PANEL LIPID 23536 [facility] PANEL 7 [facility] INC INC RHEUMATOI 91295 [facility] D FACTOR 7 [facility] QUANTITAT INC INC JOAN BLOOD 27876 [facility] COUNT 7 [facility] COMPLETE INC INC AUTO&AUTO DIFRNTL WBC SEDIMENTA 08547 [facility] TIJOSHUA RATE 7 [facility] RBC [place] [address] [facility] FREE 7 [facility] [place] [address] [facility] THYROID 7 [facility] STIMULATI INC INC NG HORMONE TSH URNLS DIP 97644 [facility] STICK/TAB INC INC LET REAGENT AUTO MICROSCOP Y RADIOLOGI 09447 [facility] EXAM 7 MEDICAL CHEST 2 IMAGING VIEWS ASS FRONTAL&L ATERAL IAADIADOO 88018 [facility] 7 [facility] STREPTOCO INC INC CCUS GROUP A IAADIADOO 09010 [facility] INFLUENZA INC INC Encounters Encounter Start End Date Code Location Performer Type Date HOSPITAL [facility] - 7 [facility] OUTPATIEN INC T EMERGENCY 16711 W[facility] 7 7 [facility] DEPARTMEN INC T VISIT LOW/MODER SEVERITY HOSPITAL [facility] - 7 7 [facility] OUTPATIEN INC T EMERGENCY 29987 [facility] FERREIRA 7 7 PHYSICIAN DEPARTMEN S, [facility] T VISIT HIGH/URGE NT SEVERITY HOSPITAL [facility] - 7 7 [facility] OUTPATIEN INC T HOSPITAL W[facility] - 7 7 [facility] OUTPATIEN INC T EMERGENCY 34674 [facility] T VISIT LOW/MODER SEVERITY EMERGENCY 72098 [facility] [place] 7 7 PHYSICIAN DEPARTMEN S, [facility] T VISIT HIGH/URGE NT SEVERITY HOSPITAL W[facility] - 7 7 [facility] OUTPATIEN INC HOSPITAL [facility] - 7 7 [facility] OUTPATIEN INC T HOSPITAL W[facility] - 7 7 [facility] OUTPATIEN INC T EMERGENCY 63196 W[facility] DEPT 7 7 [facility] VISIT INC HIGH SEVERITY& THREAT [facility] WAN - 7 7 [facility] OUTPATIEN INC T EMERGENCY 45606 [facility] T VISIT LOW/MODER SEVERITY EMERGENCY 14030 M[facility]Y FITZPATRICK 7 7 PHYSICIAN JR DEPARTMEN S, [facility] T VISIT HIGH/URGE NT SEVERITY HOSPITAL W[facility] - 7 7 [facility] OUTPATIEN INC T HOSPITAL W[facility] - 7 7 [facility] OUTPATIEN INC T EMERGENCY 61232 MARRY FERREIRA DEPT 7 7 PHYSICIAN VISIT S, [facility] HIGH SEVERITY& THREAT [facility] EMERGENCY 64969 W[facility] 7 7 [facility] T VISIT LOW/MODER SEVERITY HOSPITAL W[facility] - 7 7 [facility] OUTPATIEN [facility] T HOSPITAL W[facility] - 7 7 [facility] OUTPATIEN [facility] T OFFICE 84538 [facility] 7 7 PHYSICIAN T VISIT S GROUP 25 MINUTES HOSPITAL W[facility] - 7 7 [facility] OUTPATIEN [facility] W[facility] - 7 7 [facility] OUTPATIEN [facility] T HOSPITAL [facility] - 7 7 [facility] OUTPATIEN [facility] T EMERGENCY 64167 MARRY TEM[place] 7 7 PHYSICIAN U [facility] S, [facility] T VISIT HIGH/URGE NT SEVERITY EMERGENCY 37002 [facility] 7 7 [facility] T VISIT LOW/MODER SEVERITY HOSPITAL W[facility] - 7 7 [facility] OUTPATIEN [facility] W[facility] - 7 7 [facility] T EMERGENCY 85920 W[facility] 7 7 [facility] T VISIT LOW/MODER SEVERITY EMERGENCY 61162 W[facility] 7 7 [facility] T VISIT LOW/MODER SEVERITY HOSPITAL W[facility] - 7 7 [facility] T EMERGENCY 51577 [facility]ICHARD[facility] 7 7 EMERGENCY N [facility] T VISIT PHYSICIAN MODERATE S SEVERITY OFFICE 37012 [facility] NAVAS 7 7 [facility] T NEW 10 INC MINUTES HOSPITAL [facility] - 7 7 [facility] T
--- OUTSIDE RECORDS SUMMARY | 2017-07-26 15:46 | External Medical Summary Rpt | CCD ---
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 Name Role Phone PANG, PANG Unavailable Unavailable [facility] Unavailable Unavailable PHYSICIANS, [facility] DEREK REED Unavailable Unavailable JR FITZPATRICK FULLER, Unavailable Unavailable JR MIKI [facility] Unavailable Unavailable [facility] Unavailable Unavailable INC, [facility] D[facility], D[facility]D Unavailable Unavailable [facility], DOWD Unavailable Unavailable [facility], Unavailable Unavailable [facility] Unavailable Unavailable IM[facility]ING [facility], [facility], Unavailable Unavailable PLL[facility], [facility] RENUSCH, RENUSCH Unavailable Unavailable [facility], Unavailable Unavailable [facility] SOTINGEANU, Unavailable Unavailable SOTINGEANU Purpose Continuity of Care Document - 11-22-2016 through 2016 Problems Code Diagnosis DOS Provider Status [id number] OTHER LONG 05-18-2017 [facility] CURRENT INC DRUG THERAPY G8929 OTHER 05-11-2017 [facility]RON[facility] PAIN PLL[facility] I10 ESSENTIAL 05-11-2017 [facility] HYPERTENSIO INC N M545 LOW BACK 05-11-2017 [facility] PA[facility] Z720 TOBACCO USE 05-11-2017 [facility] INC [id number] PAIN IN 04-06-2017 [facility] 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 04-06-2017 [facility] NEC [id number] CONTUSION 04-06-2017 [facility] LOWER BACK PHYSICIANS, & PELVIS PLLC INITIAL ENCOUNTER [id number] STRAIN 04-06-2017 [facility] MUSCLE [facility], FASCIA & PLLC TENDON LOW BACK INITIAL N23 UNSPECIFIED 03-25-2017 [facility] RENAL [facility], COLIC PLLC R1012 LEFT UPPER 03-25-2017 [facility] PAIN INC R109 UNSPECIFIED 03-25-2017 [facility] ABDOMINAL [facility], PAIN PLLC E77235 PAIN IN 03-16-2017 [facility] SHOULDER [facility] Y72819 PAIN IN 03-16-2017 [facility]IP [facility] N83960 PAIN IN 03-16-2017 [facility]KLE [facility] [id number] CONTUSION 03-16-2017 [facility] OF LEFT HIP PHYSICIANS, INITIAL PLLC ENCOUNTER [id number] CONTUSION 03-16-2017 [facility] OF LEFT PHYSICIANS, LOWER LEG PLLC INITIAL ENCOUNTER [id number] CONTUSION 03-16-2017 [facility] [...] 02-02-2017 [facility] IA BILATERAL M5416 RADICULOPAT 01-17-2017 [facility] R768 OTH SPEC 01-17-2017 [facility] ABNORMAL [facility] IMMUNOLOGIC GROUP AL FIND IN SERUM K219 GASTRO-ESOP 01-14-2017 [facility] H REFLUX [facility], DISEASE PLLC WITHOUT ESOPHAGITIS R4702 DYSPHASIA 01-14-2017 [facility] [id number] UNS FB 01-14-2017 [facility] PHARYNX [facility], CAUSING OTH PLLC INJURY INIT ENC Z0000 ENCOUNTER 01-09-2017 [facility] MED EXAM INC W/O ABNORMAL FIND M5116 INTERVERTEB 01-07-2017 [facility] D/O INC W/RADICULOP ATHY LUMB RGN J209 ACUTE 12-28-2016 [facility] UNSPECIFIED INC R0602 SHORTNESS 12-28-2016 [facility] [id number] SPRAIN 12-10-2016 [facility] CERV[facility] [...] 1 05 PH CE AR TA [place] CY NO PH #3 EN 93 8 [...] 5 00 PH CE AR TA [place] CY NO PH OF EN CY NT [...] 50 1- 5- 00 00 SI ve SD 61 20 20 49 DE [place] 01 17 17 63 0 26 PH 10 AR MA MG CY TA OF BL CY ET NT HI AN A IN C BU 00 07 08 60 30 00 EA Ac SD [...] 47 CE 0 84 PH TA AR [place] MA NO CY PH EN OF CY [...] 5 80 PH CE AR TA [place] CY NO PH OF CY 7. NT [...] 5 05 PH CE AR TA [place] CY NO PH OF CY 7. NT [...] 02 10 60 30 00 EA Ac SD 50 [...] 5 65 PH CE AR TA [place] CY NO PH OF CY 7. NT [...] 1 89 PH CE AR TA [place] CY NO PH #3 93 7. 8 [...] PO 62 04 05 51 30 00 PA Ac LY 17 -1 -0 0. 00 L- ti ET 50 2- 5- 00 07 MA ve HY 44 20 20 0 48 RT LE 21 17 17 20 NE 5 03 PH AR GL MA YC CY OL #5 33 91 50 PO WD HY 00 04 04 [address] 40 -0 -2 .0 00 L- ti OC 60 4- 8- 00 02 MA ve OD 12 20 20 23 RT ON 30 17 17 98 -A 1 04 PH CE AR TA MA [place] CY NO PH #5 EN 91 5- 32 5 GA 53 04 04 90 30 00 PA Ac BA 74 -0 -2 .0 00 L- ti PE 60 4- 8- 00 07 MA ve NT 10 20 20 48 RT IN 10 17 17 04 5 51 PH 10 AR 0 MA MG CY CA #5 PS 91 UL E SD 00 04 04 10 5 00 PA Ac ED 14 -0 -2 .0 00 L- ti NI 39 4- 8- 00 07 MA ve SO 73 20 20 48 RT NE 80 17 17 00 5 75 PH 20 AR MA MG CY TA #5 BL 91 ET AM 00 03 04 20 10 00 PA Ac OX 78 -2 -2 .0 00 L- ti -C 11 3- 1- 00 07 MA ve LA 85 20 20 47 RT V 22 17 17 82 87 0 43 PH 5- AR 12 MA 5 CY MG #5 TA 91 BL ET BE 68 03 04 30 10 00 PA Ac NZ 38 -2 -2 .0 00 [...] DOS Code Location Performer Comment DRUG TEST 81626 [facility] QUAL DIR INC INC OPTICAL OBS PER DAY THERAPEUT 74105 [facility] IC [facility] PROPHYLAC INC INC TIC/DX INJECTION SUBQ/IM DRUG TEST 26593 [facility] QUAL DIR INC INC OPTICAL OBS PER DAY DRUG TEST 31659 [facility] QUAL DIR INC INC OPTICAL OBS PER DAY RADEX 13026 [facility] SPINE 7 MEDICAL LUMBOSACR IMAGING AL ASS MINIMUM 4 VIEWS RADEX 47806 [facility] SACRUM & 7 MEDICAL COCCYX IMAGING MINIMUM 2 ASS VIEWS RADIOLOGI 91855 [facility] C 7 MEDICAL EXAMINATI IMAGING ON PELVIS ASS 1/2 VIEWS DRUG TEST 32982 [facility] QUAL DIR INC INC OPTICAL OBS PER DAY COMPREHEN 56202 [facility] SIVE 7 [facility] [place] [address] [facility] INFUSION [facility] THERAPY/P INC INC ROPHYLAXI S /DX 1ST TO 1 HR THERAPEUT 18637 [facility] INJECTION INC INC IV PUSH EACH NEW DRUG FINAL G9551 [facility] REED REPR ABD 7 MEDICAL IMAG STS IMAGING W/O ASS INCIDNT FND LES NTD: THER 46904 [facility] PROPH/DX 7 [facility] NJX EA INC INC SEQL IV PUSH SBST/[place] [address] [facility] ABDOMEN & 7 [facility] PELVIS INC INC W/O CONTRAST MATERIAL FINAL G9638 [facility] REED REPORTS 7 MEDICAL W/O DOC IMAGING 1/MORE ASS DOSE REDUCTION TECH URNLS DIP 90420 [facility] STICK/TAB INC INC LET RGNT AUTO W/O MICROSCOP Y BLOOD 84970 [facility] COUNT [facility] COMPLETE INC INC AUTO&AUTO DIFRNTL WBC RADEX 68463 [facility] HIPS [facility] BILATERAL INC INC WITH PELVIS 2 VIEWS RADEX 36463 [facility] PANG ANKLE 7 MEDICAL COMPLETE IMAGING MINIMUM 3 ASS VIEWS RADEX 18620 [facility]ANG HIPS 7 MEDICAL BILATERAL IMAGING WITH ASS PELVIS 3-4 VIEWS RADEX 94735 [facility]E PANG SACRUM & 7 MEDICAL COCCYX IMAGING MINIMUM 2 ASS VIEWS DRUG TEST 06170 [facility] QUAL DIR INC INC OPTICAL OBS PER DAY DRUG TEST G0481 [facility] DEFINITV [address] [facility] [address] [address] ID INC INC METH P DAY 8-14 DRUG CL BASIC 10627 [facility] METABOLIC [facility] PANEL INC INC CALCIUM TOTAL CT SOFT 96105 [facility] TISSUE [facility] NECK INC INC W/CONTRAS T MATERIAL FINAL G9638 [facility]E PANG REPORTS 7 MEDICAL W/O DOC IMAGING 1/MORE ASS DOSE REDUCTION TECH FINAL RPT G[address]/MRI 7 MEDICAL CHEST/NCK IMAGING /U/S NO ASS THR NOD<1.0 CM BLOOD 29608 [facility] COUNT [facility] COMPLETE INC INC AUTO&AUTO DIFRNTL WBC DRUG 85028 [facility] SCREENING 7 [facility] OPIOIDS INC INC & OPIATE ANALOGS 5/MORE DRUG TEST 22253 [facility] QUAL DIR INC INC OPTICAL OBS PER DAY THERAPEUT 76600 [facility]AN [facility] IC PX 1/> 7 [facility] AREAS INC INC EACH 15 MIN EXERCISES THERAPEUT 42131 [facility] IC PX 1/> 7 [facility] AREAS INC INC EACH 15 MIN EXERCISES OPHTH 13659 [facility] 7 XM&EVAL COMPRE NEW PT 1/> VST THERAPEUT 41100 [facility] IC PX 1/> 7 [facility] AREAS INC INC EACH 15 MIN EXERCISES DRUG TEST 21755 [facility] PRSMV 7 [facility] QUAL DIR INC INC OPTICAL OBS PER DAY DRUG 84087 [facility] SCREENING 7 [facility] OPIOIDS INC INC & OPIATE ANALOGS 5/MORE PHYSICAL 95009 [facility] THERAPY 7 [facility] EVALUATIO INC INC N MOD COMPLEX 30 MINS RADIOLOGI 02342 [facility] C 7 [facility] EXAMINATI INC INC ON NECK SOFT TISSUE CUL BACT 48580 [facility] XCPT 7 [facility] URINE INC INC BLOOD/[place] [address] [facility] STREPTOCO 7 [facility] [address] [facility] FREE 7 [facility] [place] [address] [facility] THYROID 7 [facility] STIMULATI INC INC NG HORMONE TSH SEDIMENTA 49157 [facility] TIJOSHUA RATE 7 [facility] RBC INC INC NON-AUTOM ATED C-REACTIV 45655 [facility] E PROTEIN 7 [facility] INC INC HEMOGLOBI 62679 [facility] N 7 [facility] GLYCOSYLA INC INC MONSERRAT A1C BLOOD 28471 [facility] COUNT 7 [facility] COMPLETE INC INC AUTO&[place] [address] [facility] BLOOD/URI 7 [facility] C ACID INC INC ANTINUCLE 29060 [facility] AR 7 [facility] ANTIBODIE INC INC S ANITA RHEUMATOI 22261 [facility] D FACTOR 7 [facility] QUANTITAT INC INC JOAN LIPID 12154 [facility] PANEL 7 [facility] INC INC COMPREHEN 55841 [facility] SIVE 7 [facility] METABOLIC INC INC PANEL DRUG TEST 62313 [facility] PRSMV 7 [facility] QUAL DIR INC INC OPTICAL OBS PER DAY URNLS DIP 93023 [facility] BLSA 7 [facility] STICK/TAB INC INC LET REAGENT AUTO MICROSCOP Y RADIOLOGI 79806 [facility] C EXAM 7 MEDICAL CHEST 2 IMAGING VIEWS ASS FRONTAL&L ATERAL IAADIADOO 23773 [facility] 7 [facility] STREPTOCO INC INC CCUS GROUP A IAADIADOO 98158 [facility] 7 [facility] INFLUENZA INC INC Encounters Encounter Start End Date Code Location Performer Type Date [facility] WAN Guzman 7 [facility] OUTPATIEN [facility] T EMERGENCY 05629 [facility] Guzman 7 PHYSICIAN ZOFIA Penaloza [facility] T VISIT HIGH/URGE NT SEVERITY EMERGENCY 16185 WAN 7 7 [facility] T VISIT [facility]OW/MODER SEVERITY HOSPITAL WAN Guzman 7 [facility] OUTPATIEN [facility] WAN - Megan 7 [facility] OUTPATI[facility] WAN Guzman 7 [facility] OUTPATIEN [facility] T EMERGENCY 83638 M[facility] Guzman 7 PHYSICIAN ZOFIA Penaloza [facility] T VISIT HIGH/URGE NT SEVERITY HOSPITAL WAN - Megan 7 [facility] OUTPATIEN [facility] T EMERGENCY 31881 [facility] 7 [facility] T VISIT LOW/MODER SEVERITY HOSPITAL WAN - Megan 7 [facility] OUTPATIEN [facility] T EMERGENCY 95979 WAN GALINDO 7 7 [facility] VISIT INC HIGH SEVERITY& THREAT [facility] W[facility] - Megan 7 [facility] OUTPATIEN [facility] T EMERGENCY 39522 Megan YANG 7 PHYSICIAN CURTIS STEWARD T VISIT HIGH/URGE NT SEVERITY EMERGENCY 94806 W[facility] 7 7 [facility] DEPARTMEN INC T VISIT LOW/MODER SEVERITY HOSPITAL WAN - 7 7 [facility] OUTPATIEN INC T HOSPITAL WAN - 7 7 [facility] OUTPATIEN INC T EMERGENCY 41458 [facility] FERREIAR DEPT 7 7 PHYSICIAN VISIT S, PLLC HIGH SEVERITY& THREAT [facility] 62146 WAN 7 7 [facility] DEPARTMEN INC T VISIT LOW/MODER SEVERITY HOSPITAL WAN - 7 7 [facility] OUTPATIEN INC [facility]OSPITAL WAN - 7 7 [facility] OUTPATIEN INC HOSPITAL WAN - 7 7 [facility] OUTPATIEN INC OFFICE 36789 [facility] 7 7 PHYSICIAN T VISIT S GROUP 25 MINUTES HOSPITAL WNA - 7 7 [facility] OUTPATIEN [facility] WAN - 7 7 [facility] OUTPATIEN [facility]ERGENCY 43967 MARRY TEMPLE 7 7 PHYSICIAN U DEPARTMEN S, [facility] T VISIT HIGH/URGE NT SEVERITY HOSPITAL WAN - 7 7 [facility] OUTPATIEN [facility] EMERGENCY 97902 WAN 7 7 MEM [facility] DEPARTMEN [facility] T VISIT LOW/MODER SEVERITY HOSPITAL WAN - 7 7 [facility] OUTPATIEN [facility] WAN - 7 7 [facility] OUTPATIEN INC T EMERGENCY 11198 WAN 7 7 [facility] DEPARTMEN INC T VISIT LOW/MODER SEVERITY EMERGENCY 92951 WAN 7 7 [facility] DEPARTMEN [facility] T VISIT LOW/MODER SEVERITY HOSPITAL WAN - 7 7 [facility] OUTPATIEN INC T EMERGENCY 31575 CHITO CASEY 7 7 EMERGENCY N [facility] T VISIT PHYSICIAN MODERATE S SEVERITY OFFICE 69979 WAN NAVAS 7 7 [facility] WAN - 7 7 [facility]
--- OUTSIDE RECORDS SUMMARY | 2017-07-26 15:46 | External Medical Summary Rpt | CCD ---
Author Author , MARCELLA NARANJO Address Unknown Phone [email or web address] Care Team Providers Care Line Assembler Name Role Phone PANG, PANG Unavailable Unavailable [facility] Unavailable Unavailable PHYSICIANS, [facility] DEREK REED Unavailable Unavailable JR FITZPATRICK FULLER, Unavailable Unavailable JR MIKI LIVINGSTON Unavailable Unavailable [facility] Un[facility] Unavailable INC, [facility] DOWD, DOWD Unavailable Unavailable [facility], DOWD Unavailable Unavailable [facility], Unavailable Unavailable [facility] Unavailable Unavailable IM[facility]ING [facility], [facility], Unavailable Unavailable PLL[facility], [facility] RENUSCH, RENUSCH Unavailable Unavailable [facility], Unavailable Unavailable [facility] SOTINGEANU, Unavailable Unavailable SOTINGEANU Purpose Continuity of Care Document - 11-22-2016 through 2016 Problems Code Diagnosis DOS Provider Status [id number] OTHER LONG 05-18-2017 [facility] CURRENT INC DRUG THERAPY G8929 OTHER 05-11-2017 [facility] CHRONIC [facility] PAIN PLLC I10 ESSENTIAL 05-11-2017 [facility] HYPERTENSIO INC N M545 LOW BACK 05-11-2017 [facility] PAIN [facility], PLLC Z720 TOBACCO USE 05-11-2017 [facility] INC G07977 PAIN IN 04-06-2017 [place] [facility] 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 04-06-2017 [place] EAL MEDICAL DISORDERS [facility] ASS NEC [id number] CONTUSION 04-06-2017 [facility] LOWER BACK PHYSICIANS, & PELVIS PLLC INITIAL ENCOUNTER [id number] STRAIN 04-06-2017 [facility] MUSCLE [facility], FASCIA & PLLC TENDON LOW BACK INITIAL N23 UNSPECIFIED 03-25-2017 [facility] RENAL [facility], COLIC PLLC R1012 LEFT UPPER 03-25-2017 [facility] PAIN INC R109 UNSPECIFIED 03-25-2017 [facility] ABDOMINAL PHYSICIANS, PAIN PLLC A00137 PAIN IN 03-16-2017 [place] LEFT MEDICAL SHOULDER IM[facility] I85644 PAIN IN 03-16-2017 [place] LEFT HIP [facility] J20069 PAIN IN 03-16-2017 [place] LEFT ANKLE [facility]ICAL [facility] [id number] CONTUSION 03-16-2017 [facility] OF LEFT HIP PHYSICIANS, INITIAL PLLC ENCOUNTER [id number] CONTUSION 03-16-2017 [facility] OF LEFT PHYSICIANS, LOWER LEG PLLC INITIAL ENCOUNTER B7065QH CONTUSION 03-16-2017 [facility] [...] 02-02-2017 [facility] IA BILATERAL M5416 RADICULOPAT 01-17-2017 [facility] HY LUMBAR PHYSICIANS REGION GROUP R768 OTH SPEC 01-17-2017 [facility] ABNORMAL PHYSICIANS IMMUNOLOGIC GROUP AL FIND IN SERUM K219 GASTRO-ESOP 01-14-2017 [facility] H REFLUX PHYSICIANS, DISEASE PLLC WITHOUT ESOPHAGITIS R4702 DYSPHASIA 01-14-2017 [facility] [id number] UNS FB 01-14-2017 [facility] PHARYNX PHYSICIANS, CAUSING OTH PLLC INJURY INIT ENC Z0000 ENCOUNTER 01-09-2017 [facility] MED EXAM INC W/O ABNORMAL FIND M5116 INTERVERTEB 01-07-2017 [facility] D/O INC W/RADICULOP ATHY LUMB RGN J209 ACUTE 12-28-2016 [facility] UNSPECIFIED INC R0602 SHORTNESS 12-28-2016 [facility] [id number] SPRAIN 12-10-2016 [facility] CERVICAL PHYSICIANS [...] 1 05 PH CE AR TA [facility] CT CY NO PH #3 EN 93 8 [...] 5 00 PH CE AR TA MA CT CY NO PH OF EN CY NT [...] 47 CE [address] MA NO CY PH EN OF CY [...] 5 80 PH CE AR TA MA CT CY NO PH OF CY 7. NT [...] 5 05 PH CE AR TA MA CT CY NO PH OF CY 7. NT [...] 5 65 PH CE AR TA MA CT CY NO PH OF CY 7. NT [...] 1 89 PH CE AR TA MA CT CY NO PH #3 93 7. 8 [...] PO 62 04 05 51 30 00 ND Ac LY 17 -1 -0 0. 00 L- ti ET 50 2- 5- 00 07 MA ve HY 44 20 20 0 48 RT LE 21 17 17 20 NE 5 03 PH AR GL MA YC CY OL #5 33 91 50 PO WD HY 00 04 04 [address] 40 -0 -2 .0 00 L- ti OC 60 4- 8- 00 02 MA ve OD 12 20 20 23 RT ON 30 17 17 98 -A 1 04 PH CE AR TA MA CT CY NO PH #5 EN 91 5- 32 5 GA 53 04 04 90 30 00 ND Ac BA 74 -0 -2 .0 00 L- ti PE 60 4- 8- 00 07 MA ve NT 10 20 20 48 RT IN 10 17 17 04 5 51 PH 10 AR 0 MA MG CY CA #5 PS 91 UL E SD 00 04 04 10 5 00 ND Ac ED 14 -0 -2 .0 00 L- ti NI 39 4- 8- 00 07 MA ve SO 73 20 20 48 RT NE 80 17 17 00 5 75 PH 20 AR MA MG CY TA #5 BL 91 ET AM 00 03 04 20 10 00 ND Ac OX 78 -2 -2 .0 00 L- ti -C 11 3- 1- 00 07 MA ve LA 85 20 20 47 RT V 22 17 17 82 87 0 43 PH 5- AR 12 MA 5 CY MG #5 TA 91 BL ET BE 68 03 04 30 10 00 ND Ac NZ 38 -2 -2 .0 00 [...] DOS Code Location Performer Comment DRUG TEST 22943 [facility] QUAL DIR INC INC OPTICAL OBS PER DAY THERAPEUT 24031 [facility] IC [facility] PROPHYLAC INC INC TIC/DX INJECTION SUBQ/IM DRUG TEST 99834 [facility] QUAL DIR INC INC OPTICAL OBS PER DAY DRUG TEST 84411 [facility] QUAL DIR INC INC OPTICAL OBS PER DAY RADEX 37474 [place] [facility] SPINE 7 MEDICAL LUMBOSACR IMAGING AL ASS MINIMUM 4 VIEWS RADEX 01437 [place] APNG SACRUM & 7 MEDICAL COCCYX IMAGING MINIMUM 2 ASS VIEWS RADIOLOGI 87162 [place] P[facility] C 7 MEDICAL EXAMINATI IMAGING ON PELVIS ASS 1/2 VIEWS DRUG TEST 10958 [facility] QUAL DIR INC INC OPTICAL OBS PER DAY COMPREHEN 57471 [facility] SIVE [facility] [place] [address] [facility] INFUSION [facility] THERAPY/P INC INC ROPHYLAXI S /DX 1ST TO 1 HR THERAPEUT 15909 [facility] IC [facility] INJECTION INC INC IV PUSH EACH NEW DRUG [facility]AL G9551 [facility] ABD 7 MEDICAL IMAG STS IMAGING W/O ASS INCIDNT FND LES NTD: THER 52465 [facility] PROPH/DX [facility] NJX EA INC INC SEQL IV PUSH SBST/[place] [address] [facility] ABDOMEN & [facility] PELVIS INC INC W/O CONTRAST MATERIAL FINAL G9638 [facility] REED REPORTS 7 MEDICAL W/O DOC IMAGING 1/MORE ASS DOSE REDUCTION TECH URNLS DIP 21361 [facility] STICK/TAB INC INC LET RGNT AUTO W/O MICROSCOP Y BLOOD 24464 [facility] COUNT [facility] COMPLETE INC INC AUTO&AUTO DIFRNTL WBC RADEX 41582 [facility] HIPS [facility] BILATERAL INC INC WITH PELVIS 2 VIEWS RADEX 14190 [facility] PANG ANKLE 7 MEDICAL COMPLETE IMAGING MINIMUM 3 ASS VIEWS RADEX 11303 [facility] HIPS 7 MEDICAL BILATERAL IMAGING WITH ASS PELVIS 3-4 VIEWS RADEX 25692 K[facility]SIE PANG SACRUM & 7 MEDICAL COCCYX IMAGING MINIMUM 2 ASS VIEWS DRUG TEST 41891 [facility] QUAL DIR INC INC OPTICAL OBS PER DAY DRUG TEST G0481 [facility] DEFINITV [address] ID INC INC METH P DAY 8-14 DRUG CL BASIC 45832 [facility] METABOLIC [facility] PANEL INC INC CALCIUM TOTAL CT SOFT 16476 [facility] TISSUE [facility] NECK INC INC W/CONTRAS T MATERIAL FINAL G9638 K[facility]SIE PANG REPORTS 7 MEDICAL W/O DOC IMAGING 1/MORE ASS DOSE REDUCTION TECH FINAL RPT G[address]/MRI 7 MEDICAL CHEST/NCK IMAGING /U/S NO ASS THR NOD<1.0 CM BLOOD 12718 [facility] COUNT [facility] COMPLETE INC INC AUTO&AUTO DIFRNTL WBC DRUG 22978 [facility] SCREENING 7 [facility] OPIOIDS INC INC & OPIATE ANALOGS 5/MORE DRUG TEST 03952 [facility] QUAL DIR INC INC OPTICAL OBS PER DAY THERAPEUT 44545 [facility]AN [facility] IC PX 1/> 7 [facility] AREAS INC INC EACH 15 MIN EXERCISES THERAPEUT 77355 [facility] IC PX 1/> 7 [facility] AREAS INC INC EACH 15 MIN EXERCISES OPHTH 82546 [facility] 7 XM&EVAL COMPRE NEW PT 1/> VST THERAPEUT 76762 [facility] IC PX 1/> 7 [facility] AREAS INC INC EACH 15 MIN EXERCISES DRUG TEST 17211 [facility] PRSMV [facility] QUAL DIR INC INC OPTICAL OBS PER DAY DRUG 82936 [facility] SCREENING 7 [facility] OPIOIDS INC INC & OPIATE ANALOGS 5/MORE PHYSICAL 97055 [facility] THERAPY 7 [facility] EVALUATIO INC INC N MOD COMPLEX 30 MINS RADIOLOGI 60559 [facility] C 7 [facility] EXAMINATI INC INC ON NECK SOFT TISSUE CUL BACT 62634 [facility] XCPT 7 [facility] URINE INC INC BLOOD/[place] [address] [facility] STREPTOCO 7 [facility] [address] [facility] FREE [facility] [place] [address] [facility] THYROID [facility] STIMULATI INC INC NG HORMONE TSH SEDIMENTA 78123 [facility] TIJOSHUA RATE 7 [facility] RBC INC INC NON-AUTOM ATED C-REACTIV 87187 [facility] E PROTEIN 7 [facility] INC INC HEMOGLOBI 88041 [facility] N 7 [facility] GLYCOSYLA INC INC MONSERRAT A1C BLOOD 76115 [facility] COUNT 7 [facility] COMPLETE INC INC AUTO&[place] [address] [facility] BLOOD/URI 7 [facility] C ACID INC INC ANTINUCLE 07586 [facility] AR 7 [facility] ANTIBODIE INC INC S ANITA RHEUMATOI 56672 [facility] D FACTOR 7 [facility] QUANTITAT INC INC JOAN LIPID 95881 [facility] PANEL 7 [facility] INC INC COMPREHEN 61315 [facility] SIVE 7 [facility] METABOLIC INC INC PANEL DRUG TEST 92801 [facility] PRSMV 7 [facility] QUAL DIR INC INC OPTICAL OBS PER DAY URNLS DIP 55794 [facility] 7 [facility] STICK/TAB INC INC LET REAGENT AUTO MICROSCOP Y RADIOLOGI 87514 [place] [facility] C EXAM 7 MEDICAL CHEST 2 IMAGING VIEWS ASS FRONTAL&L ATERAL IAADIADOO 85108 [facility] 7 [facility] STREPTOCO INC INC CCUS GROUP A IAADIADOO 34997 [facility] 7 [facility] INFLUENZA INC INC Encounters Encounter Start End Date Code Location Performer Type Date [facility] WAN Guzman 7 [facility] OUTPATIEN [facility] T EMERGENCY 83894 MARRY Guzman [address] [facility] T VISIT HIGH/URGE NT SEVERITY EMERGENCY 38133 WAN 7 7 [facility] T VISIT LOW/MODER SEVERITY HOSPITAL WAN Guzman 7 [facility] OUTPATIEN [facility] WAN - Megan 7 [facility] OUTPATIEN [facility] WAN Guzman 7 [facility] OUTPATIEN [facility] T EMERGENCY 53212 MARRY Guzman [address] [facility] T VISIT HIGH/URGE NT SEVERITY HOSPITAL WAN - Megan 7 [facility] OUTPATIEN [facility] T EMERGENCY 41569 [facility] 7 [facility] T VISIT [facility]OW/MODER SEVERITY HOSPITAL WAN - Megan 7 [facility] OUTPATIEN [facility] T EMERGENCY 69418 WAN GALINDO 7 7 [facility] VISIT INC HIGH SE[facility]& [facility] Megan 7 [facility] OUTPATIEN [facility] T EMERGENCY 92203 Megan YANG 7 PHYSICIAN CURTIS STEWARD T VISIT HIGH/URGE NT SEVERITY EMERGENCY 41396 W[facility] 7 7 [facility] DEPARTMEN INC T VISIT LOW/MODER SEVERITY HOSPITAL WAN - 7 7 [facility] OUTPATIEN INC T HOSPITAL WAN - 7 7 [facility] OUTPATIEN INC T EMERGENCY 37801 MARRY FERREIRA DEPT 7 7 PHYSICIAN VISIT S, PLLC HIGH SEVERITY& THREAT [facility] EMERGENCY 42863 WAN 7 7 [facility] DEPARTMEN INC T VISIT LOW/MODER SEVERITY HOSPITAL WAN - 7 7 [facility] OUTPATIEN INC HOSPITAL WAN - 7 7 [facility] OUTPATIEN INC HOSPITAL WAN - 7 7 [facility] OUTPATIEN INC OFFICE 73241 [facility] 7 7 PHYSICIAN T VISIT S GROUP 25 MINUTES HOSPITAL WAN - 7 7 [facility] OUTPATIEN [facility] WAN - 7 7 [facility] OUTPATIEN [facility] EMERGENCY 60395 MARRY TEMPLE 7 7 PHYSICIAN U DEPARTMEN S, [facility] T VISIT HIGH/URGE NT SEVERITY HOSPITAL WAN - 7 7 [facility] OUTPATIEN [facility] EMERGENCY 42231 WAN 7 7 [facility] DEPARTMEN [facility] T VISIT LOW/MODER SEVERITY HOSPITAL WAN - 7 7 [facility] OUTPATIEN [facility] H[facility]PITAL WAN - 7 7 [facility] OUTPATIEN INC T EMERGENCY 61579 WAN 7 7 [facility] DEPARTMEN INC T VISIT LOW/MODER SEVERITY EMERGENCY 41741 WAN 7 7 [facility] DEPARTMEN [facility] T VISIT LOW/MODER SEVERITY HOSPITAL WAN - 7 7 [facility] OUTPATIEN INC T EMERGENCY 27347 CHITO CASEY 7 7 EMERGENCY N [facility] T VISIT PHYSICIAN MODERATE S SEVERITY OFFICE 35298 WAN NAVAS 7 7 [facility] [address] [facility] WAN - 7 7 [facility]
--- OUTSIDE RECORDS SUMMARY | 2017-07-26 15:47 | External Medical Summary Rpt | CCD ---
Demographics Preferred Language Mauritanian Marital Status Unknown Druze Affiliation Unknown Race Unknown Ethnic Group Unknown Author Author , MARCELLA NARANJO Address Unknown Phone Immunization No patient found.
--- OUTSIDE RECORDS SUMMARY | 2017-07-26 15:47 | External Medical Summary Rpt | CCD ---
Demographics Preferred Language Cuban Marital Status Unknown Yarsanism Affiliation Unknown Race Unknown Ethnic Group Unknown Author Author , MARCELLA NARANJO Address Unknown Phone Immunization No patient found.
--- OUTSIDE RECORDS SUMMARY | 2017-07-26 15:48 | External Medical Summary Rpt ---
Author Author MARCELLA Abiola, [facility] [employer] Organization [employer] Address Unknown Phone Unavailable Results Comprehensive metabolic 2000 panel in Serum or Plasma Observa Value Referen Units Interpr Notes Date tion ce etation Range Albumin/G 1.1 - 1.8 No Low No Jul 14 lobulin informati informati 2017 7:45 [Mass on in on in PM ratio] in source source Serum or data data Plasma Albumin 3.4 - 5.0 gm/dL Normal No Jul 21 [Mass/vol informati 2016 7:45 ume] in on in PM Serum or source Plasma data Alkaline 46 - 116 U/L Normal No Jul 21 phosphata informati 2016 7:45 se on in PM [Enzymati source c data activity/ volume] in Serum or Plasma Bilirubin 0.2 - 1.0 mg/dL Normal No Jul 14 .total informati 2016 7:45 [Mass/vol on in PM ume] in source Serum or data Plasma Urea 7 - 18 mg/dL Normal No Jul 21 nitrogen informati 2016 7:45 [Mass/vol on in PM ume] in source Serum or data Plasma Calcium 8.5 - mg/dL Normal No Jul 21 [Mass/vol 10.1 informati 2017 7:45 ume] in on in PM Serum or source Plasma data Chloride 98 - 107 mmoL/L Normal No Jul 21 [Moles/vo informati 2017 7:45 lume] in on in PM Serum or source Plasma data Carbon 21.0 - mmoL/L Normal No Jul 21 dioxide, 32.0 informati 2017 7:45 total on in PM [Moles/vo source lume] in data Serum or Plasma Creatinin 0.70 - mg/dL Normal No Jul 14 e 1.30 informati 2017 7:45 [Mass/vol on in PM ume] in source Serum or data Plasma Creatinin 50 - 200 ML/MIN High No Jul 14 e renal informati 2017 7:45 clearance on in PM source predicted data by Cockcroft -Gault formula Estimated >60 ML/MIN No REFERENCE Oct 14 informati RANGE: 2017 7:45 glomerula on in >60 PM r source ML/MIN/1. filtratio data 73 SQUARE n rate METERSIf (GF this patient is -A merican, then multiply theresult by 1.210. Globulin 1.3 - 3.2 gm/dL High No Jul 21 [Mass/vol informati 2016 7:45 ume] in on in PM Serum source data Glucose 74 - 106 mg/dL Normal No Jul 21 [Mass/vol informati 2016 7:45 ume] in on in PM Serum or source Plasma data Potassium 3.5 - 5.1 mmoL/L Normal No Jul 212016 7:45 [Moles/vo on in PM lume] in source Serum or data Plasma Sodium 136 - 145 mmoL/L Normal No Jul 21 [Moles/vo 2016 7:45 lume] in on in PM Serum or source Plasma data Aspartate 15 - 37 U/L Normal No Jul 212016 7:45 aminotran on in PM sferase source [Enzymati data c activity/ volume] in Serum or Plasma Alanine 12 - 78 U/L Normal No Jul 21 aminotran 2016 7:45 sferase on in PM [Enzymati source c data activity/ volume] in Serum or Plasma Protein 6.4 - 8.2 gm/dL Normal No Jul 21 [Mass/vol informati 2016 7:45 ume] in on in PM Serum or source Plasma data CBC W Auto Differential panel in Blood Observa Value Referen Units Interpr Notes Date tion ce etation Range Basophils 0 - 0.2 K/MM3 Normal No Jul 212016 7:45 [#/volume on in PM ] in source Blood by data Automated count Basophils 0.1 - 2.0 % Normal No Jul 21 / informati 2016 7:45 leukocyte on in PM s in source Blood by data Automated count Eosinophi 0.0 - 0.4 K/mm3 Normal No Jul 21 ls informati 2016 7:45 [#/volume on in PM ] in source Blood by data Automated count Eosinophi 0.1 - % Normal No Jul 21 ls/100 12.0 informati 2016 7:45 leukocyte on in PM s in source Blood by data Automated count Granulocy 1.3 - 8.0 K/mm3 Normal No Jul 21 jose ramon ati 2016 7:45 [#/volume on in PM ] in source Blood by data Automated count Granulocy 37.0 - % Normal No Jul 21 jose ramon/100 80.0 informati 2016 7:45 leukocyte on in PM s in source Blood by data Automated count Hematocri 42.0 - % Normal No Jul 21 t [Volume 52.0 informati 2016 7:45 on in PM Fraction] source of Blood data Hemoglobi 14.1 - g/dL Normal No Jul 21 n 18.0 informati 2016 7:45 [Mass/vol on in PM ume] in source Blood data Lymphocyt 0.7 - 4.5 K/mm3 Normal No Jul 21 es informati 2016 7:45 [#/volume on in PM ] in source Unspecifi data ed specimen by Automated count Lymphocyt 10 - 50 % Normal No Jul 21 es informati 2016 7:45 [#/volume on in PM ] in source Unspecifi data ed specimen by Automated count Erythrocy 27 - 31.2 pg Normal No Jul 21 te mean informati 2016 7:45 corpuscul on in PM ar source hemoglobi data n [Entitic mass] Erythrocy 31.8 - g/dl Normal No Jul 21 te mean 35.4 informati 2016 7:45 corpuscul on in PM ar source hemoglobi data n concentra tion [Mass/vol ume] by Automated count Erythrocy 82.2 - fl Normal No Jul 21 te mean 97.8 informati 2016 7:45 corpuscul on in PM ar volume source [Entitic data volume] by Automated count Monocytes 0.1 - 1.0 K/mm3 Normal No Jul 21 informati 2016 7:45 [#/volume on in PM ] in source Blood by data Automated count Monocytes 1.7 - 9.3 % Normal No Jul 21 / informati 2016 7:45 leukocyte on in PM s in source Blood by data Automated count Platelet 7.4 - fl Normal No Jul 21 mean 10.4 informati 2016 7:45 volume on in PM [Entitic source volume] data in Blood by Automated count Platelets 142 - 424 K/mm3 Normal No Jul 21 informati 2016 7:45 [#/volume on in PM ] in source Blood data Erythrocy 4.6 - 6.2 M/mm3 Normal No Jul 21 jose ramon informati 2016 7:45 [#/volume on in PM ] in source Amniotic data fluid Erythrocy 11.5 - % Normal No Jul 21 te 17.5 informati 2016 7:45 distribut on in PM ion width source [Entitic data volume] by Automated count Leukocyte 4.8 - K/MM3 Normal No Jul 21 s 10.8 informati 2016 7:45 [#/volume on in PM ] in source Blood data Drugs identified in Urine by Screen method Observa Value Referen Units Interpr Notes Date tion ce etation Range Positive urine drug screen samples are stored for 7 days. Contact the Lab if confirmation of positives is needed. Ampheta NEGATIV <1000 ng/mL No No Jul 21 mine E informa informa 2016 [Presen tion in tion in 7:10 PM ce] in source source Urine data data by Screen method Barbitura <200 ng/mL No No Jul 21 jose ramon informati informati 2016 7:10 [Mass/vol on in on in PM ume] in source source Urine by data data Screen method Benzodiaz 200 ng/mL ng/mL No No Jul 21 epines informati informati 2016 7:10 [Mass/vol on in on in PM ume] in source source Serum or data data Plasma by Screen method Cocaine <300 ng/g No No Jul 21 [Mass/vol informati informati 2016 7:10 ume] in on in on in PM Unspecifi source source ed data data specimen Methadone <300 ng/mL No No Jul 21 informati informati 2016 7:10 [Mass/vol on in on in PM ume] in source source Unspecifi data data ed specimen Opiates <300 ng/mL High This is Jul 21 [Mass/vol an 2016 7:10 ume] in UNCONFIRM PM Unspecifi ED ed result. specimen This result is for medicalpu rposes and/or treatment only. Phencycli <25 ng/mL No No Jul 21 dine informati informati 2016 7:10 [Mass/vol on in on in PM ume] in source source Unspecifi data data ed specimen 11-Hydr NEGATIV <50 ng/mL No No Jul 21 oxy E informa informa 2017 delta-9 tion in tion in 7:10 PM source source tetrahy data data drocann [...] 37 U/L Normal No Sep 16 informati 2017 7:30 aminotran on in PM sferase source [...] % Normal No Sep 16 es informati 2017 7:30 [#/volume on in PM ] in source Unspecifi data ed specimen by Automated count Erythrocy 27 - 31.2 pg Normal No Sep 16 te mean informati 2017 7:30 corpuscul on in PM ar source [...] GC/MS CONF 364 ng/mL CUTOFF=20 0Performi ng site[facility] [id number] [place] [address]Dir: Guevara Pacheco MDFor inquiries , the physician may contactBr anch: [phone] Lab: Drugs identified in Urine by Screen method Observa Value Referen Units Interpr Notes Date tion ce etation Range Positive urine drug screen samples are stored for 7 days. Contact the Lab if confirmation of positives is needed. Ampheta NEGATIV <1000 ng/mL No No May 18 mine E informa informa 2016 [Presen tion in tion in 9:35 AM ce] in source source Urine data data by Screen method Barbitura <200 ng/mL High This is May 18 jose ramon an 2017 9:35 [Mass/vol UNCONFIRM AM ume] in ED Urine by result. Screen This method result is for medicalpu rposes and/or treatment only. Benzodiaz 200 ng/mL ng/mL No No May 18 epines informati informati 2016 9:35 [Mass/vol on in on in AM ume] in source source Serum or data data Plasma by Screen method Cocaine <300 ng/g No No May 18 [Mass/vol informati informati 2016 9:35 ume] in on in on in AM Unspecifi source source ed data data specimen Methadone <300 ng/mL No No May 18 informati informati 2016 9:35 [Mass/vol on in on in AM ume] in source source Unspecifi data data ed specimen Opiates <300 ng/mL No No May 18 [Mass/vol informati informati 2016 9:35 ume] in on in on in AM Unspecifi source source ed data data specimen Phencycli <25 ng/mL No No May 18 dine informati informati 2016 9:35 [Mass/vol on in on in AM [...] source source PM Urine data data data ileana t by Light microsc opy Bilirub NEGATIV NEG No No No May 15 in E informa informa informa 2017 [Presen tion in tion in tion in 10:45 ce] in source source source PM Urine data data data by Test strip Erythro NEGATIV NEG No No No May 15 cytes E informa informa informa 2017 [Presen tion in tion in tion in 10:45 ce] in source source source PM Urine data data data Color YELLOW YELLOW No No No May 15 of informa informa informa 2017 Urine tion in tion in tion in 10:45 source source source PM data data data Glucose NEG No No No May 8 [Mass/vol informati informati informati 2017 ume] in on in on in on in 10:45 PM Urine by source source source Test data data data strip Ketones NEGATIV NEG mg/dL No No May 15 E informa informa 2017 [Presen tion in tion in 10:45 ce] in source source PM Urine data data by Automat ed test strip Mucus NEGATIV NEG No No No May 15 [Presen E informa informa informa 2017 ce] in tion in tion in tion [...] 5.0 - 8.5 No Normal No May 8 Urine informati informati 2017 on in on in 10:45 PM source source data data Protein NEG mg/dL No No May 8 [Mass/vol informati informati 2017 ume] in on in on in 10:45 PM Urine by source source Automated data data test strip Erythro OCC 0 rbc/hpf No No May 8 cytes informa informa 2017 [Presen tion in tion [...] only. Phencycli <25 ng/mL No No May 15 dine informati informati 2016 [Mass/vol on in on in 10:45 PM ume] in source source Unspecifi data data ed specimen 11-Hydr NEGATIV <50 ng/mL No No May 15 oxy E informa informa 2017 delta-9 tion in tion in 10:45 source source PM tetrahy data data drocann abinol [Presen ce] in Unspeci fied specime n Urinalysis dipstick W Reflex Microscopic panel in Urine Observa Value Referen Units Interpr Notes Date tion ce etation Range Appeara CLEAR CLEAR No No No May 8 nce of informa informa informa 2017 Urine [...] informa informa informa 2016 Urine tion in tion in tion in [...] data Protein NEG mg/dL No No May 8 [Mass/vol informati informati 2017 ume] in on [...] Plasma data CONSIDERE D LEGALLYIN TOXICATED UNDER [place] [employer]. Comprehensive metabolic 2000 panel in Serum [...] U/L Normal No May 15 phosphata informati 2016 se on in 10:40 PM [Enzymati source [...] Normal No May 15 [Mass/vol 10.1 informati 2016 ume] in on in 10:40 PM Serum or source Plasma data Chloride 98 - 107 mmoL/L Normal No May 15 [Moles/vo informati 2016 lume] in on in 10:40 PM Serum or source Plasma data Carbon 21.0 - mmoL/L Normal No May 15 dioxide, 32.0 informati 2017 total on in 10:40 PM [Moles/vo source lume] in data Serum or Plasma Creatinin 0.70 - mg/dL Normal No May 15 e 1.30 informati 2017 [Mass/vol on in 10:40 PM ume] in source Serum or data Plasma Creatinin 50 - 200 ML/MIN Normal No May 15 e renal 2016 clearance on in 10:40 PM source predicted [...] 78 U/L Normal No May 15 aminotran 2016 sferase on in 10:40 PM [Enzymati source [...] 0.1 - 2.0 % Normal No May 15 /100 2016 leukocyte on in 10:40 PM [...] K/mm3 Normal No May 15 jose ramon inform2016 [#/volume on in 10:40 PM ] in source Blood by data Automated count Granulocy 37.0 - % Normal No May 15 jose ramon/100 80.0 inform2016 leukocyte on in 10:40 PM s in source Blood by data Automated count Hematocri 42.0 - % Normal No May 15 t [Volume 52.0 ati 2016 on in 10:40 PM Fraction] source of Blood data Hemoglobi 14.1 - g/dL Normal No May 15 n 18.0 inform2016 [Mass/vol on in 10:40 PM ume] in [...] 0.1 - 1.0 K/mm3 Normal No May 152016 [#/volume on in 10:40 PM ] in source Blood by data Automated count Monocytes 1.7 - 9.3 % Normal No May 15 /100 inform 2017 leukocyte on in 10:40 PM s in source Blood by data Automated count Platelet 7.4 - fl Normal No May 15 mean 10.4 informati 2016 volume on in 10:40 PM [Entitic source volume] data in Blood by Automated count Platelets 142 - 424 K/mm3 Normal No Aug 8 inform2016 [#/volume on in 10:40 PM ] in source Blood data Erythrocy 4.6 - 6.2 M/mm3 Normal No May 15 jose ramon informati 2016 [#/volume on in 10:40 PM ] in source Amniotic data fluid Erythrocy 11.5 - % Normal No May 15 te 17.5 informati 2016 distribut on in 10:40 PM ion width source [Entitic data volume] by Automated count Leukocyte 4.8 - K/MM3 Normal No May 15 s 10.8 informati 2016 [#/volume on in 10:40 PM [...] 1.1 - 1.8 No Low No May 10 lobulin informati informati 2016 8:45 [Mass on in on in PM ratio] in source source Serum or data data Plasma Albumin 3.4 - 5.0 gm/dL Normal May 10 [Mass/vol informati 2016 8:45 ume] in on in PM Serum or source Plasma data Alkaline 46 - 116 U/L Normal No May 10 phosphata informati 2016 8:45 se on in PM [Enzymati source c data activity/ volume] in Serum or Plasma Bilirubin 0.2 - 1.0 mg/dL Normal May 10 .total informati 2016 8:45 [Mass/vol on in PM ume] in source Serum or data Plasma Urea 7 - 18 mg/dL High No May 10 nitrogen informati 2016 8:45 [Mass/vol on in PM ume] in source Serum or data Plasma Calcium 8.5 - mg/dL Normal May 10 [Mass/vol 10.1 informati 2016 8:45 ume] in on in PM Serum or source Plasma data Chloride 98 - 107 mmoL/L Normal No May 10 [Moles/vo informati 2016 8:45 lume] in on in PM Serum or source Plasma data Carbon 21.0 - mmoL/L Normal May 10 dioxide, 32.0 informati 2016 8:45 [...] data Glucose 74 - 106 mg/dL Normal May 10 [Mass/vol informati 2016 8:45 ume] in on in PM Serum or source Plasma data Potassium 3.5 - 5.1 mmoL/L Normal No May 10ati 2016 8:45 [Moles/vo on in PM lume] in source Serum or data Plasma Sodium 136 - 145 mmoL/L Normal May 10 [Moles/vo informati 2016 8:45 lume] in on in PM Serum or source Plasma data Aspartate 15 - 37 U/L Normal No May 10ati 2016 8:45 aminotran on in PM sferase source [Enzymati data c activity/ volume] in Serum or Plasma Alanine 12 - 78 U/L Normal May 10 aminotran 2016 8:45 sferase on in PM [Enzymati [...] 393 U/L Normal No May 10 [Enzymati informati 2016 8:45 c on in PM activity/ source volume] data in Serum or Plasma CBC W Auto Differential panel in Blood Observa Value Referen Units Interpr Notes Date tion ce etation Range Basophils 0 - 0.2 K/MM3 Normal No May 102016 8:45 [#/volume on in PM ] in source Blood by data Automated count Basophils 0.1 - 2.0 % Normal No May 10 /100 inform2016 8:45 leukocyte on in PM s in source Blood by data Automated count Eosinophi 0.0 - 0.4 K/mm3 Normal No May 10 ls 2016 8:45 [#/volume on in PM ] in source Blood by data Automated count Eosinophi 0.1 - % Normal No May 10 ls/100 12.0 informati 2016 8:45 leukocyte on in PM s in source Blood by data Automated count Granulocy 1.3 - 8.0 K/mm3 Normal No May 10 jose ramon inform2016 8:45 [#/volume on in PM ] in source Blood by data Automated count Granulocy 37.0 - % Normal No May 10 jose ramon/100 80.0 inform2016 8:45 leukocyte on in PM s in source Blood by data Automated count Hematocri 42.0 - % Normal May 10 t [Volume 52.0 ati 2016 8:45 on in PM Fraction] source of Blood data Hemoglobi 14.1 - g/dL Normal May 10 n 18.0 2016 8:45 [Mass/vol on in PM ume] in source Blood data Lymphocyt 0.7 - 4.5 K/mm3 Normal No May 10 es 2016 8:45 [#/volume on in PM ] in source Unspecifi data ed specimen by Automated count Lymphocyt 10 - 50 % Normal May 10 es 2016 8:45 [#/volume on in PM ] in source Unspecifi data ed specimen by Automated count Erythrocy 27 - 31.2 pg High No May 10 te mean 2016 8:45 corpuscul on in PM ar source hemoglobi data n [Entitic mass] Erythrocy 31.8 - g/dl Normal May 10 te mean 35.4 2016 8:45 corpuscul on in PM ar source hemoglobi data n concentra tion [Mass/vol ume] by Automated count Erythrocy 82.2 - fl Normal May 10 te mean 97.8 2016 8:45 corpuscul on in PM ar volume source [Entitic data volume] by Automated count Monocytes 0.1 - 1.0 K/mm3 Normal No May 102016 8:45 [#/volume on in PM ] in source Blood by data Automated count Monocytes 1.7 - 9.3 % Normal No May 10 /100 informati 2016 8:45 leukocyte on in PM s in source Blood by data Automated count Platelet 7.4 - fl Normal No May 10 mean 10.4 ati 2016 8:45 volume on in PM [Entitic source volume] data in Blood by Automated count Platelets 142 - 424 K/mm3 Normal No May 10 informati 2016 [...] K/MM3 Normal No May 10 s 10.8 ati 2016 8:45 [#/volume on in PM [...] No No Apr 24 [Mass/vol informati informati 2017 9:45 ume] in on in on in AM Unspecifi source source ed data data specimen Methadone <300 ng/mL No No Apr 24 informati informati 2016 9:45 [Mass/vol on in [...] No Apr 11 mine E informa informa 2017 [Presen tion in tion in 2:15 PM [...] High This is Apr 11 [Mass/vol an 2017 2:15 ume] in UNCONFIRM PM Unspecifi ED [...] No Mar 27 jose ramon informati informati 2017 1:10 [Mass/vol on in on in PM ume] in source source Urine by data data Screen method Benzodiaz 200 ng/mL ng/mL No No Mar 27 epines informati informati 2017 1:10 [Mass/vol on in on in PM ume] in source source Serum or data data Plasma by Screen method Cocaine <300 ng/g No No Mar 27 [Mass/vol informati informati 2017 1:10 ume] in on in on in PM Unspecifi source source ed data data specimen Methadone <300 ng/mL No No Mar 27 informati informati 2017 1:10 [Mass/vol on in on in PM ume] in source source Unspecifi data data ed specimen Opiates <300 ng/mL High This is Mar 27 [Mass/vol an 2017 1:10 ume] in UNCONFIRM PM Unspecifi ED ed result. specimen This result is for medicalpu rposes and/or treatment only. Phencycli <25 ng/mL No No Mar 27 dine informati informati 2017 1:10 [Mass/vol on in on in PM ume] in source source Unspecifi data data ed specimen 11-Hydr NEGATIV <50 ng/mL No No Mar 27 oxy E informa informa 2017 delta-9 tion [...] gm/dL Normal No Mar 25 [Mass/vol informati 2017 8:41 ume] in on in [...] Normal No Mar 25 [Mass/vol 10.1 informati 2016 8:41 ume] in on in [...] 50 - 200 ML/MIN High No Mar 25 e renal informati 2017 8:41 clearance on in PM source predicted data by Cockcroft -Gault formula Estimated >60 ML/MIN No REFERENCE Mar 25 informati RANGE: 2017 8:41 glomerula on in >60 PM r [...] 78 U/L Normal No Mar 25 aminotran informati 2016 8:41 sferase on in PM [Enzymati source c data activity/ volume] in Serum or Plasma Protein 6.4 - 8.2 gm/dL Normal Mar 25 [Mass/vol informati 2016 8:41 ume] in on in PM Serum or source Plasma data CBC W Auto Differential panel in Blood Observa Value Referen Units Interpr Notes Date tion ce etation Range Basophils 0 - 0.2 K/MM3 Normal No Mar 25 informati 2016 8:41 [#/volume on in PM [...] K/mm3 Normal No Mar 25 jose ramon informati 2016 8:41 [#/volume on in PM ] in source Blood by data Automated count Granulocy 37.0 - % Normal No Mar 25 jose ramon/100 80.0 informati 2016 8:41 leukocyte on in PM s in source Blood by data Automated count Hematocri 42.0 - % Normal No Mar 25 t [Volume 52.0 informati 2016 8:41 on in PM Fraction] source of Blood data Hemoglobi 14.1 - g/dL Normal No Mar 25 n 18.0 informati 2016 8:41 [Mass/vol on in PM ume] in source Blood data Lymphocyt 0.7 - 4.5 K/mm3 Normal No Mar 18 es informati 2016 8:41 [#/volume on in PM ] in source Unspecifi data ed specimen by Automated count Lymphocyt 10 - 50 % Normal No Mar 25 es informati 2016 8:41 [#/volume on in PM ] in source Unspecifi data ed specimen by Automated count Erythrocy 27 - 31.2 pg Normal No Mar 18 te mean informati 2016 8:41 corpuscul on in PM ar source hemoglobi data n [Entitic mass] Erythrocy 31.8 - g/dl Normal No Mar 25 te mean 35.4 informati 2016 8:41 corpuscul on in PM ar source hemoglobi data n concentra tion [Mass/vol ume] by Automated count Erythrocy 82.2 - fl Normal No Mar 25 te mean 97.8 informati 2016 8:41 corpuscul on in PM ar volume source [Entitic data volume] by Automated count Monocytes 0.1 - 1.0 K/mm3 Normal No Mar 25 informati 2016 8:41 [#/volume on in PM ] in source Blood by data Automated count Monocytes 1.7 - 9.3 % Normal No Mar 18 /100 informati 2016 8:41 leukocyte on in PM s in source Blood by data Automated count Platelet 7.4 - fl Normal No Mar 25 mean 10.4 informati 2017 8:41 volume on in PM [Entitic source volume] data in Blood by Automated count Platelets 142 - 424 K/mm3 Normal No Mar 18 informati 2016 8:41 [#/volume on in PM ] in source Blood data Erythrocy 4.6 - 6.2 M/mm3 Normal No Mar 25 jose ramon informati 2016 8:41 [#/volume on in PM ] in source Amniotic data fluid Erythrocy 11.5 - % Normal No Mar 25 te 17.5 informati 2016 8:41 distribut on in PM ion width source [Entitic data volume] by Automated count Leukocyte 4.8 - K/MM3 Normal No Mar 18 s 10.8 informati 2016 8:41 [#/volume on in PM ] in source Blood data Opiates and Oxycodone(GC/MS),U Observa Value Referen Units Interpr Notes Date tion ce etation Range Oxycodo Negativ Cutoff= No No Test Wong 6 ne/Oxym e 100 informa informa include 2017 orph tion in tion in s 1:15 PM source source Oxycodo data data ne and Oxymorp honePer formed at: - [facility] [id number] [place], [place] [id number] Directo r: Guevara Pacheco MD, Phone: [phone] Opiates Negativ Cutoff= No No Opiate Wong [...] needed. Ampheta NEGATIV <1000 ng/mL No No Wong 6 mine E informa informa 2017 [Presen tion in tion in 1:15 PM ce] in source source Urine data data by Screen method Barbitura <200 ng/mL No No Wong 6 jose ramon informati informati 2017 1:15 [Mass/vol on in on in PM ume] in source source Urine by data data Screen method Benzodiaz 200 ng/mL ng/mL No No Wong 6 epines informati informati 2017 1:15 [Mass/vol on in on in PM ume] in source source Serum or data data Plasma by Screen method Cocaine <300 ng/g No No Wong 6 [Mass/vol informati informati 2017 1:15 ume] in on in on in PM Unspecifi source source ed data data specimen Methadone <300 ng/mL No No Wong 6 informati informati 2017 1:15 [Mass/vol on [...] mg/dL Normal No Wong 1 nitrogen informati 2016 5:55 [Mass/vol on in PM ume] in source Serum or data Plasma Calcium 8.5 - mg/dL Normal No Mar 08 [Mass/vol 10.1 informati 2016 5:55 ume] in on in PM Serum or source Plasma data Chloride 98 - 107 mmoL/L Normal No Wong 1 [Moles/vo informati 2016 5:55 lume] in on in PM Serum or source Plasma data Carbon 21.0 - mmoL/L Normal No Wong dioxide, 32.0 informati 2016 5:55 total on in PM [Moles/vo source lume] in data Serum or Plasma Creatinin 0.70 - mg/dL Normal No Wong 1 e 1.30 informati 2016 5:55 [Mass/vol on in PM ume] in source Serum or data Plasma Creatinin 50 - 200 ML/MIN Normal No Wong 1 e renal informati 2016 5:55 clearance on in PM source predicted data by Cockcroft -Gault formula Estimated >60 ML/MIN No REFERENCE Wong 1 informati RANGE: 2017 5:55 glomerula on in >60 PM r source ML/MIN/1. filtratio data 73 SQUARE n rate METERSIf (GF this patient is -A merican, then multiply theresult by 1.210. Glucose 74 - 106 mg/dL Normal No Wong 1 [Mass/vol informati 2016 5:55 ume] in on in PM Serum or source Plasma data Potassium 3.5 - 5.1 mmoL/L Normal No Wong 1 informati 2016 5:55 [Moles/vo on in PM lume] in [...] % Normal No Wong 1 /100 informati 2016 5:55 leukocyte on in PM s in source Blood by data Automated count Eosinophi 0.0 - 0.4 K/mm3 Normal No Wong 1 ls informati 2016 5:55 [#/volume on in PM [...] No Wong 1 jose ramon/100 80.0 informati 2016 5:55 leukocyte on in PM s in source Blood by data Automated count Hematocri 42.0 - % Normal No Mar 08 t [Volume 52.0 informati 2016 5:55 on in PM Fraction] source of Blood data Hemoglobi 14.1 - g/dL Normal No Mar 08 n 18.0 informati 2016 5:55 [Mass/vol on in PM ume] in source Blood data Lymphocyt 0.7 - 4.5 K/mm3 Normal No Wong 1 es informati 2017 5:55 [#/volume on in PM ] in source Unspecifi data ed specimen by Automated count Lymphocyt 10 - 50 % Normal No Mar 08 es informati 2017 5:55 [#/volume on in PM ] in source Unspecifi data ed specimen by Automated count Erythrocy 27 - 31.2 pg Normal No Mar 08 te mean informati 2016 5:55 corpuscul on [...] 1.7 - 9.3 % Normal No Mar 08 informati 2016 5:55 leukocyte on in PM [...] Interpr Notes Date ti ce etation Range Oxycodo Negativ Cutoff= No No Test February 12 ne/Oxym e 100 informa informa include 2017 orph tion in ti in s 1:10 PM source source Oxycodo data data ne and [employer] honePer formed at: [facility] [id number] [place], [place] [id number]Lab Directo r: Guevara Pacheco MD, Phone: [phone] Opiates Negativ Cutoff= No No Opiate February 12 e 100 informa informa test 2017 tion in tion in include 1:10 PM source source s data data Codeine , Morphin e, Hydromo rphone, Hydroco done. XR CHEST PA AND LATERAL Observa Value Referen Units Interpr Notes Date ti ce etation Range CLINICA No No No [...] Range Alcohol 10 <=10 mg/dL No No Feb 11 informa informa 2016 Medical tion in tion in 8:06 PM source source data data Auto Diff Observa Value Referen Units Interpr Notes Date tion ce etation Range Neutrop 67.2 No % No No Feb 11 hils informa informa informa 2015 [#/volu tion in tion in tion in 7:49 PM me] in source source source Blood data data data by Automat ed count Lymphoc 26.8 No % No No Feb 11 ytes informa informa informa 2016 [#/volu tion in tion in tion in 7:49 PM me] in source source source Blood data data data by Automat ed count Monocyt 4.8 No % No No Feb 11 es informa informa informa 2016 [#/volu tion in tion in tion in 7:49 PM me] in source source source Blood data data data by Automat ed count Eos 0.7 No % No No Feb 11 Percent informa informa informa 2016 tion in tion in tion in 7:49 PM source source source data data data Baso 0.5 No % No No Feb 11 Percent [...] in 7:49 PM source source data data [place]# 0.4 0.0 - x10(3)/ No No Feb [...] No No Feb 11 JOSE RAMON 11.0 mcL informa informa 2016 tion in tion in 7:49 PM source source data data Erythro 4.77 4.30 - x10(6)/ No No Feb 11 cytes 5.81 mcL informa informa 2016 [#/volu tion in tion in 7:49 PM me] in source source Blood data data by Automat ed count Hemoglo 14.4 13.5 - gm/dL No No Nov 18 bin 17.1 informa informa 2016 [Mass/v tion in tion in 7:49 PM olume] source source in data data Blood Hematoc 43.7 38.9 - % No No Feb 11 rit 51.6 informa informa 2016 [Volume tion in tion in 7:49 PM source source Fractio data data n] of Blood by Automat ed count Erythro 91.6 82.5 - fL No No b 11 cyte 99.8 informa informa 2016 mean tion in tion in 7:49 PM corpusc source source ular data data volume [Entiti c volume] by Automat ed count Erythro 30.3 27.0 - pg No No b 11 cyte 34.3 informa informa 2016 mean tion in tion in 7:49 PM corpusc source source ular data data hemoglo bin [Entiti c mass] by Automat ed count Erythro 33.0 32.1 - gm/dL No No b 11 cyte 35.3 informa informa 2016 mean tion [...] source source data data data data CHART [id number] No No No No Sep 3 NUMBER [...] tion that must be protect ed in accorda nce with the Health Insuran ce [place] [...] source source data data data data CHART [id number] No No No No Sep 3 NUMBER [...] that ssay must be protect ed in accorda nce with the Health Insuran ce [place] lity and Account ability Act. XR ANKLE LEFT AP LATERAL AND [place] Observa Value Referen Units Interpr Notes Date tion ce etation Range Three-v No No No No May 27 iew informa informa informa informa 2013 left tion in tion in tion in [...] Notes Date tion ce etation Range XR FOOT No No [...] and fibula\ .br\rad iograph s dated April 29,\.br \2013 reviewe d.\.br\ \.br\As noted on the [...]
--- OUTSIDE RECORDS SUMMARY | 2017-07-26 15:48 | External Medical Summary Rpt ---
[...] GC/MS CONF 364 ng/mL CUTOFF=20 0[facility]i ng [facility] [id number] [place] [address] 3Dir: Guevara Pacheco MDFor inquiries , the physician may contactBr anch: [phone] Lab: Drugs identified in Urine by [...] Plasma data CONSIDERE D LEGALLYIN TOXICATED UNDER [place] [employer] LAW. Comprehensive metabolic 2000 panel in Serum [...] and [employer] honePer formed at: - [facility] [id number] [place], [place] [id number]Lab Directo r: Guevara Pacheco MD, Phone: [phone] Opiates Negativ Cutoff= No No Opiate Wong [...] [employer] honePer formed at: [facility] [id number] [place], [place] [id number]Lab Directo r: Guevara Pacheco MD, Phone: [phone] Opiates Negativ Cutoff= No No Opiate February [...] in 7:49 PM source source data data [place]# 0.4 0.0 - x10(3)/ No No Feb [...] source source data data data data CHART [id number] No No No No Sep 3 NUMBER [...] source source data data data data CHART [id number] No No No No Sep 3 NUMBER [...]
--- NOTE | 2017-07-26 16:41 | Urgent Treatment Center Report ---
History of Present Issue Date/Time Seen by Provider 07/26/17 1624 Visit Reason Pt arrived:Walked Presenting Problem:PT C/O RIGHT JAW PAIN AFTER HAVING A TOOTH PULLED 07/25/17 Location if Accident: Onset of symptoms date/time:07/26/17 or onset unknown for: Have you (or family members/close friends) recently traveled outside the [place]? N If Yes, where/when: Have you had exposure to infectious disease within the past month? TB? Other? Specify: Patient state that he had tooth pulled 2 days ago State that he has been having pain in his right jaw area ever since he was seen there earlier today and they checked his gum area where they pulled the tooth. State that the dentist checked it and told him he did not have a dry socket and she didn't see anything on xray but he was worried that he may have sinus infection and wanted to make sure that he was on the right antibiotic ALLERGIES Coded Allergies: tramadol (03/16/17) Home Medications Reported Medications Lisinopril 10 MG PO DAILY #30 History Medical History General CAD? No Angina: No [place]: No Hypertension? Yes Hyperlipidemia? No CHF? No DVT? No PE? No COPD? No Asthma? No Anemia? No GERD? No Gastric ulcers? No GI Bleed? No Hernia? No Thyroid Problems? No Hypothyroidism? No CVA? No Seizures? No Diabetes? No Renal Insuffiency? No UTI? No Stones? Yes BPH? No GB Disease: No Nephritic Syndrome? No Asplenia? No Hepatitis? No Sickle Cell Disease? No Arthritis? No Migraines? No Cataracts? No Glaucoma? No MRSA? No HIV? No TB? No Anxiety? Yes Depression? No Cancer? No More? Yes Additional hx: BACK PROBLEMS, ANXIETY, LUPUS Immunization HX DT/Tetanus 1-4 Years Ago Surgical Hx Previous Surgery?Y TONSILS Social History Smoking Hx Smoker: Never Smoker Tobacco: No Packs/day 1 1/2 - 2 Packs Alcohol Alcohol: No Review of Systems All Other Systems Reviewed and Negative ENT mouth pain. Physical Exam Vital Signs Vital Signs Date Time Temp Pulse Resp B/P Pulse O2 O2 Flow FiO2 Ox Delivery Rate 07/26 1544 98.0 76 20 129/68 99 General Appearance normal appearance, WD/WN, no apparent distress Ear, Nose, Throat Pain in mouth after having dental work done 2 days ago was seen earlier today place on Amoxicillin given ibuprofen and pain medication. Came to make sure antibiotic he was on would cover if he was getting sinus infection Respiratory Status Yes: trachea midline, chest symmetrical, non tender chest. No: respiratory distress. Cardiovascular normal exam, regular rate/rhythm, no peripheral edema Neurologic alert, normal exam, oriented x 3 Medical Decision Making LABS/Meds/Orders Pt receiving controlled substance in ED? No Progress [facility] Progress Notes Comment Called dentist Dr Winkler She advised that she did not have the patient come here. State that patient was concerned that he may be getting a sinus infection and wanted to make sure that he was on the right antibiotic in case State that she informed him that it would cover however josé told her he wanted a second opinion Departure Departure Time of Disposition 1638 Disposition DC Home or Self Care(routine) Clinical Impression Primary Impression: Mouth pain Condition STABLE Referrals NO REFERRAL (Family) Patient Instructions DI for Dental Pain Additional Instructions Follow up with dentist as advised FOllow up with family doctor if needed Hot and cold packs as instructed in the office today and take medication as prescribed Discharge Counseling Counseled pt/family regarding diagnosis, medications/RX, home care at 1649
[2017-07-26 16:42] VITALS: BP 129/68
== END 2017-07-26 16:44 | disposition home or self-care (01) ==
LOC: UTC 15:35
DX: K13.79 Other lesions of oral mucosa (principal); I10 Essential (primary) hypertension; M35.9 Systemic involvement of connective tissue, unspecified; Z79.899 Other long term (current) drug therapy